=== PATIENT | female | born 1960 | race Caucasian/White ===

== ENCOUNTER 2022-09-11 14:01 | Emergency (ER) | payer MEDICARE, OTHER, SELFPAY ==
[2022-09-11] VITALS (8 sets, daily range): BP systolic 109–141; BP diastolic 53–68; PULSE 70–94; RESP 12–18; TEMP 36.9; O2SAT 93–98
--- NOTE | 2022-09-11 14:13 | DI.RAD.S_ITS ---
PROCEDURE: XR CHEST 1V INDICATIONS: Shortness of breath TECHNIQUE: One view of the chest was acquired. COMPARISON: None. FINDINGS: Surgical changes and devices: Cervical spinal fusion hardware is partially imaged. Sternotomy wires are noted. Lungs and pleura: Lungs are clear. No pleural effusions or pneumothorax. Mediastinum: Mediastinal contours appear normal. Heart size is normal. Bones and chest wall: No suspicious bony lesions. Overlying soft tissues appear unremarkable. IMPRESSION: No acute cardiopulmonary abnormality. Approved by: Eliel Infante M.D. on 09/11/2022 at 15:05
[2022-09-11 14:47] LABS: Add Manual Diff / Slide Review NO; Basophils Absolute Auto 100 /uL (0-100); Basophils Percent Auto 0.8 % (0-2); Eosinophils Absolute Auto 200 /uL (0-450); Eosinophils Percent Auto 1.9 % (2-4); Hematocrit 31.9 % (36-46); Hemoglobin 10.7 g/dL (12.0-16.0); Lymphocytes Absolute Auto 2100 /uL (1100-4500); Lymphocytes Percent Auto 23.8 % (25-40); Mean Corpuscular HGB Conc 33.4 % (30-36); Mean Corpuscular Hemoglobin 28.9 PG (26-34); Mean Corpuscular Volume 86.4 fL (80-100); Monocytes Absolute Auto 800 /uL (0-900); Monocytes Percent Auto 8.6 % (3-14); Neutrophils Absolute Auto 5700 /uL (1500-7000); Neutrophils Percent Auto 64.9 % (50-75); Platelet Count 291 X10^3/uL (150-400); Red Cell Distribution Width 14.5 % (11.6-14.8); White Blood Cell Count 8.8 X10^3/uL (4.5-11.0)
[2022-09-11 14:54] LABS: INR 1.2 (0.9-1.3); Prothrombin Time 13.2 SECONDS (10.1-12.7)
[2022-09-11 14:59] LABS: Alanine Aminotransferase 14 IU/L (<35); Albumin 3.5 g/dL (3.5-5.0); Albumin Globulin Ratio 0.8 (1.0-2.8); Alkaline Phosphatase 70 U/L (38-126); Aspartate Aminotransferase 19 IU/L (14-36); BUN Creatinine Ratio 16.3 (6-22); Bilirubin Total 0.4 mg/dL (0.2-1.3); Blood Urea Nitrogen 17 mg/dL (7-17); Calcium 8.5 mg/dL (8.4-10.2); Carbon Dioxide 26 mmol/L (22-32); Chloride 108 mmol/L (98-107); Estimated Glomerular Filt Rate > 60 mL/min (>60); Globulin 4.3 g/dL (1.7-4.1); Glucose 93 mg/dL (80-110); HEMOLYSIS < 15 (0-50); Sodium 138 mmol/L (137-145); Total Protein 7.8 g/dL (6.3-8.2)
[2022-09-11] MEDS: ALBUTEROL/IPRATROPIUM 3 ML AMPUL INH (14:59)
[2022-09-11 15:00] LABS: Lactate (Lactic Acid) 0.6 mmol/L (0.7-2.1)
--- NOTE | 2022-09-11 15:05 | ED_ITS ---
HPI - SOB/Dyspnea General Chief Complaint: Shortness of Breath/Dyspnea Stated Complaint: upper resp symptoms, SOB Time Seen by Provider: 09/11/22 14:20 Mode of arrival: Family Vehicle History of Present Illness HPI Narrative: Patient is a 61-year-old female history of tobacco abuse presenting today with ongoing cough and body aches for about the last 3 weeks. She feels like it is just not getting any better she is having some phlegm. She also complains of or thopnea at night but denies any peripheral edema. She denies any chest pain. She is low-grade fever she obviously has some nasal congestion as well. Her was recently the hospital with pneumonia. She denies any nausea or vomiting she is having some decrease in appetite. Related Data Previous Rx's Medication Instructions Recorded albuterol sulfate 90 mcg/actuation 2 puff inhalation Q4-6H PRN 09/11/22 aerosol inhaler shortness of breath or wheezing #8.5 grams prednisone 20 mg tablet 40 mg PO DAILY #10 tabs 09/11/22 Allergies Allergy/AdvReac Type Severity Reaction Status Date / Time Penicillins Allergy Rash Verified 09/11/22 14:16 Review of Systems Review of Systems ROS Unobtainable: All systems reviewed & are unremarkable except as noted in HPI and below Patient History Social History Smoking Status: Current every day smoker Smoking Status: Current every day smoker Substance Use Type: does not use Exam Initial Vital Signs Initial Vital Signs: Vital Signs Temperature 98.4 F 09/11/22 14:14 Pulse Rate 94 H 09/11/22 14:14 Respiratory Rate 18 09/11/22 14:14 Blood Pressure 141/68 H 09/11/22 14:14 Pulse Oximetry 96 09/11/22 14:14 Oxygen Delivery Method Room Air 09/11/22 14:14 GENERAL: Alert 61-year-old female appears to not feel well and in no acute distress. HEENT: Head atraumatic,EOMI, pupils reactive, face symmetric, moist mucous membranes CARDIOVASCULAR: Regular rate and rhythm without murmurs, rubs or gallops. RESPIRATORY: Breath sounds equal bilaterally, no wheezes rales or rhonchi. No respiratory distress speaks in full sentences ABDOMEN: Soft, nontender. Normoactive bowel sounds all 4 quadrants. No guarding or rebound. EXTREMITIES: Normal range of motion, no clubbing or edema. Neurovascularly intact NEUROLOGICAL: Alert and oriented x4.Normal gait and speech. SKIN: Warm, dry, no laceration, no petechiae, no rashes or lesions. Course Orders Ordered: Discontinued Medications Albuterol/Ipratropium (Albuterol/Ipratropium 3 Ml Ampul) 3 ml INH NOW ONE Stop: 09/11/22 14:58 Last Admin: 09/11/22 14:59 Dose: 3 ml Documented By: DARCIE Methylprednisolone (Methylprednisolone 125 Mg/2 Ml Vial) 125 mg IV NOW ONE Stop: 09/11/22 15:18 Last Admin: 09/11/22 15:35 Dose: 125 mg Documented By: AT Vital Signs Vital signs: Vital Signs - 8 hr 09/11/22 14:14 09/11/22 14:59 09/11/22 14:20 Temperature 98.4 F Pulse Rate 94 H 71 76 Respiratory Rate 18 18 14 Blood Pressure 141/68 H Pulse Oximetry 96 98 97 Oxygen Delivery Method Room Air Room Air 09/11/22 14:22 09/11/22 14:22 09/11/22 14:30 Temperature Pulse Rate 70 Respiratory Rate 13 Blood Pressure 131/63 117/58 L Pulse Oximetry 95 Oxygen Delivery Method 09/11/22 14:30 09/11/22 15:00 09/11/22 15:00 Temperature Pulse Rate 74 72 Respiratory Rate 13 15 Blood Pressure 111/53 L Pulse Oximetry 97 97 Oxygen Delivery Method Room Air 09/11/22 15:30 09/11/22 15:30 09/11/22 16:00 Temperature Pulse Rate 86 Respiratory Rate 12 Blood Pressure 109/53 L 110/53 L Pulse Oximetry 94 Oxygen Delivery Method 09/11/22 16:00 Temperature Pulse Rate 84 Respiratory Rate 13 Blood Pressure Pulse Oximetry 93 Oxygen Delivery Method MDM - SOB/Dyspnea Lab Data 09/11/22 14:30 09/11/22 14:30 Labs: Lab Results 09/11/22 09/11/22 09/11/22 Range/Units 14:30 14:30 14:30 WBC 8.8 (4.5-11.0) X10^3/uL RBC 3.70 L (4.0-5.2) X10^6/uL Hgb 10.7 L (12.0-16.0) g/dL Hct 31.9 L (36-46) % MCV 86.4 (80-100) fL MCH 28.9 (26-34) PG MCHC 33.4 (30-36) % RDW 14.5 (11.6-14.8) % Plt Count 291 (150-400) X10^3/uL Neut % (Auto) 64.9 (50-75) % Lymph % (Auto) 23.8 L (25-40) % [place] % (Auto) 8.6 (3-14) % Eos % (Auto) 1.9 L (2-4) % Baso % (Auto) 0.8 (0-2) % Neut # (Auto) 5700 (8300-3585) /uL Lymph # (Auto) 2100 (7565-7345) /uL [place] # (Auto) 800 (0-900) /uL Eos # (Auto) 200 (0-450) /uL Baso # (Auto) 100 (0-100) /uL PT 13.2 H (10.1-12.7) SECONDS INR 1.2 (0.9-1.3) Sodium 138 (137-145) mmol/L Potassium 4.0 (3.4-5.1) mmol/L Chloride 108 H (98-107) mmol/L Carbon Dioxide 26 (22-32) mmol/L BUN 17 (7-17) mg/dL Creatinine 1.04 (0.52-1.04) mg/dL Estimated GFR > 60 (>60) mL/min BUN/Creatinine Ratio 16.3 (6-22) Glucose 93 (80-110) mg/dL Lactate (0.7-2.1) mmol/L Calcium 8.5 (8.4-10.2) mg/dL Total Bilirubin 0.4 (0.2-1.3) mg/dL AST 19 (14-36) IU/L ALT 14 (<35) IU/L Alkaline Phosphatase 70 (38-126) U/L Troponin I < 0.012 (0.01-0.034) ng/mL NT-Pro-B Natriuret Pep 210 H (<125) pg/mL Total Protein 7.8 (6.3-8.2) g/dL Albumin 3.5 (3.5-5.0) g/dL Globulin 4.3 H (1.7-4.1) g/dL Albumin/Globulin Ratio 0.8 L (1.0-2.8) Procalcitonin (<0.5) ng/mL Chlamy pneumoniae PCR (Not Detect) Adenovirus (PCR) (Not Detect) B. pertussis DNA (PCR) (Not Detecte) B.parapertussis DNA PCR (Not Detecte) Coronavirus OC43 (PCR) (Not Detect) Coronavirus HKU1 (PCR) (Not Detect) Coronavirus 229E (PCR) (Not Detect) SARS-CoV-2 (PCR) (Not Detecte) Coronavirus NL63 (PCR) (Not Detect) Human Metapneumovir PCR (Not Detect) Influenza Type A (PCR) (Not Detect) Influenza Type B (PCR) (Not Detect) M. pneumoniae (PCR) (Not Detect) Parainfluenza 1 (PCR) (Not Detect) Parainfluenza 2 (PCR) (Not Detect) Parainfluenza 3 (PCR) (Not Detect) Parainfluenza 4 (PCR) (Not Detect) RSV (PCR) (Not Detect) Entero/Rhino (PCR) (Not Detect) 09/11/22 09/11/22 09/11/22 Range/Units 14:30 14:30 14:37 WBC (4.5-11.0) X10^3/uL RBC (4.0-5.2) X10^6/uL Hgb (12.0-16.0) g/dL Hct (36-46) % MCV (80-100) fL MCH (26-34) PG MCHC (30-36) % RDW (11.6-14.8) % Plt Count (150-400) X10^3/uL Neut % (Auto) (50-75) % Lymph % (Auto) (25-40) % [place] % (Auto) (3-14) % Eos % (Auto) (2-4) % Baso % (Auto) (0-2) % Neut # (Auto) (3076-0140) /uL Lymph # (Auto) (7171-2774) /uL [place] # (Auto) (0-900) /uL Eos # (Auto) (0-450) /uL Baso # (Auto) (0-100) /uL PT (10.1-12.7) SECONDS INR (0.9-1.3) Sodium (137-145) mmol/L Potassium (3.4-5.1) mmol/L Chloride (98-107) mmol/L Carbon Dioxide (22-32) mmol/L BUN (7-17) mg/dL Creatinine (0.52-1.04) mg/dL Estimated GFR (>60) mL/min BUN/Creatinine Ratio (6-22) Glucose (80-110) mg/dL Lactate 0.6 L (0.7-2.1) mmol/L Calcium (8.4-10.2) mg/dL Total Bilirubin (0.2-1.3) mg/dL AST (14-36) IU/L ALT (<35) IU/L Alkaline Phosphatase (38-126) U/L Troponin I (0.01-0.034) ng/mL NT-Pro-B Natriuret Pep (<125) pg/mL Total Protein (6.3-8.2) g/dL Albumin (3.5-5.0) g/dL Globulin (1.7-4.1) g/dL Albumin/Globulin Ratio (1.0-2.8) Procalcitonin 0.04 (<0.5) ng/mL Chlamy pneumoniae PCR Not detected (Not Detect) Adenovirus (PCR) Not detected (Not Detect) B. pertussis DNA (PCR) Not detected (Not Detecte) B.parapertussis DNA PCR Not detected (Not Detecte) Coronavirus OC43 (PCR) Not detected (Not Detect) Coronavirus HKU1 (PCR) Not detected (Not Detect) Coronavirus 229E (PCR) Not detected (Not Detect) SARS-CoV-2 (PCR) Not detected (Not Detecte) Coronavirus NL63 (PCR) Detected H (Not Detect) Human Metapneumovir PCR Not detected (Not Detect) Influenza Type A (PCR) Not detected (Not Detect) Influenza Type B (PCR) Not detected (Not Detect) M. pneumoniae (PCR) Not detected (Not Detect) Parainfluenza 1 (PCR) Not detected (Not Detect) Parainfluenza 2 (PCR) Not detected (Not Detect) Parainfluenza 3 (PCR) Not detected (Not Detect) Parainfluenza 4 (PCR) Not detected (Not Detect) RSV (PCR) Not detected (Not Detect) Entero/Rhino (PCR) Detected H (Not Detect) Imaging Data Chest x-ray: Radiologist's Impression: PROCEDURE:? XR CHEST 1V ? INDICATIONS:? Shortness of breath ? TECHNIQUE:? One view of the chest was acquired.? ? COMPARISON:? None. ? FINDINGS:? ? Surgical changes and devices:? Cervical spinal fusion hardware is partially imaged.? Sternotomy wires are noted. ? Lungs and pleura:? Lungs are clear.? No pleural effusions or pneumothorax.? ? Mediastinum:? Mediastinal contours appear normal.? Heart size is normal.? ? Bones and chest wall:? No suspicious bony lesions.? Overlying soft tissues appear unremarkable.? ? IMPRESSION:? No acute cardiopulmonary abnormality. ? ? ? Approved by: Eliel Infante M.D. on 09/11/2022 at 15:05? ECG Data Interpretation: Normal sinus rhythm rate 71 NJ interval 152 QRS [address] changes no T- wave inversions, no priors MDM Narrative Medical decision making narrative: Patient 61-year-old female history of tobacco abuse presenting today with ongoing cough body aches upper respiratory like symptoms for the last 3 weeks without any improvement. Does not show any pneumonia. She is no mild anemia with 10.8 hematocrit 31.9, she has no left shift, electrolytes show any abnorm ality lactate is 0.6, procalcitonin is 0.04 BNP is 210 and troponin negative. Respiratory panel is positive for coronavirus, entero/rhinovirus. At this time patient's symptoms are likely secondary to multiple viruses. She is not hypoxic hypotensive or tachycardic she does not meet any admission criteria there is no evidence of severe sepsis. She needs no antibiotics. She was given DuoNeb nebu lizer here in the emergency department is seems to have helped. She was also given Solu-Medrol. Type will fit her with a prednisone taper No evidence of congestive heart failure this is unlikely pulmonary embolism due to infectious like symptoms, no pneumothorax or pneumonia not identified on x-ra y Discharge Plan Departure Patient Disposition: Home Clinical Impression: Upper respiratory infection Instructions: DI for Viral Upper Respiratory Infection -- Adult Activity Restrictions/Additional Instructions: *You have been diagnosed with upper respiratory infection, positive for non- COVID coronavirus, entero/rhinovirus *What to do: At this time no antibiotics are needed. Continue to rest and stay hydrated you will get better but are currently battling 3 different viruses *Continue to take medications as directed Prednisone 40 mg once a day for 5 days-> [facility] Albuterol inhaler 1-2 puffs every 6 hours if needed for coughing or shortness of breath *Follow up with your primary care provider in 2-3 days or call [phone] *Return to ER if you should have increasing shortness of breath persistent cough dizziness lightheadedness not tolerating fluids or any new, worsening or concerning symptoms Prescriptions: New prednisone 20 mg tablet 40 mg PO DAILY Qty: 10 0RF albuterol sulfate 90 mcg/actuation HFA aerosol inhaler 2 puff INHALATION Q4-6H PRN (Reason: shortness of breath or wheezing) Qty: 8.5 0RF Stand Alone Forms: Patient Portal/API
[2022-09-11 15:12] LABS: NT-proBNP (BNP-Adult 18+) 210 pg/mL (<125); Troponin I < 0.012 ng/mL (0.01-0.034)
[2022-09-11 15:15] LABS: Adenovirus Not Detected (Not Detect); Coronavirus 229E Not Detected (Not Detect); Coronavirus HKU1 Not Detected (Not Detect); Coronavirus NL 63 Detected (Not Detect); SARS- CoV-2 Not Detected (Not Detecte)
[2022-09-11 15:16] LABS: B. parapertussis Not Detected (Not Detecte); Bordetella pertussis Not Detected (Not Detecte); Chlamydophila pneumoniae Not Detected (Not Detect); Coronavirus OC43 Not Detected (Not Detect); Human Metapneumovirus Not Detected (Not Detect); Human Rhinovirus/Enterovirus Detected (Not Detect); Influenza A Not Detected (Not Detect); Influenza B Not Detected (Not Detect); Mycoplasma pneumoniae Not Detected (Not Detect); Parainfluenza Virus 1 Not Detected (Not Detect); Parainfluenza Virus 2 Not Detected (Not Detect); Parainfluenza Virus 3 Not Detected (Not Detect); Parainfluenza Virus 4 Not Detected (Not Detect); Respiratory Syncytial Virus Not Detected (Not Detect)
[2022-09-11 15:17] LABS: Procalcitonin 0.04 ng/mL (<0.5)
[2022-09-11] MEDS: methylPREDNISolone 125 MG/2 ML VIAL IV (15:35)
--- NOTE | 2022-09-11 16:41 | PC.NURSE ---
RT at bedside providing spacer training.
== END 2022-09-11 16:58 | disposition home or self-care (01) ==
PROVIDERS: Emergency Provider Emergency Medicine
DX: J06.9 Acute upper respiratory infection, unspecified (principal); R06.02 Shortness of breath; B34.2 Coronavirus infection, unspecified; B34.8 Other viral infections of unspecified site; Z20.822 Contact with and (suspected) exposure to COVID-19
CPT/HCPCS: 36415; 71045; 80053; 83605; 83880; 84145; 84484; 85025; 85610; 87633; 93005; 93010; 94640; 96374; 99284; J2930

== ENCOUNTER 2023-02-14 11:46 | Emergency (ER) | payer MEDICARE, OTHER, SELFPAY ==
[2023-02-14] VITALS (11 sets, daily range): BP systolic 149–163; BP diastolic 66–120; PULSE 53–88; RESP 14–18; TEMP 37; O2SAT 96–100; BMI 33.0
[2023-02-14] MEDS: ONDANSETRON 4 MG/2 ML INJ IV (12:09)
[2023-02-14] MEDS: SODIUM CHLORIDE 0.9% 1,000 ML 1000 ML IV ×2 (12:10→14:12)
--- NOTE | 2023-02-14 12:20 | ED.NAVMDI ---
HPI - Nausea/Vomiting/Diarrhea General Chief complaint: Nausea/Vomiting/Diarrhea Stated complaint: dry heaves/dehydrated Time Seen by Provider: 02/14/23 11:50 Source: patient Mode of arrival: Ambulatory History of Present Illness HPI Narrative: Patient is a 62-year-old female who is here for evaluation of approximately 3 days of vomiting. No diarrhea. Other members of the family had fevers but no GI symptoms. Patient has had subjective fevers at home. No recent travel. She did complete a course of Macrobid for urinary tract infection approximately 1 week ago. Has not tried anything for her symptoms prior to arrival. Related Data Previous Rx's Medication Instructions Recorded albuterol sulfate 90 mcg/actuation 2 puff inhalation Q4-6H PRN 09/11/22 aerosol inhaler shortness of breath or wheezing #8.5 grams prednisone 20 mg tablet 40 mg PO DAILY #10 tabs 09/11/22 ondansetron 4 mg disintegrating 4 mg PO Q6H PRN nausea and 02/14/23 tablet vomiting #10 tabs Allergies Allergy/AdvReac Type Severity Reaction Status Date / Time Penicillins Allergy Rash Verified 09/11/22 14:16 Review of Systems Constitutional Constitutional: Reports system reviewed and no additional complaints, except as documented Cardiovascular Cardiovascular: Reports system reviewed and no additional complaints, except as documented Respiratory Respiratory: Reports system reviewed and no additional complaints, except as documented Gastrointestinal Gastrointestinal: Reports system reviewed and no additional complaints, except as documented Genitourinary Genitourinary: Reports system reviewed and no additional complaints, except as documented Hematologic/Lymphatic On Anticoagulants: No Patient History Social History Smoking Status: Current every day smoker Smoking Status: Current every day smoker alcohol intake frequency: holidays/special occasions only Substance Use Type: does not use Exam Initial Vital Signs Initial Vital Signs: Vital Signs Temperature 98.6 F 02/14/23 12:00 Pulse Rate 71 02/14/23 12:00 Respiratory Rate 18 02/14/23 12:00 Blood Pressure 163/83 H 02/14/23 12:00 Pulse Oximetry 97 02/14/23 12:00 Oxygen Delivery Method Room Air 02/14/23 12:00 Const General: cooperative and comfortable HENMT Head: normal to inspection and normocephalic Resp Effort & Inspection: normal respiratory effort Cardio Rate: regular rate GI Inspection: non-distended Skin General: no rashes or lesions noted Neuro General: patient alert, patient awake and moves all extremities Extrem General: normal to inspection and capillary refill normal Course Orders Ordered: ED Orders 02/14/23 11:55 COVID19 -Nasal RAPID Stat Discontinued Medications Sodium Chloride (Normal Saline 0.9%) 1,000 mls @ 1,000 mls/hr IV BOLUS ONE Stop: 02/14/23 12:50 Last Infusion: 02/14/23 13:10 Dose: 0 mls/hr Documented By: Admin: 02/14/23 12:10 Dose: 1,000 mls/hr Documented By: LEN Sodium Chloride (Normal Saline 0.9%) 1,000 mls @ 1,000 mls/hr IV BOLUS ONE Stop: 02/14/23 14:48 Last Infusion: 02/14/23 15:17 Dose: 0 mls/hr Documented By: Admin: 02/14/23 14:12 Dose: 1,000 mls/hr Documented By: LEN Ondansetron HCl (Ondansetron 4 Mg/2 Ml Inj) 4 mg IV NOW ONE Stop: 02/14/23 11:52 Last Admin: 02/14/23 12:09 Dose: 4 mg Documented By: LEN Vital Signs Vital signs: Vital Signs - 8 hr 02/14/23 12:00 02/14/23 14:36 02/14/23 13:35 Temperature 98.6 F Pulse Rate 71 53 L 54 L Respiratory Rate 18 18 Blood Pressure 163/83 H 159/70 H Pulse Oximetry 97 100 98 Oxygen Delivery Method Room Air Room Air 02/14/23 14:00 02/14/23 14:01 02/14/23 14:01 Temperature Pulse Rate 55 L 56 L Respiratory Rate Blood Pressure 157/70 H Pulse Oximetry 96 97 Oxygen Delivery Method 02/14/23 14:30 02/14/23 14:31 02/14/23 14:31 Temperature Pulse Rate 54 L 54 L Respiratory Rate Blood Pressure 159/70 H Pulse Oximetry 99 100 Oxygen Delivery Method MDM - Nausea/Vomiting/Diarrhea Lab Data Labs: Lab Results 02/14/23 Range/Units 11:55 SARS-CoV-2 (PCR) Positive H (Negative) MDM Narrative Medical decision making narrative: Patient is well-appearing. Does have dry mucous membranes but did receive 2 L of normal saline by IV. During her time here she did develop upper respiratory symptoms. Her COVID test was positive. She was informed of this. She has been able to tolerate small amounts of fluid. I do feel that we can hold on any labs or any radiologic studies. Will discharge patient home with nausea medication. Discharge Plan Departure Patient Disposition: Home Clinical Impression: Nausea and vomiting, COVID-19 Instructions: Nausea and Vomiting-Adult, COVID-19 Activity Restrictions/Additional Instructions: Your COVID positive CD need to follow all of the current CDC guidelines with regard to quarantine. I do recommend that you increase your fluid intake by drinking small amounts more frequently. Use the nausea medication as needed. Contact your primary doctor for follow-up. Prescriptions: New ondansetron 4 mg tablet,disintegrating 4 mg PO Q6H PRN (Reason: nausea and vomiting) Qty: 10 0RF No Action prednisone 20 mg tablet 40 mg PO DAILY Qty: 10 0RF albuterol sulfate 90 mcg/actuation HFA aerosol inhaler 2 puff INHALATION Q4-6H PRN (Reason: shortness of breath or wheezing) Qty: 8.5 0RF Referrals: Stanton Mas MD [Primary Care Provider] - Stand Alone Forms: Patient Portal/API
[2023-02-14 13:33] LABS: COVID19 -Nasal RAPID POSITIVE (Negative)
== END 2023-02-14 15:58 | disposition home or self-care (01) ==
PROVIDERS: Emergency Provider Emergency Medicine; PCP Internal Medicine
DX: U07.1 COVID-19 (principal); R11.2 Nausea with vomiting, unspecified
CPT/HCPCS: 36415; 87635; 96361; 96374; 99284; C9803; J2405

== ENCOUNTER 2023-07-25 09:40 | Emergency (ER) | payer MEDICARE, OTHER, SELFPAY ==
[2023-07-25 09:46] VITALS: BP 148/68; PULSE 81; RESP 14; TEMP 36.6; O2SAT 99; BMI 32.8
[2023-07-25 10:21] LABS: Appearance Urine UA SL CLOUDY; Bilirubin Urine UA NEGATIVE (NEGATIVE); Color Urine UA BROWN; Glucose Urine UA NEGATIVE (Negative); Ketones Urine UA NEGATIVE (NEGATIVE); Leukocyte Esterase Urine UA 1+ (NEGATIVE); Nitrite Urine UA NEGATIVE (Negative); Occult Blood Urine UA 3+ (Negative); Protein Urine UA 2+ (Negative); Specific Gravity Urine UA 1.015 (1.000-1.035); Urobilinogen Urine UA 0.2 E.U./dL (0.2); pH Urine UA 6.5 (4.5-8.0)
[2023-07-25 10:22] LABS: Urine Volume 10mL (spun)
[2023-07-25 10:26] LABS: Bacteria Urine None Seen; Culture Indicated Urine Specimen Cultured; RBC Urine 30-100/HPF (0-5/HPF); Squamous Epithelial Cell Urine 0-1 /HPF (0-5/HPF); WBC Urine 5-10/HPF (0-5/HPF)
--- NOTE | 2023-07-25 11:28 | ED_ITS ---
HPI - Female Genitourinary <Clyde Metzger PA-C - Last Filed: 07/25/23 16:27> General Chief complaint: Urogenital-Female Stated complaint: passing blood when urinating Time Seen by Provider: 07/25/23 11:16 Source: patient Mode of arrival: Ambulatory History of Present Illness HPI Narrative: 82-year-old female with past medical history hyperlipidemia, chronic pain, frequent UTIs presents to the ED with 2 months of urinary hesitancy. Patient states that this morning she soft roxie blood in her urine which brought her to the ED. patient denies fever, chills, nausea, vomiting, chest pain, shortness of breath, dysuria, lightheadedness, dizziness, syncope. Patient denies urinary frequency, urinary urgency. Patient does endorse frequent UTIs, last UTI was 3 months ago. However, patient states that her customary urinary tract infection symptoms such as dysuria and frequency are absent this time around. Patient was seen by her PCP, an ultrasound was performed last week. Patient also endorses a history of kidney stones. Patient is a current smoker, has smoked for 40 years. Patient is not on blood thinners, takes 81 mg aspirin daily. Related Data Previous Rx's Medication Instructions Recorded cefpodoxime 200 mg tablet 200 mg PO BID 10 days #20 tabs 07/25/23 ciprofloxacin HCl 500 mg tablet 500 mg PO Q12H 7 days #14 tabs 07/25/23 tamsulosin 0.4 mg capsule 0.4 mg PO BEDTIME #30 caps 07/25/23 Allergies Allergy/AdvReac Type Severity Reaction Status Date / Time Penicillins Allergy Rash Verified 07/25/23 09:49 Review of Systems <Clyde Metzger PA-C - Last Filed: 07/25/23 16:27> Constitutional Constitutional: Denies chills, Denies fatigue, Denies fever(s), Denies frequent falls, Denies lethargy and Denies weakness Eyes Eyes: Denies change in vision, Denies eye discharge, Denies irritation and Denies loss of vision ENT Ears, Nose, Mouth, and Throat: Denies change in voice, Denies dizziness, Denies neck pain, Denies sore throat and Denies throat swelling Cardiovascular Cardiovascular: Denies chest pain, Denies irregular heart rhythm, Denies lightheadedness, Denies palpitations, Denies dyspnea, Denies dyspnea on exertion and Denies orthopnea Respiratory Respiratory: Denies cough, Denies dyspnea, Denies dyspnea on exertion and Denies wheezing Gastrointestinal Gastrointestinal: Denies abdominal pain, Denies change in bowel habits, Denies diarrhea, Denies nausea and Denies vomiting Musculoskeletal Musculoskeletal: Denies neck pain and Denies numbness Integumentary/Breasts Skin/Breast: Denies pruritus, Denies erythema, Denies rash and Denies wounds Neurologic Neurologic: Denies behavioral changes, Denies confusion, Denies dizziness, Denies frequent falls, Denies loss of vision, Denies numbness and Denies weakness Psychiatric Psychiatric: Denies anxiety, Denies behavioral changes, Denies confusion, Denies depression, Denies homicidal ideation and Denies suicidal ideation Endocrine Endocrine: Denies fatigue, Denies flushing and Denies palpitations Hematologic/Lymphatic Hematologic/Lymphatic: Denies easy bruising Allergic/Immunologic Allergic/Immunologic: Denies urticaria, Denies throat swelling and Denies wheezing Patient History <Clyde Metzger PA-C - Last Filed: 07/25/23 16:27> alcohol intake frequency: holidays/special occasions only Substance Use Type: does not use Exam <TETE Lara Last Filed: 07/25/23 16:27> Narrative Exam Narrative: Const General:?cooperative, healthy appearing and comfortable [facility] Head:?normal to inspection Ears:?hearing grossly normal bilaterally Nose:?external nose normal Face and sinus:?normal facial exam and sinuses nontender Mouth:?oral mucosae normal Throat:?posterior oropharynx normal Eyes General:?appearance normal, both eyes and all related structures Neck Neck:?normal visual inspection and no lymphadenopathy noted Resp Effort & Inspection:?normal respiratory effort Auscultation:?clear to auscultation bilaterally Cardio Rate:?regular rate Rhythm:?regular rhythm GI Abdomen is soft, nondistended, nontender to palpation. There is no CVA tenderness. Neuro General:?patient alert, patient awake and patient oriented x3 Initial Vital Signs Initial Vital Signs: Vital Signs Temperature 98 F 07/25/23 09:46 Pulse Rate 81 07/25/23 09:46 Respiratory Rate 14 07/25/23 09:46 Blood Pressure 148/68 H 07/25/23 09:46 Pulse Oximetry 99 07/25/23 09:46 Oxygen Delivery Method Room Air 07/25/23 09:46 <Madeline Sharp DO - Last Filed: 07/25/23 19:53> Initial Vital Signs Initial Vital Signs: Vital Signs Temperature 98 F 07/25/23 09:46 Pulse Rate 81 07/25/23 09:46 Respiratory Rate 14 07/25/23 09:46 Blood Pressure 148/68 H 07/25/23 09:46 Pulse Oximetry 99 07/25/23 09:46 Oxygen Delivery Method Room Air 07/25/23 09:46 Course <Clyde Metzger PA-C - Last Filed: 07/25/23 16:27> Orders Ordered: ED Orders 07/25/23 11:29 CT abdomen pelvis w con Stat 07/25/23 12:10 CBC Auto Diff [Complete Blood Count AUTO DIFF] Stat CMP [Comprehensive Metabolic Panel] Stat Lactate (Lactic Acid) Stat Lipase Stat 07/25/23 14:17 XR KUB Stat Discontinued Medications Diphenhydramine HCl (Diphenhydramine 50 Mg/Ml Vial) 25 mg IV NOW ONE Stop: 07/25/23 15:00 Last Admin: 07/25/23 15:00 Dose: 25 mg Documented By: YARY Ciprofloxacin (Cipro) 400 mg in 200 mls @ 200 mls/hr IV NOW ONE Stop: 07/25/23 15:09 Last Infusion: 07/25/23 14:55 Dose: 0 mls/hr Documented By: Admin: 07/25/23 14:42 Dose: 200 mls/hr Documented By: YARY Ceftriaxone Sodium 1,000 mg/ (Sodium Chloride) 100 mls @ 200 mls/hr IV NOW ONE Stop: 07/25/23 15:30 Last Infusion: 07/25/23 16:12 Dose: Infused Documented By: Admin: 07/25/23 15:38 Dose: 200 mls/hr Documented By: YARY Vital Signs Vital signs: Vital Signs - 8 hr 07/25/23 12:11 07/25/23 14:08 07/25/23 15:54 Pulse Rate 65 65 67 Respiratory Rate 16 18 18 Blood Pressure 123/53 L 144/67 H 142/65 H Pulse Oximetry 98 99 98 Oxygen Delivery Method Room Air Room Air Room Air <DO Dionisio Wynn Last Filed: 07/25/23 19:53> Orders Ordered: ED Orders 07/25/23 11:29 CT abdomen pelvis w con Stat 07/25/23 12:10 CBC Auto Diff [Complete Blood Count AUTO DIFF] Stat CMP [Comprehensive Metabolic Panel] Stat Lactate (Lactic Acid) Stat Lipase Stat 07/25/23 14:17 XR KUB Stat Discontinued Medications Diphenhydramine HCl (Diphenhydramine 50 Mg/Ml Vial) 25 mg IV NOW ONE Stop: 07/25/23 15:00 Last Admin: 07/25/23 15:00 Dose: 25 mg Documented By: YARY Ciprofloxacin (Cipro) 400 mg in 200 mls @ 200 mls/hr IV NOW ONE Stop: 07/25/23 15:09 Last Infusion: 07/25/23 14:55 Dose: 0 mls/hr Documented By: Admin: 07/25/23 14:42 Dose: 200 mls/hr Documented By: YARY Ceftriaxone Sodium 1,000 mg/ (Sodium Chloride) 100 mls @ 200 mls/hr IV NOW ONE Stop: 07/25/23 15:30 Last Infusion: 07/25/23 16:12 Dose: Infused Documented By: Admin: 07/25/23 15:38 Dose: 200 mls/hr Documented By: YARY Vital Signs Vital signs: Vital Signs - 8 hr 07/25/23 12:11 07/25/23 14:08 07/25/23 15:54 Pulse Rate 65 65 67 Respiratory Rate 16 18 18 Blood Pressure 123/53 L 144/67 H 142/65 H Pulse Oximetry 98 99 98 Oxygen Delivery Method Room Air Room Air Room Air MDM - Female Genitourinary <Clyde Metzger PA-C - Last Filed: 07/25/23 16:27> Lab Data 07/25/23 12:10 07/25/23 12:10 Labs: Lab Results 07/25/23 07/25/23 Range/Units 10:13 12:10 WBC 7.8 (4.5-11.0) X10^3/uL RBC 4.32 (4.0-5.2) X10^6/uL Hgb 13.1 (12.0-16.0) g/dL Hct 38.9 (36-46) % MCV 90.0 (80-100) fL MCH 30.2 (26-34) PG MCHC 33.6 (30-36) % RDW 13.6 (11.6-14.8) % Plt Count 177 (150-400) X10^3/uL Neut % (Auto) 58.7 (50-75) % Lymph % (Auto) 30.2 (25-40) % [place] % (Auto) 9.0 (3-14) % Eos % (Auto) 1.6 L (2-4) % Baso % (Auto) 0.5 (0-2) % Neut # (Auto) 4600 (0863-0083) /uL Lymph # (Auto) 2400 (6513-7785) /uL [place] # (Auto) 700 (0-900) /uL Eos # (Auto) 100 (0-450) /uL Baso # (Auto) 0 (0-100) /uL Sodium 140 (137-145) mmol/L Potassium 4.0 (3.4-5.1) mmol/L Chloride 108 H (98-107) mmol/L Carbon Dioxide 28 (22-32) mmol/L BUN 19 H (7-17) mg/dL Creatinine 0.99 (0.52-1.04) mg/dL Estimated GFR > 60 (>60) mL/min BUN/Creatinine Ratio 19.2 (6-22) Glucose 86 (80-110) mg/dL Lactate 0.9 (0.7-2.1) mmol/L Calcium 9.3 (8.4-10.2) mg/dL Total Bilirubin 0.5 (0.2-1.3) mg/dL AST 24 (14-36) IU/L ALT 16 (<35) IU/L Alkaline Phosphatase 59 (38-126) U/L Total Protein 7.6 (6.3-8.2) g/dL Albumin 4.1 (3.5-5.0) g/dL Globulin 3.5 (1.7-4.1) g/dL Albumin/Globulin Ratio 1.2 (1.0-2.8) Lipase 47 (23-300) U/L Urine Color Brown Urine Appearance Sl cloudy Urine pH 6.5 (4.5-8.0) Ur Specific [place] 1.015 (1.000-1.035) Urine Protein 2+ H (Negative) Urine Glucose (UA) Negative (Negative) g/dL Urine Ketones Negative (NEGATIVE) Urine Occult Blood 3+ H (Negative) Urine Nitrate Negative (Negative) Urine Bilirubin Negative (NEGATIVE) Urine Urobilinogen 0.2 (0.2) E.U./dL Ur Leukocyte Esterase 1+ H (NEGATIVE) Urine RBC 30-100/hpf H (0-5/HPF) Urine WBC 5-10/hpf H (0-5/HPF) Ur Squamous Epith Cells 0-1 /hpf (0-5/HPF) Urine Bacteria None seen (None) Ur Culture Indicated? Specimen cultured Vol Urine Centrifuged 10ml (spun) MDM Narrative Medical decision making narrative: 82-year-old female with past medical history hyperlipidemia, chronic pain, frequent UTIs presents to the ED with 2 months of urinary hesitancy. Concern for UTI versus pyelonephritis versus nephrolithiasis versus malignancy versus other intra-abdominal pathology versus other. Will obtain labs, lactate, lipase, UA, CT abdomen pelvis. Will reassess. UA positive for UTI. Urine shows 3+ occult blood, 1+ leukocyte esterase, 30-100 urine RBC, 5-10 urine WBC. Labs within normal limits. CT abdomen pelvis shows a 5-6 mm stone in the proximal right ureter, resulting in moderate hydronephrosis and mild kidney edema. There is a small burden of left-sided nonobstructing nephrolithiasis, largest measuring 8 mm. Discussed findings with urologist Dr. Leger. He recommends doing a dose of IV antibiotics in the ED, followed with a antibiotic p.o. prescription and a prescription for tamsulosin. He will see the patient in clinic tomorrow for further evaluation and treatment. Also obtained a x-ray KUB. Patient states allergy to penicillin with the adverse reaction being rash. Patient states that she has tolerated ciprofloxacin well in the past. Patient was started on an IV dose of ciprofloxacin 400 mg, following which she developed an allergic reaction with erythema, hives and itching around the site of the IV. No lip swelling, tongue swelling or trouble breathing or wheezing. The IV antibiotic was stopped and patient was given 25 mg of Benadryl IV, following which patient's erythema and itching resolved. Patient was given 1 g of ceftriaxone via a different IV, patient tolerated well without any adverse effects. Called [facility]'s pharmacy in [place] to cancel the prescription for ciprofloxacin and sent in a new prescription for cefpodoxime. Counseled patient on signs of allergic reactions and anaphylaxis. She agrees to stop taking the medication and call 911 if she has any allergic reactions. Discussed findings of UTI and obstructing kidney stone with patient. She agrees to follow-up with Dr. Leger tomorrow. ED return precautions were discussed with patient. She verbalized understanding. Medical records reviewed: Yes <Madeline Sharp, DO - Last Filed: 07/25/23 19:53> Lab Data Labs: Lab Results 07/25/23 07/25/23 Range/Units 10:13 12:10 WBC 7.8 (4.5-11.0) X10^3/uL RBC 4.32 (4.0-5.2) X10^6/uL Hgb 13.1 (12.0-16.0) g/dL Hct 38.9 (36-46) % MCV 90.0 (80-100) fL MCH 30.2 (26-34) PG MCHC 33.6 (30-36) % RDW 13.6 (11.6-14.8) % Plt Count 177 (150-400) X10^3/uL Neut % (Auto) 58.7 (50-75) % Lymph % (Auto) 30.2 (25-40) % [place] % (Auto) 9.0 (3-14) % Eos % (Auto) 1.6 L (2-4) % Baso % (Auto) 0.5 (0-2) % Neut # (Auto) 4600 (7544-1923) /uL Lymph # (Auto) 2400 (9853-4414) /uL [place] # (Auto) 700 (0-900) /uL Eos # (Auto) 100 (0-450) /uL Baso # (Auto) 0 (0-100) /uL Sodium 140 (137-145) mmol/L Potassium 4.0 (3.4-5.1) mmol/L Chloride 108 H (98-107) mmol/L Carbon Dioxide 28 (22-32) mmol/L BUN 19 H (7-17) mg/dL Creatinine 0.99 (0.52-1.04) mg/dL Estimated GFR > 60 (>60) mL/min BUN/Creatinine Ratio 19.2 (6-22) Glucose 86 (80-110) mg/dL Lactate 0.9 (0.7-2.1) mmol/L Calcium 9.3 (8.4-10.2) mg/dL Total Bilirubin 0.5 (0.2-1.3) mg/dL AST 24 (14-36) IU/L ALT 16 (<35) IU/L Alkaline Phosphatase 59 (38-126) U/L Total Protein 7.6 (6.3-8.2) g/dL Albumin 4.1 (3.5-5.0) g/dL Globulin 3.5 (1.7-4.1) g/dL Albumin/Globulin Ratio 1.2 (1.0-2.8) Lipase 47 (23-300) U/L Urine Color Brown Urine Appearance Sl cloudy Urine pH 6.5 (4.5-8.0) Ur Specific [place] 1.015 (1.000-1.035) Urine Protein 2+ H (Negative) Urine Glucose (UA) Negative (Negative) g/dL Urine Ketones Negative (NEGATIVE) Urine Occult Blood 3+ H (Negative) Urine Nitrate Negative (Negative) Urine Bilirubin Negative (NEGATIVE) Urine Urobilinogen 0.2 (0.2) E.U./dL Ur Leukocyte Esterase 1+ H (NEGATIVE) Urine RBC 30-100/hpf H (0-5/HPF) Urine WBC 5-10/hpf H (0-5/HPF) Ur Squamous Epith Cells 0-1 /hpf (0-5/HPF) Urine Bacteria None seen (None) Ur Culture Indicated? Specimen cultured Vol Urine Centrifuged 10ml (spun) Discharge Plan Departure Patient Disposition: Home Clinical Impression: Kidney stone Instructions: DI for Kidney Infection, DI for Kidney Stones Activity Restrictions/Additional Instructions: You were evaluated in the ED today for blood in the urine. Your urine is positive for a urinary tract infection. Labs are normal. CT scan shows a 5-6 mm stone in the proximal right ureter, causing some swelling of the kidney. Urologist Dr. Leger was consulted and he will see you in the office tomorrow for further evaluation and treatment. You may call [facility] at [phone] to make an appointment. You have been given a dose of IV antibiotics in the ED today. You were also being prescribed oral antibiotics to continue at home. You were also being prescribed tamsulosin to take nightly to ease passage of the stone. Please take the medications as prescribed. Please maintain good hydration. Return to the ED if you have worsening symptoms, persistent vomiting, fever, chills. Prescriptions: New ciprofloxacin HCl 500 mg tablet 500 mg PO Q12H 7 Days Qty: 14 0RF tamsulosin 0.4 mg capsule 0.4 mg PO BEDTIME Qty: 30 0RF cefpodoxime 200 mg tablet 200 mg PO BID 10 Days Qty: 20 0RF Rx Instructions: must administer with a meal/food Referrals: Stanton Mas MD [Primary Care Provider] - Stand Alone Forms: Patient Portal/API ED Sign-out <Madeline Sharp DO - Last Filed: 07/25/23 19:53> Cosign ED Attending Coskarinaature Attestation: I was immediately available in the department for consultation.
--- NOTE | 2023-07-25 11:29 | DI.CT.S_ITS ---
PROCEDURE: CT ABDOMEN PELVIS W CON INDICATIONS: ?nephrolithiasis TECHNIQUE: After the administration of intravenous contrast, axial sections acquired from the lung bases to the pubic symphysis. Coronal and sagittal reformats were performed. For radiation dose reduction, the following was used: automated exposure control, adjustment of mA and/or kV according to patient size. COMPARISON: None. FINDINGS: Image quality: Diagnostic. Lower Chest: No significant findings. ABDOMEN: Liver: No solid mass. Gallbladder: Absent. Biliary ducts: No biliary dilation. Pancreas: No ductal dilation. Spleen: Size is within normal limits. Adrenal Glands: No adrenal nodules. Kidneys and Ureters: Obstructing 5-6 mm stone (396 Hounsfield unit) in the proximal right ureter, resulting in moderate hydronephrosis and mild kidney edema. Small burden of left-sided nonobstructing nephrolithiasis, largest measuring 8 mm. Stomach and Bowel: Normal colonic caliber, without significant wall thickening. Peritoneum: No abnormal intraperitoneal fluid. No free air. Ventral Wall: No significant ventral hernia. Abdominal Nodes: No retroperitoneal or mesenteric adenopathy by size criteria. Vessels: Aorta and inferior vena cava are normal in size. PELVIS: Pelvic Organs: Unremarkable. Bladder: No bladder wall thickening, accounting for underdistention. Pelvic Nodes: No enlarged lymph nodes. Miscellaneous: No inguinal hernias are seen. Bones: No aggressive osseous abnormality. IMPRESSION: Obstructing 5-6 mm stone in the proximal right ureter, resulting in moderate hydronephrosis. Dictated by: Adriano Nicholas M.D. on 07/25/2023 at 13:47 Approved by: Adriano Nicholas M.D. on 07/25/2023 at 13:49
[2023-07-25 12:11] VITALS: BP 123/53; PULSE 65; RESP 16; O2SAT 98
[2023-07-25 12:25] LABS: Add Manual Diff / Slide Review NO; Basophils Absolute Auto 0 /uL (0-100); Basophils Percent Auto 0.5 % (0-2); Eosinophils Absolute Auto 100 /uL (0-450); Eosinophils Percent Auto 1.6 % (2-4); Hematocrit 38.9 % (36-46); Hemoglobin 13.1 g/dL (12.0-16.0); Lymphocytes Absolute Auto 2400 /uL (1100-4500); Lymphocytes Percent Auto 30.2 % (25-40); Mean Corpuscular HGB Conc 33.6 % (30-36); Mean Corpuscular Hemoglobin 30.2 PG (26-34); Monocytes Absolute Auto 700 /uL (0-900); Neutrophils Absolute Auto 4600 /uL (1500-7000); Neutrophils Percent Auto 58.7 % (50-75); Platelet Count 177 X10^3/uL (150-400); Red Blood Cell Count 4.32 X10^6/uL (4.0-5.2); Red Cell Distribution Width 13.6 % (11.6-14.8); White Blood Cell Count 7.8 X10^3/uL (4.5-11.0)
[2023-07-25 12:34] LABS: Alanine Aminotransferase 16 IU/L (<35); Albumin 4.1 g/dL (3.5-5.0); Albumin Globulin Ratio 1.2 (1.0-2.8); Alkaline Phosphatase 59 U/L (38-126); Aspartate Aminotransferase 24 IU/L (14-36); BUN Creatinine Ratio 19.2 (6-22); Bilirubin Total 0.5 mg/dL (0.2-1.3); Blood Urea Nitrogen 19 mg/dL (7-17); Calcium 9.3 mg/dL (8.4-10.2); Carbon Dioxide 28 mmol/L (22-32); Chloride 108 mmol/L (98-107); Estimated Glomerular Filt Rate > 60 mL/min (>60); Globulin 3.5 g/dL (1.7-4.1); Glucose 86 mg/dL (80-110); HEMOLYSIS < 15 (0-50); Lactate (Lactic Acid) 0.9 mmol/L (0.7-2.1); Lipase 47 U/L (23-300); Sodium 140 mmol/L (137-145); Total Protein 7.6 g/dL (6.3-8.2)
[2023-07-25 14:08] VITALS: BP 144/67; PULSE 65; RESP 18; O2SAT 99
--- NOTE | 2023-07-25 14:17 | DI.RAD.S_ITS ---
PROCEDURE: XR KUB INDICATIONS: kidney stone TECHNIQUE: One view of the abdomen acquired. COMPARISON: [facility], CT, CT ABDOMEN PELVIS W CON, 07/25/2023, 12:55. FINDINGS: Surgical changes and devices: None. Bowel: Bowel gas pattern is normal. Soft tissues: No suspicious abdominal calcifications. Visualized solid organ contours appear normal in size. Moderate right hydronephrosis and right ureteral dilatation. High-grade narrowing of the distal right ureter secondary to a [address] seen [address] CT[address] No significant left hydronephrosis. Contrast within the collecting systems is present, obscuring intrarenal calculi. Bones: No suspicious bony lesions. IMPRESSION: 1. High-grade narrowing of distal right ureter secondary to distal right ureteral calculus, associated with moderate right hydronephrosis. Dictated by: Wilton Barnes M.D. on 07/25/2023 at 14:56 Approved by: Wilton Barnes M.D. on 07/25/2023 at 14:59
[2023-07-25] MEDS: CIPROFLOXACIN 400 MG/200 ML PIGGYBACK 200 MG IV (14:42)
[2023-07-25] MEDS: diphenhydrAMINE 50 MG/ML VIAL 25 MG IV (15:00)
--- NOTE | 2023-07-25 15:09 | PC.NURSE ---
Shortly after starting IV Cipro pt developed itching and redness around IV site. Cipro paused, NATALIYA Tang made aware, IV Benadryl ordered and administered.
[2023-07-25] MEDS: cefTRIAXone 1,000 MG in SODIUM CHLORIDE 0.9% 100 ML 200 MG IV (15:38)
[2023-07-25 15:54] VITALS: BP 142/65; PULSE 67; RESP 18; O2SAT 98
== END 2023-07-25 16:24 | disposition home or self-care (01) ==
PROVIDERS: Emergency Medicine; Emergency Provider Student in an Organized Health Care Education/Training Program; PCP Internal Medicine
DX: N20.0 Calculus of kidney (principal); N39.0 Urinary tract infection, site not specified
CPT/HCPCS: 36415; 74018; 74177; 80053; 81001; 83605; 83690; 85025; 87086; 96365; 96375; 99284; J0696; J0744; J1200; Q9967

== ENCOUNTER → 2023-07-28 08:18 | Outpatient (CLI) | payer MEDICARE, OTHER, SELFPAY ==
--- NOTE | 2023-07-28 08:22 | DI.RAD.S_ITS ---
PROCEDURE: XR KUB INDICATIONS: Kidney Stone TECHNIQUE: One view of the abdomen acquired. COMPARISON: [facility], CT, CT ABDOMEN PELVIS W CON, 07/25/2023, 12:55. [facility], CR, XR KUB, 07/25/2023, 14:38. FINDINGS: Surgical changes and devices: None. Bowel: Bowel gas pattern is normal. Soft tissues: 2 calcifications are present overlying the left it is noted a 3rd calcification was present on CT exam partially overlapping which may not be visible on current single AP view. renal shadow Visualized solid organ contours appear normal in size. Bones: No suspicious bony lesions. IMPRESSION: Calcifications overlying the left renal shadow as above. Dictated by: Leticia Mann M.D. on 07/28/2023 at 11:35 Approved by: Leticia Mann M.D. on 07/28/2023 at 11:38
== END ==
LOC: RAD 08:21
PROVIDERS: PCP Internal Medicine; Referring Provider Specialist; Visit Provider Specialist
DX: N20.0 Calculus of kidney (principal)
CPT/HCPCS: 74018

== ENCOUNTER → 2023-07-28 09:48 | Outpatient (CLI) | payer MEDICARE, OTHER, SELFPAY | PROVIDERS: PCP Internal Medicine; Visit Provider Specialist | DX: N20.0 Calculus of kidney (principal) | CPT/HCPCS: 87086 ==

== ENCOUNTER → 2023-07-28 14:53 | Outpatient (CLI) | payer MEDICARE, OTHER, SELFPAY ==
--- NOTE | 2023-07-28 | DI.CT.S_ITS ---
PROCEDURE: CT PEL WO CON INDICATIONS: Calculus of ureter TECHNIQUE: After the administration of oral contrast, 5 mm thick sections acquired from the iliac crests to the symphysis. 5 mm coronal and sagittal reformats were then performed. For radiation dose reduction, the following was used: automated exposure control, adjustment of mA and/or kV according to patient size. COMPARISON: 4 millimeter [facility], CT, CT ABDOMEN PELVIS W CON., 07/25/2023, 12:55 FINDINGS: Image quality: Diagnostic. PELVIS: Ureters: Persistent 3-4 millimeter stone within the proximal right ureter (series 2, image 2). Peritoneum and Bowel: Bowel loops demonstrate normal wall thickness and caliber. No free fluid or air. Pelvic Organs: No pelvic mass. Bladder: Normal wall thickness, accounting for underdistension. No perivesicular fat stranding. Pelvic Nodes: No enlarged lymph nodes. Miscellaneous: No inguinal hernias are seen. Partially visualized left-sided renal stones. Bones: Bilateral sacroiliitis. IMPRESSION: Persistent proximal right ureter stone measuring 4 millimeter. Bilateral sacroiliitis, which can be seen in the setting of other medical conditions, such as inflammatory bowel disease. Dictated by: Adriano Nicholas M.D. on 07/28/2023 at 16:38 Approved by: Adriano Nicholas M.D. on 07/28/2023 at 16:40
== END ==
PROVIDERS: PCP Internal Medicine; Referring Provider Specialist; Visit Provider Specialist
DX: N20.2 Calculus of kidney with calculus of ureter (principal); N23 Unspecified renal colic; M46.1 Sacroiliitis, not elsewhere classified
CPT/HCPCS: 72192; 74018; 81002; 87086; 99214

== ENCOUNTER 2023-08-01 09:03 | Day surgery (SDC) | payer MEDICARE, OTHER, SELFPAY ==
[2023-08-01] VITALS (8 sets, daily range): BP systolic 119–152; BP diastolic 60–81; PULSE 75–98; RESP 13–20; TEMP 36.8–36.9; O2SAT 92–97; BMI 32.8
--- NOTE | 2023-08-01 | DI.RAD.S_ITS ---
PROCEDURE: XR ABDOMEN 1V INDICATIONS: RT CYSTO TECHNIQUE: 1 intra-operative image acquired by the Urology service. COMPARISON: [facility], CR, XR KUB, 08/01/2023, 9:14. FINDINGS: Single spot fluoroscopic image is seen of the right abdomen. IMPRESSION: Fluoroscopy was utilized for intra procedural guidance. Approved by: Eliel Infante M.D. on 08/01/2023 at 16:07
--- NOTE | 2023-08-01 09:00 | DI.RAD.S_ITS ---
PROCEDURE: XR KUB INDICATIONS: Right ureteral calculus TECHNIQUE: One view of the abdomen acquired. COMPARISON: [facility], CT, CT PEL WO CON, 07/28/2023, 15:01. [facility], CR, XR KUB, 07/28/2023, 8:31. FINDINGS: Surgical changes and devices: Cholecystectomy clips. Bowel: Bowel gas pattern is normal. Soft tissues: No change in calcifications projecting over the left kidney. The patient's right ureteral calculus is not seen. Visualized solid organ contours appear normal in size. Bones: No suspicious bony lesions. IMPRESSION: Left renal calculi. Dictated by: Wilton Barnes M.D. on 08/01/2023 at 9:31 Approved by: Wilton Barnes M.D. on 08/01/2023 at 9:32
--- NOTE | 2023-08-01 09:44 | PM.PREOP ---
Pre-operative Note Interval Note History & Physical reviewed/Exam performed by Physician: Yes Changes to H&P: No
[2023-08-01] MEDS: LACTATED RINGERS 1,000 ML 21 ML IV (09:56)
[2023-08-01] MEDS: ACETAMINOPHEN IV 1,000 MG/100 ML VIAL 400 MG IV (09:59)
[2023-08-01] MEDS: CIPROFLOXACIN 400 MG/200 ML PIGGYBACK 200 MG IV (10:43)
--- NOTE | 2023-08-01 10:44 | SUR.OPER ---
Lithotomy on padded OR bed, head on pillow, arms secured on padded arm boards at <90 degrees abduction. Legs secured in padded yellow fins stirrups.
[2023-08-01] MEDS: iopamidoL 30 ML VIAL INTRAURETH (10:54)
--- NOTE | 2023-08-01 11:35 | PM.OP.1 ---
Operative Date/Time/Diagnoses Date of procedure: 08/01/23 Time of procedure: 11:25 Pre-op diagnosis: 1. Obstructing 5 x 6 mm right mid ureteral calculus. 2. History of right renal colic. 3. Left nephrolithiasis. Post-op diagnosis: same Procedure & Clinicians Procedure: 1. Cystoscopy right/retrograde pyelogram. 2. Cystoscopy/right ureteroscopic intrarenal laser lithotripsy. Same procedure as scheduled: Yes Indications: 1. 5 x 6 mm obstructing right mid ureteral calculus. 2. History of right renal colic. Surgeon: Joann Leger Click Yes if Unassisted: Yes Anesthesia Type: General Operative Notes Findings: 1. 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 2. Urethra-normal caliber and position. No mass, lesion, or discharge. 3. Bladder-normal ureteral orifices bilaterally. No stone, tumor, or diverticulum. 4. Right ureter-index calculus was visualized adjacent to the right transverse process of L3 upon retrograde pyelogram. And conducting the pyelogram the stone was mobilized proximally into the right renal collecting system. Closure Type: not applicable Specimen(s): none sent Estimated Blood Loss (mL): 0 Blood products transfused: none Procedure in detail: The patient was positioned supine and was administered general anesthesia. She was then repositioned in semi lithotomy in the lower abdomen, genitalia, groin and vaginal vault were prepped and draped in sterile fashion. The 22 [place] panendoscope was then passed the lower urinary tract with the findings as described above. An 8 [place] cone-tip catheter was then utilized to conduct a retrograde pyelogram with the findings and events as described above under findings. Next a 0.35 hybrid guidewire was advanced through the working channel of the scope and advanced in the right collecting system under direct and fluoroscopic guidance. A 12 [place] ureteral access sheath was then advanced over the hybrid guidewire under fluoroscopic guidance to the level of the proximal ureter. The internal obturator was then removed. The wire was left within the lumen of the sheath. The flexible ureteral scope was then prepared and advanced through the ureteral access sheath under direct and fluoroscopic guidance proximally. Careful inspection of the renal collecting system was undertaken. The index calculus was seen lying dependently in inferior and posterior calyx. A 150 micron laser fiber was requested. All operating room personnel and patient were fitted with laser safety eyewear. Laser lithotripsy was then conduct a with excellent subsequent stone comminution. The tiny fragments and particles were freely mobile and irrigate pressure was maintain 2 library circulation assistant hydrostatic clearance and migration of the tiny fragments and particles into the ureter. Next the ureteral access sheath and flexible ureteral scope were then removed. The panendoscope was read introduced into the bladder to drain the bladder contents before removing. The patient was then repositioned in supine, was awakened, transferred to [facility], and then transported to PACU in stable condition. Complications: none Post-operative Condition: stable Disposition: PACU Plan for aftercare: 1. Discharge home.
[2023-08-01] MEDS: OXYCODONE IR 5 MG TABLET PO (11:44)
[2023-08-01] MEDS: FUROSEMIDE 40 MG/4 ML VIAL 20 MG IV (11:46)
== END 2023-08-01 12:42 | disposition home or self-care (01) ==
PROVIDERS: PCP Internal Medicine; Referring Provider Specialist; Visit Provider Specialist
PROC: (CPT 52353; principal; 2023-08-01 10:45)
DX: N20.1 Calculus of ureter (principal)
CPT/HCPCS: 52353; 74018; 76000; C1771; J0136; J0330; J0744; J1100; J1940; J2405; J2704; J3010; Q9967

== ENCOUNTER → 2023-08-25 13:03 | Outpatient (CLI) | payer MEDICARE, OTHER, SELFPAY ==
[2023-08-25 16:43] LABS: Appearance Urine UA CLEAR; Bilirubin Urine UA NEGATIVE (NEGATIVE); Color Urine UA YELLOW; Glucose Urine UA NEGATIVE (Negative); Ketones Urine UA TRACE (NEGATIVE); Leukocyte Esterase Urine UA TRACE (NEGATIVE); Nitrite Urine UA NEGATIVE (Negative); Occult Blood Urine UA TRACE-INTACT (Negative); Protein Urine UA NEGATIVE (Negative); Specific Gravity Urine UA 1.015 (1.000-1.035); Urobilinogen Urine UA 0.2 E.U./dL (0.2)
[2023-08-25 17:17] LABS: RBC Urine 1-5/HPF (0-5/HPF); Urine Volume 10mL (spun); pH Urine UA 6.5 (4.5-8.0)
[2023-08-25 17:18] LABS: Bacteria Urine Moderate (10-30); Culture Indicated Urine Specimen Cultured; Hyaline Casts Urine 0-1/LPF; Squamous Epithelial Cell Urine 5-10 /HPF (0-5/HPF); WBC Urine 5-10/HPF (0-5/HPF)
== END ==
PROVIDERS: PCP Internal Medicine; Referring Provider Specialist; Visit Provider Specialist
DX: R31.9 Hematuria, unspecified (principal)
CPT/HCPCS: 81001; 87077; 87086

== ENCOUNTER → 2023-09-07 11:46 | Outpatient (CLI) | payer MEDICARE, OTHER, SELFPAY ==
--- NOTE | 2023-09-07 11:48 | DI.RAD.S_ITS ---
PROCEDURE: XR KUB INDICATIONS: Right ESWL TECHNIQUE: One view of the abdomen acquired. COMPARISON: [facility], CR, XR ABDOMEN 1V, 08/01/2023, 10:53. [facility], CT, CT ABDOMEN PELVIS W CON, 07/25/2023, 12:55. [facility], CR, XR KUB, 08/01/2023, 9:14. [facility], CR, XR KUB, 07/28/2023, 8:31. FINDINGS: Surgical changes and devices: None. Bowel: Bowel gas pattern is normal. Soft tissues: Several calcifications projecting over the left flank again noted. One of the stones measuring approximately 1-2 cm has moved medially since prior x-ray abdomen dated 08/01/2023. Visualized solid organ contours appear normal in size. Bones: No suspicious bony lesions. IMPRESSION: One of the 1-2 cm left renal stones has moved more medially since 08/01/2023; this could mean it is in or close to the collecting system or ureter Dictated by: Bradley Abdi M.D. on 09/07/2023 at 13:04 Approved by: Bradley Abdi M.D. on 09/07/2023 at 13:41
== END ==
PROVIDERS: PCP Internal Medicine; Referring Provider Specialist; Visit Provider Specialist
DX: N20.0 Calculus of kidney (principal)
CPT/HCPCS: 74018

== ENCOUNTER → 2023-09-08 09:28 | Outpatient (CLI) | payer MEDICARE, OTHER, SELFPAY | PROVIDERS: PCP Internal Medicine; Visit Provider Specialist | DX: N20.0 Calculus of kidney (principal); R39.9 Unspecified symptoms and signs involving the genitourinary system; Z87.442 Personal history of urinary calculi | CPT/HCPCS: 81002; 87086; 99215 ==

== ENCOUNTER 2023-09-09 07:55 | Day surgery (SDC) | payer MEDICARE, OTHER, SELFPAY ==
[2023-09-09] VITALS (7 sets, daily range): BP systolic 121–146; BP diastolic 56–74; PULSE 60–76; RESP 12–97; TEMP 36.3–36.7; O2SAT 9–100; BMI 32.8
--- NOTE | 2023-09-09 08:24 | PM.PREOP ---
Pre-operative Note Interval Note History & Physical reviewed/Exam performed by Physician: Yes Changes to H&P: No
[2023-09-09] MEDS: LACTATED RINGERS 1,000 ML 21 ML IV (08:30)
--- NOTE | 2023-09-09 09:11 | SUR.OPER ---
Supine on ESWL bed, head on pillow, arms padded and tucked at sides, legs uncrossed, pad under legs.
--- NOTE | 2023-09-09 09:50 | PM.OP.1 ---
Operative Date/Time/Diagnoses Date of procedure: 09/09/23 Time of procedure: 09:50 Pre-op diagnosis: 1. Left UPJ calculus and left renal calculi. 2. Hematuria Post-op diagnosis: same Procedure & Clinicians Procedure: 1. Left extracorporeal shockwave lithotripsy (maximal power level 7.5 x 2500 shocks). Same procedure as scheduled: Yes Indications: 1. Left UPJ calculus and left renal calculi. 2. Hematuria Surgeon: Joann Leger Click Yes if Unassisted: Yes Anesthesia Type: General Operative Notes Findings: Index calculi unchanged in position verses most recent preoperative plain film imaging. There is a dominant calculus unchanged in position in the approximate location of the left ureteropelvic junction. A 2nd calculus, a bit smaller, seen near the upper pole collecting system. Unchanged in position on recent imaging is a left lower pole calculus. This calculus was not treat today. Closure Type: not applicable Specimen(s): none sent Estimated Blood Loss (mL): 0 Blood products transfused: none Procedure in detail: Patient was positioned supine and administered general anesthesia. The above-described left UPJ calculus was then localized in the X, Y, and Z plane. Lithotripsy was then commenced at minimal power level for total of 200 shocks, at which point a 2 minute pause was conducted. Lithotripsy was then resumed and the power level gradually increased to 7.5. A total of 2000 shocks were delivered to this stone. There was radiographic evidence of treatment effect but no dispersion or linear change in the shadow. Attention was then directed towards the left upper pole index calculus. It was localized in the X, Y, and Z plane. Total 500 shocks were delivered to this calculus with excellent radiographic evidence of stone comminution. The treatment was halted at 2500 shocks. The patient was then awakened, transferred to [facility], then transported recovery awake and in stable condition. Complications: none Post-operative Condition: stable Disposition: PACU Plan for aftercare: Discharge home.
[2023-09-09] MEDS: ACETAMINOPHEN 325 MG TABLET 650 MG PO (10:24)
== END 2023-09-09 10:59 | disposition home or self-care (01) ==
PROVIDERS: PCP Internal Medicine; Referring Provider Specialist; Visit Provider Specialist
PROC: (CPT 50590; principal; 2023-09-09 09:15)
DX: N20.2 Calculus of kidney with calculus of ureter (principal)
CPT/HCPCS: 50590; J2250; J2704

== ENCOUNTER → 2023-10-03 11:28 | Outpatient (CLI) | payer MEDICARE, OTHER, SELFPAY ==
--- NOTE | 2023-10-03 11:31 | DI.RAD.S_ITS ---
PROCEDURE: XR KUB INDICATIONS: Kidney stones TECHNIQUE: One view of the abdomen acquired. COMPARISON: [facility], CR, XR KUB, 09/07/2023, 11:50. FINDINGS: Surgical changes and devices: Surgical clips are noted in gallbladder fossa. Bowel: Bowel gas pattern is nonobstructive. No gross free air. Soft tissues: Multiple left-sided abdominal calcifications are seen measures 7 mm, 7 mm, and 3 mm in size. No gross right-sided abdominal calcifications are noted. Small phleboliths are seen in lower pelvis. Visualized solid organ contours appear normal in size. Bones: No suspicious bony lesions. IMPRESSION: Suggestion of left-sided sub cm renal calculi. No gross right-sided renal calculi are seen. No gross free air. Dictated by: Arnulfo Gomez M.D. on 10/03/2023 at 13:03 Approved by: Arnulfo Gomez M.D. on 10/03/2023 at 13:04
== END ==
PROVIDERS: PCP Internal Medicine; Referring Provider Specialist; Visit Provider Specialist
DX: N20.0 Calculus of kidney (principal); N23 Unspecified renal colic; N20.1 Calculus of ureter
CPT/HCPCS: 74018

== ENCOUNTER → 2023-10-04 10:13 | Outpatient (CLI) | payer MEDICARE, OTHER, SELFPAY ==
[2023-10-10 18:08] LABS: Ca oxalate dihydrate 40 % (.); Ca oxalate monohydr 55 % (.); Hydroxyapatite 5 % (.); Size 2x1 mm (.)
== END ==
PROVIDERS: PCP Internal Medicine; Visit Provider Specialist
DX: N20.0 Calculus of kidney (principal); Z87.442 Personal history of urinary calculi
CPT/HCPCS: 81002; 82365; 87086; 99215

== ENCOUNTER 2023-10-14 06:31 | Day surgery (SDC) | payer MEDICARE, OTHER, SELFPAY ==
[2023-10-06 09:06] VITALS: BMI 32.8
[2023-10-14] VITALS (8 sets, daily range): BP systolic 108–130; BP diastolic 43–74; PULSE 69–82; RESP 10–21; TEMP 36.6–36.9; O2SAT 95–100; BMI 32.8
--- NOTE | 2023-10-14 06:00 | DI.RAD.S_ITS ---
PROCEDURE: XR KUB INDICATIONS: Left nephrolithiasis TECHNIQUE: One view of the abdomen acquired. COMPARISON: [facility], CR, XR KUB, 10/03/2023, 10:54. FINDINGS: Surgical changes and devices: Surgical clips are noted in gallbladder fossa. Bowel: Bowel gas pattern is nonobstructive. Moderate fecal stasis throughout the colon is seen. Soft tissues: 2 calcifications are seen projecting in left renal fossa each measures 7 mm in size. This is not significantly changed from prior study. Likely phleboliths are noted in bilateral lower pelvis. This is also unchanged from previous study. Visualized solid organ contours appear normal in size. Bones: No suspicious bony lesions. IMPRESSION: Stable appearance of left-sided renal calculi and likely phleboliths in bilateral lower pelvis. Dictated by: Arnulfo Gomez M.D. on 10/14/2023 at 8:01 Approved by: Arnulfo Gomez M.D. on 10/14/2023 at 8:02
[2023-10-14] MEDS: LACTATED RINGERS 1,000 ML 21 ML IV (06:42)
--- NOTE | 2023-10-14 07:56 | SUR.OPER ---
Supine on padded OR bed, arms to the side on ESWL bed.
--- NOTE | 2023-10-14 08:49 | PM.PREOP ---
Pre-operative Note Interval Note History & Physical reviewed/Exam performed by Physician: Yes Changes to H&P: No
--- NOTE | 2023-10-14 08:49 | PM.OP.1 ---
Operative Date/Time/Diagnoses Date of procedure: 10/14/23 Time of procedure: 08:35 Pre-op diagnosis: Left nephrolithiasis Post-op diagnosis: same Procedure & Clinicians Procedure: 1. Second-stage left extracorporeal shockwave lithotripsy (maximal power level 7.0 x 2500 shocks). Same procedure as scheduled: Yes Indications: 1. Left nephrolithiasis Surgeon: Joann Leger Click Yes if Unassisted: Yes Anesthesia Type: General Operative Notes Findings: 1. Index calculi essentially unchanged in position compared to preoperative imaging. Closure Type: not applicable Specimen(s): none sent Estimated Blood Loss (mL): 0 Blood products transfused: none Procedure in detail: The patient was positioned supine in the above described renal calculi (x2) were localized in the X, Y, and Z plane. Initially the more superior positioned stone was localized. Lithotripsy was then commenced at minimal power level for 200 shocks. A 2 minute pause was then conducted. Lithotripsy was then resumed and the power level gradually increased to a maximum of 7.0. The individual stones and the fragments were relocalized as indicated throughout the case fluoroscopically and appropriate adjustments made to optimize treatment success and radiographic evidence stone comminution. Treatment was halted. The patient was then awakened, transferred to [facility], then transferred to recovery awake and in stable condition. Complications: none Post-operative Condition: stable Disposition: PACU Plan for aftercare: Discharge home.
[2023-10-14] MEDS: FUROSEMIDE 40 MG/4 ML VIAL 20 MG IV (08:58)
[2023-10-14] MEDS: ACETAMINOPHEN 325 MG TABLET 975 MG PO (09:05)
--- NOTE | 2023-10-14 09:22 | SUR.PHASEII ---
urine strained - dark burgandy without sediment
== END 2023-10-14 09:21 | disposition home or self-care (01) ==
PROVIDERS: PCP Internal Medicine; Referring Provider Specialist; Visit Provider Specialist
PROC: (CPT 50590; principal; 2023-10-14 07:45)
DX: N20.0 Calculus of kidney (principal)
CPT/HCPCS: 50590; 74018; J1100; J1940; J2704; J3010

== ENCOUNTER → 2023-10-18 11:49 | Outpatient (CLI) | payer MEDICARE, OTHER, SELFPAY | PROVIDERS: PCP Internal Medicine; Visit Provider Specialist | DX: Z87.442 Personal history of urinary calculi (principal) | CPT/HCPCS: 87086 ==

== ENCOUNTER → 2023-10-18 12:05 | Outpatient (CLI) | payer MEDICARE, OTHER, SELFPAY ==
--- NOTE | 2023-10-18 12:07 | DI.RAD.S_ITS ---
PROCEDURE: XR KUB INDICATIONS: Kidney stones TECHNIQUE: One view of the abdomen acquired. COMPARISON: [facility], CT, CT PEL WO CON, 07/28/2023, 15:01. [facility], CR, XR KUB, 10/14/2023, 6:38. [facility], CR, XR KUB, 10/03/2023, 10:54. FINDINGS: Surgical changes and devices: Cholecystectomy clips. Bowel: Bowel gas pattern is normal. Soft tissues: Small nonobstructing left kidney stones x2 are unchanged. No suspicious abdominal calcifications. Visualized solid organ contours appear normal in size. Bones: No suspicious bony lesions. IMPRESSION: Small nonobstructing left kidney stones x2 are unchanged. If clinically indicated consider CT KUB. Dictated by: Adolfo Anderson M.D. on 10/18/2023 at 17:43 Approved by: Adolfo Anderson M.D. on 10/18/2023 at 17:54
== END ==
PROVIDERS: PCP Internal Medicine; Referring Provider Specialist; Visit Provider Specialist
DX: N20.0 Calculus of kidney (principal); Z87.442 Personal history of urinary calculi
CPT/HCPCS: 74018; 87086

== ENCOUNTER → 2023-12-06 11:32 | Outpatient (CLI) | payer MEDICARE, OTHER, SELFPAY ==
--- NOTE | 2023-12-06 11:34 | DI.RAD.S_ITS ---
PROCEDURE: XR KUB INDICATIONS: left kidney stone TECHNIQUE: One view of the abdomen acquired. COMPARISON: [facility], CR, XR KUB, 10/18/2023, 12:25. [facility], CR, XR KUB, 10/14/2023, 6:38. FINDINGS: Surgical changes and devices: None. Bowel: Moderate to large fecal loading. Soft tissues: Possible left lower pole small renal calculus is less well seen on today's study. There may be of right 6 millimeter renal calculus, versus overlapping stool. Cholecystectomy clips. Pelvic calcifications are probably phleboliths, indeterminate. Bones: Degenerative changes. IMPRESSION: Possible left lower pole small renal stone is less conspicuous compared to September 2023. A possible right renal stone is seen, versus overlapping stool. Consider CT KUB for more definitive evaluation. Dictated by: Jovon Hanley M.D. on 12/06/2023 at 14:20 Approved by: Jovon Hanley M.D. on 12/06/2023 at 14:22
== END ==
PROVIDERS: PCP Internal Medicine; Referring Provider Specialist; Visit Provider Specialist
DX: N20.0 Calculus of kidney (principal)
CPT/HCPCS: 74018

== ENCOUNTER → 2023-12-07 10:20 | Outpatient (CLI) | payer MEDICARE, OTHER, SELFPAY | PROVIDERS: PCP Internal Medicine; Visit Provider Specialist | DX: N20.0 Calculus of kidney (principal); Z87.442 Personal history of urinary calculi | CPT/HCPCS: 81002; 87086; 99215 ==

== ENCOUNTER → 2024-03-02 13:28 | Outpatient (CLI) | payer MEDICARE, OTHER, SELFPAY | PROVIDERS: PCP Internal Medicine; Visit Provider Urology | DX: R39.9 Unspecified symptoms and signs involving the genitourinary system (principal) | CPT/HCPCS: 87086 ==

== ENCOUNTER 2024-03-25 11:36 | Emergency (ER) | payer MEDICARE, OTHER, SELFPAY ==
[2024-03-25 11:41] VITALS: BP 150/68; PULSE 67; RESP 18; TEMP 36.1; O2SAT 98; BMI 32.1
[2024-03-25 12:10] LABS: Appearance Urine UA CLOUDY; Bilirubin Urine UA NEGATIVE (NEGATIVE); Color Urine UA YELLOW; Glucose Urine UA NEGATIVE (Negative); Ketones Urine UA NEGATIVE (NEGATIVE); Leukocyte Esterase Urine UA TRACE (NEGATIVE); Nitrite Urine UA NEGATIVE (Negative); Occult Blood Urine UA 3+ (Negative); Protein Urine UA TRACE (Negative); Specific Gravity Urine UA 1.025 (1.000-1.035); Urobilinogen Urine UA 0.2 E.U./dL (0.2)
[2024-03-25 12:11] LABS: pH Urine UA 5.5 (4.5-8.0)
[2024-03-25 12:16] LABS: Bacteria Urine Few (2-10); RBC Urine 30-100/HPF (0-5/HPF); Urine Volume 10mL (spun); WBC Urine 1-5/HPF (0-5/HPF)
[2024-03-25 12:17] LABS: Amorphous Sediment Urine 2+
[2024-03-25 12:18] LABS: Culture Indicated Urine Specimen Cultured; Mucus Urine 1+ (Negative); Squamous Epithelial Cell Urine 0-1 /HPF (0-5/HPF)
--- NOTE | 2024-03-25 12:38 | DI.CT.S_ITS ---
PROCEDURE: CT ABDOMEN PELVIS WO CON INDICATIONS: Flank pain, hematuria, history of STONES TECHNIQUE: Axial sections were acquired from the lung bases to the pubic symphysis. Coronal and sagittal reformats were performed. For radiation dose reduction, the following was used: automated exposure control, adjustment of mA and/or kV according to patient size. COMPARISON: None. FINDINGS: Lower thorax: The lung bases are clear. Heart size normal. No hiatal hernia. Liver: Normal in size and attenuation. No contour deformity present. Biliary system: Cholecystectomy. No intra or extrahepatic bile duct dilation. Pancreas: Unremarkable without mass or inflammation evident. Spleen: The spleen is enlarged at 13.1 cm. No intrinsic mass lesion. Adrenals: Normal morphology and density. Reproductive system: Unremarkable as visualized. Urinary system: 4 mm calculus at the right ureteropelvic junction results in mild right hydronephrosis. Additional smaller nonobstructive calculi present. No calculi on the left. Gastrointestinal system: The bowel is unremarkable without evidence of bowel obstruction or inflammation. The stomach appears unremarkable. Appendix: No findings to suggest acute appendicitis. Peritoneal spaces: No mesenteric or retroperitoneal adenopathy. No free air. No free fluid. Vasculature: The IVC, aorta and iliac vasculature are unremarkable. Abdominal wall: Abdominal wall intact without evidence of ventral or inguinal hernias. Musculoskeletal: Normal bone mineralization. No acute fractures. IMPRESSION: Mild right hydronephrosis associated with 4 mm calculus at the right ureteropelvic junction. Additional right nonobstructing calculi Approved by: Baldo Xie M.D. on 03/25/2024 at 13:58
[2024-03-25 13:35] LABS: Add Manual Diff / Slide Review NO; Basophils Absolute Auto 100 /uL (0-100); Basophils Percent Auto 0.7 % (0-2); Eosinophils Absolute Auto 300 /uL (0-450); Eosinophils Percent Auto 2.6 % (2-4); Hemoglobin 12.8 g/dL (12.0-16.0); Lymphocytes Absolute Auto 3800 /uL (1100-4500); Mean Corpuscular HGB Conc 33.6 % (30-36); Mean Corpuscular Hemoglobin 30.3 PG (26-34); Monocytes Absolute Auto 1200 /uL (0-900); Monocytes Percent Auto 10.1 % (3-14); Neutrophils Absolute Auto 6100 /uL (1500-7000); Neutrophils Percent Auto 53.6 % (50-75); Platelet Count 256 X10^3/uL (150-400); Red Blood Cell Count 4.22 X10^6/uL (4.0-5.2); Red Cell Distribution Width 13.4 % (11.6-14.8); White Blood Cell Count 11.4 X10^3/uL (4.5-11.0)
[2024-03-25 13:46] LABS: Alanine Aminotransferase 17 IU/L (<35); Albumin Globulin Ratio 1.2 (1.0-2.8); Alkaline Phosphatase 67 U/L (38-126); Aspartate Aminotransferase 24 IU/L (14-36); BUN Creatinine Ratio 22.2 (6-22); Bilirubin Total 0.4 mg/dL (0.2-1.3); Blood Urea Nitrogen 22 mg/dL (7-17); Calcium 9.3 mg/dL (8.4-10.2); Carbon Dioxide 26 mmol/L (22-32); Chloride 104 mmol/L (98-107); Estimated Glomerular Filt Rate > 60 mL/min (>60); Globulin 3.3 g/dL (1.7-4.1); Glucose 87 mg/dL (80-110); HEMOLYSIS < 15 (0-50); Potassium 4.1 mmol/L (3.4-5.1); Sodium 136 mmol/L (137-145); Total Protein 7.3 g/dL (6.3-8.2)
--- NOTE | 2024-03-25 14:46 | PC.NURSE ---
Pt frustrated that CT scan is not read yet. Pt asking if MD can read scan; pt educated that radiologist are trained in reading radiology reports. RN called CT to verify image was in que and they stated it was. Pt notified of this and the process of CT scans being read.
[2024-03-25 15:13] VITALS: BP 143/68; PULSE 63; RESP 16; TEMP 36.7; O2SAT 97
--- NOTE | 2024-03-25 15:16 | ED_ITS ---
HPI - Female Genitourinary <Jamil Leon PA-C - Last Filed: 03/25/24 15:30> General Chief complaint: Urogenital-Female Stated complaint: blood in urine, hx of kidney stones Time Seen by Provider: 03/25/24 12:38 Source: patient Mode of arrival: Family Vehicle History of Present Illness HPI Narrative: This patient is a 63-year-old female that presents today for hematuria that started approximately 2 days ago. She has a previous history of nephrolithiasis x3 which has required lithotripsy on at least 2 previous occasions. The patient is not sure why she continues to forearm kidney stones. The patient has a urologist already established. She denies night sweats, fever, chills, vomiting, diarrhea, abdominal pain, chest pain or shortness of breath. No treatments have been tried for this. The patient denies increased urinary frequency or dysuria. Related Data Home Medications Medication Instructions Recorded Confirmed aspirin 81 mg tablet,delayed 81 mg PO DAILY 07/28/23 03/02/24 release celecoxib 200 mg capsule 200 mg PO BID 07/28/23 03/02/24 gabapentin 600 mg tablet 600 mg PO DAILY 07/28/23 03/02/24 baclofen 10 mg tablet 10 mg PO BID 08/01/23 03/02/24 sertraline 100 mg tablet 100 mg PO DAILY 08/01/23 03/02/24 albuterol sulfate 90 mcg/actuation 1 inh inhalation Q4-6H PRN 09/08/23 03/02/24 breath activated powder inhaler Shortness Of Breath Or Wheezing atorvastatin 10 mg tablet 40 mg PO DAILY 09/08/23 03/02/24 topiramate 25 mg tablet (Topamax) 25 mg PO DAILY 09/08/23 03/02/24 cholecalciferol (vitamin D3) 10 10 mcg PO DAILY 10/04/23 03/02/24 mcg (400 unit) capsule morphine 100 mg capsule,extended 100 mg PO DAILY 10/04/23 03/02/24 release pellets multivitamin (Daily Multi-Vitamin 1 tab PO DAILY 10/04/23 03/02/24 tablet) primidone 50 mg tablet 50 mg PO BEDTIME 03/02/24 03/02/24 Previous Rx's Medication Instructions Recorded oxycodone 5 mg tablet 5 mg PO Q4H PRN pain #10 tabs 08/01/23 tamsulosin 0.4 mg capsule 0.4 mg PO QPM #90 caps 11/18/23 cefdinir 300 mg capsule 300 mg PO BID #14 caps 03/25/24 ketorolac 10 mg tablet 10 mg PO Q6H PRN pain #20 tabs 03/25/24 tamsulosin 0.4 mg capsule 0.8 mg (2 x 0.4 mg) PO DAILY #14 03/25/24 caps Allergies Allergy/AdvReac Type Severity Reaction Status Date / Time Penicillins Allergy Rash Verified 03/25/24 11:47 Review of Systems <Jamil Leon PA-C - Last Filed: 03/25/24 15:30> Review of Systems Narrative: General: See HPI : See HPI All other review of systems have been reviewed and are ultimately negative unless otherwise stated in the HPI. 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 Renal colic on right side Nephrolithiasis Right ureteral calculus delivery delivered Neurological disease High blood pressure Depression Arthritis Surgical History Hx of thymectomy (1974) History of bladder suspension procedure (1997) History of knee replacement History of cholecystectomy Family History Mother Blood disease Hearing impairment Hyperlipidemia Hypertension Migraine Son Cancer Father Coronary artery disease Hearing impairment Hypertension tobacco type: cigarettes alcohol intake frequency: holidays/special occasions only Substance Use Type: does not use Exam <TETE [place] Last Filed: 03/25/24 15:30> Initial Vital Signs Initial Vital Signs: Vital Signs Temperature 97.0 F L 03/25/24 11:41 Pulse Rate 67 03/25/24 11:41 Respiratory Rate 18 03/25/24 11:41 Blood Pressure 150/68 H 03/25/24 11:41 Pulse Oximetry 98 03/25/24 11:41 Oxygen Delivery Method Room Air 03/25/24 11:41 Const General: cooperative, healthy appearing, comfortable, well developed and well groomed [facility] Head: normal to inspection, normocephalic and atraumatic Ears: hearing grossly normal bilaterally and external ears normal Nose: external nose normal and nares normal Face and sinus: normal facial exam Mouth: oral mucosae normal, lip normal and tongue normal Throat: posterior oropharynx normal and tonsils normal Eyes General: Yes appearance normal, both eyes and all related structures Neck Neck: normal visual inspection, full ROM and no meningeal signs Resp Effort & Inspection: normal respiratory effort and able to speak in complete sentences Cardio Rate: regular rate Rhythm: regular rhythm Heart Sounds: S1 normal and S2 normal GI Inspection: normal to inspection Palpation: soft and no hepatosplenomegaly Auscultation: normal bowel sounds Back/Spine/Pelvis Back: normal to inspection Other: No CVA tenderness bilaterally Skin General: no rashes or lesions noted, elasticity normal and turgor normal Neuro General: patient alert, patient awake and patient oriented x3 Extrem General: normal to inspection and full ROM Psych Appearance: grossly normal and well kempt <Mary Linares DO - Last Filed: 03/26/24 07:38> Initial Vital Signs Initial Vital Signs: Vital Signs Temperature 97.0 F L 03/25/24 11:41 Pulse Rate 67 03/25/24 11:41 Respiratory Rate 18 03/25/24 11:41 Blood Pressure 150/68 H 03/25/24 11:41 Pulse Oximetry 98 03/25/24 11:41 Oxygen Delivery Method Room Air 03/25/24 11:41 Course <Jamil Leon PA-C - Last Filed: 03/25/24 15:30> Course Course Narrative: Patient was seen and examined. A urinalysis and labs as well as a CT scan of the abdomen and pelvis without contrast was ordered. Patient was notified of the positive findings and then prepped for discharge home. Orders Ordered: ED Orders 03/25/24 11:50 Urinalysis and Microscopic Stat Urine Culture Stat 03/25/24 12:38 CT abdomen pelvis wo con Stat 03/25/24 13:20 CBC Auto Diff [Complete Blood Count AUTO DIFF] Stat CMP [Comprehensive Metabolic Panel] Stat Lactate (Lactic Acid) Stat Vital Signs Vital signs: Vital Signs - 8 hr 03/25/24 11:41 10/06/24 15:13 Temperature 97.0 F L 98.1 F Pulse Rate 67 63 Respiratory Rate 18 16 Blood Pressure 150/68 H 143/68 H Pulse Oximetry 98 97 Oxygen Delivery Method Room Air Room Air <Mary Linares DO - Last Filed: 03/26/24 07:38> Orders Ordered: ED Orders 03/25/24 11:50 Urinalysis and Microscopic Stat Urine Culture Stat 03/25/24 12:38 CT abdomen pelvis wo con Stat 03/25/24 13:20 CBC Auto Diff [Complete Blood Count AUTO DIFF] Stat CMP [Comprehensive Metabolic Panel] Stat Lactate (Lactic Acid) Stat Vital Signs Vital signs: Vital Signs - 8 hr 03/25/24 11:41 03/25/24 15:13 Temperature 97.0 F L 98.1 F Pulse Rate 67 63 Respiratory Rate 18 16 Blood Pressure 150/68 H 143/68 H Pulse Oximetry 98 97 Oxygen Delivery Method Room Air Room Air MDM - Female Genitourinary <Jamil Leon PA-C - Last Filed: 03/25/24 15:30> Differential Diagnosis Differential diagnosis: Likely urinary tract infection, cystitis and other (Nephrolithiasis, obstructive uropathy, acute kidney injury, urinary tract infection, pyelonephritis, septic stone as well as others) Medical Records Attestation: I reviewed the patient's medical records. Lab Data Attestation: I reviewed the patient's lab results. 03/25/24 13:20 03/25/24 13:20 Labs: Lab Results 03/25/24 03/25/24 Range/Units 11:50 13:20 WBC 11.4 H (4.5-11.0) X10^3/uL RBC 4.22 (4.0-5.2) X10^6/uL Hgb 12.8 (12.0-16.0) g/dL Hct 38.0 (36-46) % MCV 90.0 (80-100) fL MCH 30.3 (26-34) PG MCHC 33.6 (30-36) % RDW 13.4 (11.6-14.8) % Plt Count 256 (150-400) X10^3/uL Neut % (Auto) 53.6 (50-75) % Lymph % (Auto) 33.0 (25-40) % King[place]isher % (Auto) 10.1 (3-14) % Eos % (Auto) 2.6 (2-4) % Baso % (Auto) 0.7 (0-2) % Neut # (Auto) 6100 (6449-4924) /uL Lymph # (Auto) 3800 (4677-4626) /uL [place] # (Auto) 1200 H (0-900) /uL Eos # (Auto) 300 (0-450) /uL Baso # (Auto) 100 (0-100) /uL Sodium 136 L (137-145) mmol/L Potassium 4.1 (3.4-5.1) mmol/L Chloride 104 (98-107) mmol/L Carbon Dioxide 26 (22-32) mmol/L BUN 22 H (7-17) mg/dL Creatinine 0.99 (0.52-1.04) mg/dL Estimated GFR > 60 (>60) mL/min BUN/Creatinine Ratio 22.2 H (6-22) Glucose 87 (80-110) mg/dL Lactate 1.0 (0.7-2.1) mmol/L Calcium 9.3 (8.4-10.2) mg/dL Total Bilirubin 0.4 (0.2-1.3) mg/dL AST 24 (14-36) IU/L ALT 17 (<35) IU/L Alkaline Phosphatase 67 (38-126) U/L Total Protein 7.3 (6.3-8.2) g/dL Albumin 4.0 (3.5-5.0) g/dL Globulin 3.3 (1.7-4.1) g/dL Albumin/Globulin Ratio 1.2 (1.0-2.8) Urine Color Yellow Urine Appearance Cloudy Urine pH 5.5 (4.5-8.0) Ur Specific Fletcher 1.025 (1.000-1.035) Urine Protein Trace H (Negative) Urine Glucose (UA) Negative (Negative) g/dL Urine Ketones Negative (NEGATIVE) Urine Occult Blood 3+ H (Negative) Urine Nitrate Negative (Negative) Urine Bilirubin Negative (NEGATIVE) Urine Urobilinogen 0.2 (0.2) E.U./dL Ur Leukocyte Esterase Trace H (NEGATIVE) Urine RBC 30-100/hpf H (0-5/HPF) Urine WBC 1-5/hpf (0-5/HPF) Ur Squamous Epith Cells 0-1 /hpf (0-5/HPF) Amorphous Sediment 2+ Urine Bacteria Few (2-10) H (None) Urine Mucus 1+ H (Negative) Ur Culture Indicated? Specimen cultured Vol Urine Centrifuged 10ml (spun) Imaging Data CT scan - abdomen/pelvis: Radiologist's Impression: According to the radiologist, there was a 4 mm stone at the UVJ and a smaller stone behind this. There is mild hydronephrosis noted, according to the radiologist. MDM Narrative Medical decision making narrative: At this time, the patient has mild obstructive hydronephrosis secondary to a 4 mm stone on the right at the UVJ. The patient has normal kidney function at this time. There is what appears to be, a small UTI noted as well. I will start her on cefdinir to cover her until the culture returns. I do not believe this is a septic stone. I also do not believe this is an acute kidney injury. The 4 mm stone should pass therefore, the patient will be increased from tamsulosin 0.4 mg to 0.8 mg daily for the next 7 days and prescribed a short course of ketorolac as well. The patient is tolerating clear fluids and is not nauseated at this time. She understands the treatment plan. There are no additional questions at the time of discharge and she will follow up as requested. <Mary Linares, - Last Filed: 03/26/24 07:38> Lab Data Labs: Lab Results 03/25/24 03/25/24 Range/Units 11:50 13:20 WBC 11.4 H (4.5-11.0) X10^3/uL RBC 4.22 (4.0-5.2) X10^6/uL Hgb 12.8 (12.0-16.0) g/dL Hct 38.0 (36-46) % MCV 90.0 (80-100) fL MCH 30.3 (26-34) PG MCHC 33.6 (30-36) % RDW 13.4 (11.6-14.8) % Plt Count 256 (150-400) X10^3/uL Neut % (Auto) 53.6 (50-75) % Lymph % (Auto) 33.0 (25-40) % Kingfisher % (Auto) 10.1 (3-14) % Eos % (Auto) 2.6 (2-4) % Baso % (Auto) 0.7 (0-2) % Neut # (Auto) 6100 (8187-1184) /uL Lymph # (Auto) 3800 (8037-4766) /uL [place] # (Auto) 1200 H (0-900) /uL Eos # (Auto) 300 (0-450) /uL Baso # (Auto) 100 (0-100) /uL Sodium 136 L (137-145) mmol/L Potassium 4.1 (3.4-5.1) mmol/L Chloride 104 (98-107) mmol/L Carbon Dioxide 26 (22-32) mmol/L BUN 22 H (7-17) mg/dL Creatinine 0.99 (0.52-1.04) mg/dL Estimated GFR > 60 (>60) mL/min BUN/Creatinine Ratio 22.2 H (6-22) Glucose 87 (80-110) mg/dL Lactate 1.0 (0.7-2.1) mmol/L Calcium 9.3 (8.4-10.2) mg/dL Total Bilirubin 0.4 (0.2-1.3) mg/dL AST 24 (14-36) IU/L ALT 17 (<35) IU/L Alkaline Phosphatase 67 (38-126) U/L Total Protein 7.3 (6.3-8.2) g/dL Albumin 4.0 (3.5-5.0) g/dL Globulin 3.3 (1.7-4.1) g/dL Albumin/Globulin Ratio 1.2 (1.0-2.8) Urine Color Yellow Urine Appearance Cloudy Urine pH 5.5 (4.5-8.0) Ur Specific Fletcher 1.025 (1.000-1.035) Urine Protein Trace H (Negative) Urine Glucose (UA) Negative (Negative) g/dL Urine Ketones Negative (NEGATIVE) Urine Occult Blood 3+ H (Negative) Urine Nitrate Negative (Negative) Urine Bilirubin Negative (NEGATIVE) Urine Urobilinogen 0.2 (0.2) E.U./dL Ur Leukocyte Esterase Trace H (NEGATIVE) Urine RBC 30-100/hpf H (0-5/HPF) Urine WBC 1-5/hpf (0-5/HPF) Ur Squamous Epith Cells 0-1 /hpf (0-5/HPF) Amorphous Sediment 2+ Urine Bacteria Few (2-10) H (None) Urine Mucus 1+ H (Negative) Ur Culture Indicated? Specimen cultured Vol Urine Centrifuged 10ml (spun) Discharge Plan Departure Patient Disposition: Home Clinical Impression: Right ureteral calculus Hematuria Qualifiers: Hematuria type: benign essential microscopic Qualified Code(s): R31.1 - Benign essential microscopic hematuria Instructions: DI for Kidney Stones Activity Restrictions/Additional Instructions: Increase clear fluid intake Start the new dose of Flomax today Contact your urologist tomorrow in regards to today's ER visit You have 1 kidney stone that he is noted to be 4 mm in size on the right and a smaller one behind it Return here for any new, emergent concerns or if you worsen Prescriptions: New tamsulosin 0.4 mg capsule 0.8 mg PO DAILY Qty: 14 0RF ketorolac 10 mg tablet 10 mg PO Q6H PRN (Reason: pain) Qty: 20 0RF Rx Instructions: maximum total duration of 5 days from all oral, intranasal, or parenteral formulations cefdinir 300 mg capsule 300 mg PO BID Qty: 14 0RF No Action tamsulosin 0.4 mg capsule 0.4 mg PO QPM Qty: 90 0RF sertraline 100 mg Tablet 100 mg PO DAILY baclofen 10 mg tablet 10 mg PO BID oxycodone 5 mg tablet 5 mg PO Q4H PRN (Reason: pain) Qty: 10 0RF morphine 100 mg capsule,extend.release pellets 100 mg PO DAILY cholecalciferol (vitamin D3) 10 mcg (400 unit) capsule 10 mcg PO DAILY multivitamin [Daily Multi-Vitamin] Tablet 1 tab PO DAILY celecoxib 200 mg capsule 200 mg PO BID gabapentin 600 mg tablet 600 mg PO DAILY aspirin 81 mg tablet,delayed release (DR/EC) 81 mg PO DAILY atorvastatin 10 mg tablet 40 mg PO DAILY topiramate [Topamax] 25 mg tablet 25 mg PO DAILY albuterol sulfate 90 mcg/actuation aerosol powdr breath activated 1 inh inhalation Q4-6H PRN (Reason: Shortness Of Breath Or Wheezing) primidone 50 mg tablet 50 mg PO BEDTIME Referrals: Stanton Mas MD [Primary Care Provider] - Stand Alone Forms: Patient Portal/API ED Sign-out <Mary Linares DO - Last Filed: 03/26/24 07:38> Cosign ED Attending Cosignature Attestation: I was available for consultation.
== END 2024-03-25 15:13 | disposition home or self-care (01) ==
PROVIDERS: Emergency Provider Physician Assistant; PCP Internal Medicine
DX: N20.1 Calculus of ureter (principal); R31.1 Benign essential microscopic hematuria; Z87.442 Personal history of urinary calculi
CPT/HCPCS: 74176; 80053; 81001; 83605; 85025; 87086; 99283; 99284

== ENCOUNTER → 2024-04-03 10:06 | Outpatient (CLI) | payer MEDICARE, OTHER, SELFPAY | PROVIDERS: PCP Internal Medicine; Visit Provider Urology | DX: R39.9 Unspecified symptoms and signs involving the genitourinary system (principal) | CPT/HCPCS: 87086 ==

== ENCOUNTER → 2024-08-01 11:24 | Outpatient (CLI) | payer MEDICARE, OTHER, SELFPAY | PROVIDERS: PCP Internal Medicine; Visit Provider Urology | DX: N20.1 Calculus of ureter (principal); K59.00 Constipation, unspecified; R39.9 Unspecified symptoms and signs involving the genitourinary system; Z87.442 Personal history of urinary calculi | CPT/HCPCS: 51798; 81002; 87086; 99214 ==

== ENCOUNTER 2024-08-18 10:51 | Emergency (ER) | payer MEDICARE, OTHER, SELFPAY ==
[2024-08-18] VITALS (8 sets, daily range): BP systolic 118–172; BP diastolic 60–85; PULSE 57–78; RESP 14; TEMP 36.6; O2SAT 93–100; BMI 33.9
--- NOTE | 2024-08-18 10:58 | PC.NURSE ---
Pt went to her car
[2024-08-18 11:44] LABS: RBC Urine 10-30/HPF (0-5/HPF); Urine Volume 10mL (spun); WBC Urine 5-10/HPF (0-5/HPF)
[2024-08-18 11:45] LABS: Bacteria Urine Moderate (10-30); Calcium Oxalate Crystals Urine Occasional; Culture Indicated Urine Specimen Cultured; Squamous Epithelial Cell Urine 1-5 /HPF (0-5/HPF)
--- NOTE | 2024-08-18 12:42 | ED_ITS ---
HPI - General Adult General Chief complaint: Urogenital-Female Stated complaint: Poss Kidney stone/passing blood Time Seen by Provider: 08/18/24 12:41 Mode of arrival: Ambulatory History of Present Illness HPI narrative: 63-year-old female with history of previous kidney stones and lithotripsy, last lithotripsy intervention about 6 months ago, having intermittent right flank pain, solid local urologist Dr. Cleary few days ago, was planned to have CT scan to evaluate right-sided kidney stones in follow up, now complains of right-sided back pain increased, with some urinary frequency, concerned about infection. No fevers or chills. No nausea or vomiting. History of penicillin allergy, has taken oral ciprofloxacin antibiotic before without problems. Related Data Home Medications Medication Instructions Recorded Confirmed aspirin 81 mg tablet,delayed 81 mg PO DAILY 07/28/23 08/01/24 release celecoxib 200 mg capsule 200 mg PO BID 07/28/23 08/01/24 gabapentin 600 mg tablet 600 mg PO DAILY 07/28/23 08/01/24 baclofen 10 mg tablet 10 mg PO BID 08/01/23 08/01/24 sertraline 100 mg tablet 100 mg PO DAILY 08/01/23 08/01/24 albuterol sulfate 90 mcg/actuation 1 inh inhalation Q4-6H PRN 09/08/23 08/01/24 breath activated powder inhaler Shortness Of Breath Or Wheezing atorvastatin 10 mg tablet 40 mg PO DAILY 09/08/23 08/01/24 topiramate 25 mg tablet (Topamax) 25 mg PO DAILY 09/08/23 08/01/24 cholecalciferol (vitamin D3) 10 10 mcg PO DAILY 10/04/23 08/01/24 mcg (400 unit) capsule morphine 100 mg capsule,extended 100 mg PO DAILY 10/04/23 08/01/24 release pellets multivitamin (Daily Multi-Vitamin 1 tab PO DAILY 10/04/23 08/01/24 tablet) primidone 50 mg tablet 50 mg PO BEDTIME 03/02/24 08/01/24 Previous Rx's Medication Instructions Recorded oxycodone 5 mg tablet 5 mg PO Q4H PRN pain #10 tabs 08/01/23 ketorolac 10 mg tablet 10 mg PO Q6H PRN pain #20 tabs 03/25/24 tamsulosin 0.4 mg capsule 0.8 mg (2 x 0.4 mg) PO QPM #180 07/31/24 caps ciprofloxacin HCl 500 mg tablet 500 mg PO BID 10 days #20 tabs 08/18/24 hydrocodone 5 mg-acetaminophen 325 1 tab PO Q6H PRN pain #14 tabs 08/18/24 mg tablet ondansetron 4 mg disintegrating 4 mg PO Q6H PRN nausea and 08/18/24 tablet vomiting #7 tabs Allergies Allergy/AdvReac Type Severity Reaction Status Date / Time Penicillins Allergy Rash Verified 08/18/24 10:59 Patient History Medical History S/P extracorporeal shock wave therapy (09/09/23) History of nephrolithiasis Left nephrolithiasis Myasthenia gravis 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 Renal colic on right side Nephrolithiasis Right ureteral calculus delivery delivered Neurological disease High blood pressure Depression Arthritis Surgical History Hx of thymectomy (1974) History of bladder suspension procedure (1997) History of knee replacement History of cholecystectomy Family History Mother Blood disease Hearing impairment Hyperlipidemia Hypertension Migraine Son Cancer Father Coronary artery disease Hearing impairment Hypertension Social History marital status: number of children: 3 household members: spouse Smoking Status: Current every day smoker Tobacco: How many years used: 40 alcohol intake: never caffeine: Yes Type(s) of exercise: none Smoking Status: Current every day smoker tobacco type: cigarettes alcohol intake frequency: holidays/special occasions only Exam Narrative Exam Narrative: GENERAL: Well-developed patient, in mild distress. HEAD: Atraumatic. Normocephalic. EYES: Pupils equal round and reactive. Extraocular motions intact. No scleral icterus. No injection or drainage. ENT: Nose without bleeding, purulent drainage. Throat without erythema, tonsillar hypertrophy or exudate. Airway patent. NECK: Trachea midline. Non tender CARDIOVASCULAR: Regular rate and rhythm without murmurs, gallops, or rubs. RESPIRATORY: Clear to auscultation. Breath sounds equal bilaterally. No wheezes, rales, or rhonchi. GASTROINTESTINAL: Abdomen soft, non-tender, nondistended. EXTREMITIES: No edema or joint tenderness. BACK: Nontender without deformity or crepitance. No flank tenderness. NEURO: AOx3. Motor functions grossly nonfocal SKIN: No rash or erythema of visible areas Initial Vital Signs Initial Vital Signs: Vital Signs Temperature 97.8 F 08/18/24 10:59 Pulse Rate 78 08/18/24 10:59 Respiratory Rate 14 08/18/24 10:59 Blood Pressure 172/77 H 08/18/24 10:59 Pulse Oximetry 100 08/18/24 10:59 Oxygen Delivery Method Room Air 08/18/24 10:59 Course Orders Ordered: ED Orders 08/18/24 11:02 Urine Culture Stat Urine Microscopic Stat 08/18/24 12:52 CT abdomen pelvis wo con Stat 08/18/24 13:20 CBC Auto Diff [Complete Blood Count AUTO DIFF] Stat CMP [Comprehensive Metabolic Panel] Stat Discontinued Medications Ciprofloxacin (Ciprofloxacin 250 Mg Tablet) 500 mg PO NOW ONE Stop: 08/18/24 12:53 Last Admin: 08/18/24 13:12 Dose: 500 mg Documented By: VONNIE Vital Signs Vital signs: Vital Signs - 8 hr 08/18/24 11:52 08/18/24 11:52 08/18/24 12:00 Pulse Rate 67 68 Blood Pressure 151/63 H Pulse Oximetry 95 94 08/18/24 12:01 08/18/24 12:01 08/18/24 13:42 Pulse Rate 64 64 Blood Pressure 127/60 Pulse Oximetry 93 100 08/18/24 13:43 08/18/24 13:43 08/18/24 14:00 Pulse Rate 63 Blood Pressure 132/61 118/85 Pulse Oximetry 100 08/18/24 14:00 08/18/24 14:30 08/18/24 14:30 Pulse Rate 57 L 59 L Blood Pressure 136/63 Pulse Oximetry 95 95 Medical Decision Making Lab Data Lab results reviewed: Yes I reviewed the patient's lab results. Lab results narrative: White blood cell count 8000, hemoglobin 13.2, platelets adequate. BUN 14 with creatinine 1.1, glucose 91. Electrolytes unremarkable, serum CO2 28 normal. Liver functions lipase normal. Urine shows moderate bacteria with positive leukocyte esterase and negative nitrite, urine culture requested per protocol. 08/18/24 13:20 08/18/24 13:20 Labs: Lab Results 08/18/24 08/18/24 Range/Units 11:02 13:20 WBC 8.0 (4.5-11.0) X10^3/uL RBC 4.28 (4.0-5.2) X10^6/uL Hgb 13.2 (12.0-16.0) g/dL Hct 38.8 (36-46) % MCV 90.7 (80-100) fL MCH 30.9 (26-34) PG MCHC 34.0 (30-36) % RDW 13.6 (11.6-14.8) % Plt Count 208 (150-400) X10^3/uL Neut % (Auto) 57.7 (50-75) % Lymph % (Auto) 31.1 (25-40) % [place]rack[place] % (Auto) 8.9 (3-14) % Eos % (Auto) 1.7 L (2-4) % Baso % (Auto) 0.6 (0-2) % Neut # (Auto) 4600 (7094-7101) /uL Lymph # (Auto) 2500 (1045-0866) /uL [place] # (Auto) 700 (0-900) /uL Eos # (Auto) 100 (0-450) /uL Baso # (Auto) 0 (0-100) /uL Sodium 138 (137-145) mmol/L Potassium 4.7 (3.4-5.1) mmol/L Chloride 105 (98-107) mmol/L Carbon Dioxide 28 (22-32) mmol/L BUN 14 (7-17) mg/dL Creatinine 1.11 H (0.52-1.04) mg/dL Estimated GFR 55 L (>60) mL/min BUN/Creatinine Ratio 12.6 (6-22) Glucose 91 (80-110) mg/dL Calcium 8.8 (8.4-10.2) mg/dL Total Bilirubin 0.4 (0.2-1.3) mg/dL AST 29 (14-36) IU/L ALT 21 (<35) IU/L Alkaline Phosphatase 63 (38-126) U/L Total Protein 7.2 (6.3-8.2) g/dL Albumin 4.1 (3.5-5.0) g/dL Globulin 3.1 (1.7-4.1) g/dL Albumin/Globulin Ratio 1.3 (1.0-2.8) Urine RBC 10-30/hpf H (0-5/HPF) Urine WBC 5-10/hpf H (0-5/HPF) Ur Squamous Epith Cells 1-5 /hpf (0-5/HPF) Calcium Oxalate Crystal Occasional H Urine Bacteria Moderate (10-30) H (None) Ur Culture Indicated? Specimen cultured Vol Urine Centrifuged 10ml (spun) Urine Dip Bedside Urine Glucose Negative Bedside Urine Bilirubin - Negative Bedside Urine Ketone - Negative Urine Specific [place] 1.010 Bedside Urine Occult Blood +++ Bedside Urine pH 7.0 Bedside Urine Protein + 30 Bedside Urine Urobilinogen - Negative Bedside Urine Nitrite - Negative Bedside Urine Leukocytes ++ 125 Esterase Point of care testing: Urine Dip Bedside Urine Glucose Negative Bedside Urine Bilirubin - Negative Bedside Urine Ketone - Negative Urine Specific [place] 1.010 Bedside Urine Occult Blood +++ Bedside Urine pH 7.0 Bedside Urine Protein + 30 Bedside Urine Urobilinogen - Negative Bedside Urine Nitrite - Negative Bedside Urine Leukocytes ++ [address] scan - abdomen/pelvis: Radiologist's Impression: Close Abdomen/Pelvis CT (Signed) Baldo Xie - 08/18/24 Launch?[place] [address] CT Scan Report Signed Patient: Terri Rowley MR#: [id number] : 1960 Acct:[id number] Age/Sex: 63 / F Date of Service: 08/18/24 Loc: ED Accession Number: [id number] Procedure: CT abdomen pelvis wo con Ordering Provider: Cheo Costa MD PROCEDURE: CT ABDOMEN PELVIS WO CON INDICATIONS: R flank pain, hx stones TECHNIQUE: Axial sections were acquired from the lung bases to the pubic symphysis. Coronal and sagittal reformats were performed. For radiation dose reduction, the following was used: automated exposure control, adjustment of mA and/or kV according to patient size. COMPARISON: [facility], CT, CT ABDOMEN PELVIS WO CON, 03/25/2024, 13:04. FINDINGS: Image quality: Cholecystectomy. No intra or extrahepatic bile duct dilation. Lower Chest: No significant findings. URINARY: Right Kidney: 4 mm calculus in the proximal right ureter results in moderate right hydronephrosis. Additional nonobstructing right renal calculi. No nonobstructing calculi on the left. Right Ureter: No hydroureter. Left Kidney: No stones or hydronephrosis. Left Ureter: No hydroureter. Bladder: Normal wall thickness. No stones. ABDOMEN: Liver: No contour-deforming solid mass. Gallbladder: Cholecystectomy. No intra or extrahepatic bile duct dilation. Biliary ducts: No biliary dilation. Pancreas: No ductal dilation. Spleen: Size is within normal limits. Adrenal Glands: No adrenal nodules. Stomach and Bowel: Normal colonic caliber, without significant wall thickening. Peritoneum: No abnormal intraperitoneal fluid. No free air. Ventral Wall: No hernia. Abdominal Nodes: No enlarged retroperitoneal or mesenteric lymph nodes. Vessels: Aorta and inferior vena cava are normal in size. PELVIS: Pelvic Organs: Unremarkable. Pelvic Nodes: Unremarkable. Miscellaneous: No inguinal hernias are seen. Bones: Unremarkable. IMPRESSION: Proximal 4 mm right ureteral calculus results in moderate right hydronephrosis. Approved by: Baldo Xie M.D. on 08/18/2024 at 12:46 MDM Narrative Medical decision making narrative: 63-year-old female with history of kidney stones and ongoing right-sided flank pain, awaiting outpatient CT, prior lithotripsy as recent as 6 months ago, recent clinic evaluation urology office last week, not taking any oral antibiotics subsequent to that visit, now having increased right-sided flank pain and some dysuria and frequency of urination. Afebrile, sirs screen negative. No CVA tenderness right or left. Anterior abdominal exam benign. Urinalysis suspicious for infection, oral ciprofloxacin. History of stones noted, patient prefers further workup, labs sent. CT abdomen and pelvis noncontrast study ordered. CT abdomen and pelvis noncontrast. Impressions: ?Proximal 4 mm right ureteral calculus results in moderate right hydronephrosis.? See radiology report. 1500, case discussed with [facility] on-call Dr. Delatorre, who feels patient can be treated with a trial of outpatient antibiotics at this point, with close follow up with your PCP on Tuesday and/or urologist on Tuesday. Return precautions. Patient comfortable with this plan. Return precautions discussed. Prescriptions for further antibiotics ciprofloxacin, ODT ondansetron for control of nausea, and hydrocodone/APAP for pain control sent to her pharmacy. Discharged home. Return precautions discussed. Discharge Plan Departure Patient Disposition: Home Clinical Impression: Left ureteral calculus, Urinary tract infection Instructions: DI for Kidney Stones, DI for Urinary Tract Infection (UTI) Activity Restrictions/Additional Instructions: History of previous kidney stones, left-sided flank discomfort, no fever on triage, no tenderness to palpation on the left flank area or anterior front abdomen region. Urine showed some inflammatory cells and red cells, with presence of moderate bacteria, urine culture was done by protocol, history of penicillin antibiotic allergies noted, oral ciprofloxacin antibiotic given. CT abdomen and pelvis showed presence of a 4 mm stone in the left proximal upper ureter. Vital signs stable. No fever here. Case was discussed with Urology at [facility] who was on-call Dr. Delatorre, who felt you could have a trial of outpatient treatment for now. But return if you have fevers or chills or weakness or nausea or vomiting or any other concerns, as you might require emergent ureteral stenting and/or stone removal procedure. For now try using the your antibiotic, drinking plenty of fluids, recheck on Tuesday in 2 days with your regular provider. Contact your urologist on Tuesday if possible as well. Return earlier to this/nearest emergency department for any change worsening symptoms or any concerns prior. Prescriptions: New ciprofloxacin HCl 500 mg tablet 500 mg PO BID 10 Days Qty: 20 0RF ondansetron 4 mg tablet,disintegrating 4 mg PO Q6H PRN (Reason: nausea and vomiting) Qty: 7 0RF hydrocodone-acetaminophen 5-325 mg tablet 1 tab PO Q6H PRN (Reason: pain) Qty: 14 0RF No Action tamsulosin 0.4 mg capsule 0.8 mg PO QPM Qty: 180 3RF sertraline 100 mg Tablet 100 mg PO DAILY baclofen 10 mg tablet 10 mg PO BID oxycodone 5 mg tablet 5 mg PO Q4H PRN (Reason: pain) Qty: 10 0RF ketorolac 10 mg tablet 10 mg PO Q6H PRN (Reason: pain) Qty: 20 0RF Rx Instructions: maximum total duration of 5 days from all oral, intranasal, or parenteral formulations morphine 100 mg capsule,extend.release pellets 100 mg PO DAILY cholecalciferol (vitamin D3) 10 mcg (400 unit) capsule 10 mcg PO DAILY multivitamin [Daily Multi-Vitamin] Tablet 1 tab PO DAILY celecoxib 200 mg capsule 200 mg PO BID gabapentin 600 mg tablet 600 mg PO DAILY aspirin 81 mg tablet,delayed release (DR/EC) 81 mg PO DAILY atorvastatin 10 mg tablet 40 mg PO DAILY topiramate [Topamax] 25 mg tablet 25 mg PO DAILY albuterol sulfate 90 mcg/actuation aerosol powdr breath activated 1 inh inhalation Q4-6H PRN (Reason: Shortness Of Breath Or Wheezing) primidone 50 mg tablet 50 mg PO BEDTIME Referrals: Stanton Mas MD [Primary Care Provider] - Stand Alone Forms: Patient Portal/API/Survey
--- NOTE | 2024-08-18 12:52 | DI.CT.S_ITS ---
PROCEDURE: CT ABDOMEN PELVIS WO CON INDICATIONS: R flank pain, hx stones TECHNIQUE: Axial sections were acquired from the lung bases to the pubic symphysis. Coronal and sagittal reformats were performed. For radiation dose reduction, the following was used: automated exposure control, adjustment of mA and/or kV according to patient size. COMPARISON: [facility], CT, CT ABDOMEN PELVIS WO CON, 03/25/2024, 13:04. FINDINGS: Image quality: Cholecystectomy. No intra or extrahepatic bile duct dilation. Lower Chest: No significant findings. URINARY: Right Kidney: 4 mm calculus in the proximal right ureter results in moderate right hydronephrosis. Additional nonobstructing right renal calculi. No nonobstructing calculi on the left. Right Ureter: No hydroureter. Left Kidney: No stones or hydronephrosis. Left Ureter: No hydroureter. Bladder: Normal wall thickness. No stones. ABDOMEN: Liver: No contour-deforming solid mass. Gallbladder: Cholecystectomy. No intra or extrahepatic bile duct dilation. Biliary ducts: No biliary dilation. Pancreas: No ductal dilation. Spleen: Size is within normal limits. Adrenal Glands: No adrenal nodules. Stomach and Bowel: Normal colonic caliber, without significant wall thickening. Peritoneum: No abnormal intraperitoneal fluid. No free air. Ventral Wall: No hernia. Abdominal Nodes: No enlarged retroperitoneal or mesenteric lymph nodes. Vessels: Aorta and inferior vena cava are normal in size. PELVIS: Pelvic Organs: Unremarkable. Pelvic Nodes: Unremarkable. Miscellaneous: No inguinal hernias are seen. Bones: Unremarkable. IMPRESSION: Proximal 4 mm right ureteral calculus results in moderate right hydronephrosis. Approved by: Baldo Xie M.D. on 08/18/2024 at 12:46
[2024-08-18] MEDS: CIPROFLOXACIN 250 MG TABLET 500 MG PO (13:12)
[2024-08-18 13:54] LABS: Alanine Aminotransferase 21 IU/L (<35); Albumin 4.1 g/dL (3.5-5.0); Albumin Globulin Ratio 1.3 (1.0-2.8); Alkaline Phosphatase 63 U/L (38-126); Aspartate Aminotransferase 29 IU/L (14-36); BUN Creatinine Ratio 12.6 (6-22); Bilirubin Total 0.4 mg/dL (0.2-1.3); Blood Urea Nitrogen 14 mg/dL (7-17); Calcium 8.8 mg/dL (8.4-10.2); Carbon Dioxide 28 mmol/L (22-32); Chloride 105 mmol/L (98-107); Estimated Glomerular Filt Rate 55 mL/min (>60); Globulin 3.1 g/dL (1.7-4.1); Glucose 91 mg/dL (80-110); HEMOLYSIS < 15 (0-50); Potassium 4.7 mmol/L (3.4-5.1); Sodium 138 mmol/L (137-145); Total Protein 7.2 g/dL (6.3-8.2)
[2024-08-18 14:05] LABS: Add Manual Diff / Slide Review NO; Basophils Absolute Auto 0 /uL (0-100); Basophils Percent Auto 0.6 % (0-2); Eosinophils Absolute Auto 100 /uL (0-450); Eosinophils Percent Auto 1.7 % (2-4); Hematocrit 38.8 % (36-46); Hemoglobin 13.2 g/dL (12.0-16.0); Lymphocytes Absolute Auto 2500 /uL (1100-4500); Lymphocytes Percent Auto 31.1 % (25-40); Mean Corpuscular Hemoglobin 30.9 PG (26-34); Mean Corpuscular Volume 90.7 fL (80-100); Monocytes Absolute Auto 700 /uL (0-900); Monocytes Percent Auto 8.9 % (3-14); Neutrophils Absolute Auto 4600 /uL (1500-7000); Neutrophils Percent Auto 57.7 % (50-75); Platelet Count 208 X10^3/uL (150-400); Red Blood Cell Count 4.28 X10^6/uL (4.0-5.2); Red Cell Distribution Width 13.6 % (11.6-14.8)
== END 2024-08-18 15:20 | disposition home or self-care (01) ==
PROVIDERS: Emergency Provider Emergency Medicine; PCP Internal Medicine
DX: N39.0 Urinary tract infection, site not specified (principal); N20.1 Calculus of ureter; Z87.442 Personal history of urinary calculi
CPT/HCPCS: 74176; 80053; 81003; 81015; 85025; 87086; 99283; 99284

== ENCOUNTER 2024-08-23 12:32 | Inpatient (IN) | payer MEDICARE, OTHER, SELFPAY ==
[2024-08-23] VITALS (15 sets, daily range): BP systolic 112–154; BP diastolic 54–68; PULSE 57–85; RESP 12–25; TEMP 36.8–36.9; O2SAT 95–99; BMI 33.9
--- NOTE | 2024-08-23 13:01 | EKG_ITS ---
[address] [address] Test Date: 2024-08-23 Pat Name: Terri Rowley Department: Room: Gender: Female Social Media Specialist: JOHNIE : 1960 Requested By: Order Number: [id number] Reading MD: Madan Argueta Measurements Intervals [place] Rate: 70 P: 66 DE: 162 QRS: 42 QRSD: 72 T: 19 QT: 402 QTc: 434 Interpretive Statements Normal sinus rhythm Low voltage QRS Electronically Signed On 08-23-2024 14:48:09 PST by Madan Argueta
--- NOTE | 2024-08-23 13:01 | DI.RAD.S_ITS ---
PROCEDURE: XR CHEST 1V INDICATIONS: Possible stroke TECHNIQUE: One view of the chest was acquired. COMPARISON: [facility], , XR CHEST 1V, 09/11/2022, 14:22. FINDINGS: Surgical changes and devices: Median sternotomy wires. Partially visualized ACDF hardware. Lungs and pleura: Lungs are clear. Elevation of the right hemidiaphragm. No pleural effusions or pneumothorax. Mediastinum: Mediastinal contours appear normal. Heart size is normal. Bones and chest wall: No suspicious bony lesions. Overlying soft tissues appear unremarkable. IMPRESSION: No acute cardiopulmonary abnormality is seen. Dictated by: Clint Bolaños M.D. on 08/23/2024 at 13:37 Approved by: Clint Bolaños M.D. on 08/23/2024 at 13:38
--- NOTE | 2024-08-23 13:07 | PC.NURSE ---
Verbal orders from Dr. Jasso at this time for lab work and EKG. No CT scan of head at this time.
[2024-08-23 13:09] LABS: Add Manual Diff / Slide Review NO; Basophils Absolute Auto 0 /uL (0-100); Basophils Percent Auto 0.3 % (0-2); Eosinophils Absolute Auto 100 /uL (0-450); Eosinophils Percent Auto 1.3 % (2-4); Hematocrit 34.6 % (36-46); Hemoglobin 11.8 g/dL (12.0-16.0); Lymphocytes Absolute Auto 2000 /uL (1100-4500); Lymphocytes Percent Auto 23.2 % (25-40); Mean Corpuscular Hemoglobin 30.8 PG (26-34); Mean Corpuscular Volume 90.6 fL (80-100); Monocytes Absolute Auto 800 /uL (0-900); Monocytes Percent Auto 9.3 % (3-14); Neutrophils Absolute Auto 5700 /uL (1500-7000); Neutrophils Percent Auto 65.9 % (50-75); Platelet Count 172 X10^3/uL (150-400); Red Blood Cell Count 3.82 X10^6/uL (4.0-5.2); Red Cell Distribution Width 13.6 % (11.6-14.8); White Blood Cell Count 8.7 X10^3/uL (4.5-11.0)
[2024-08-23 13:10] LABS: Prothrombin Time 11.4 SECONDS (9.4-12.5)
[2024-08-23 13:12] LABS: PTT Partial Thromboplastin Tim 31 SECONDS (25.1-36.5)
[2024-08-23 13:14] LABS: Alanine Aminotransferase 18 IU/L (<35); Albumin Globulin Ratio 1.3 (1.0-2.8); Alkaline Phosphatase 55 U/L (38-126); Aspartate Aminotransferase 27 IU/L (14-36); BUN Creatinine Ratio 11.2 (6-22); Bilirubin Total 0.4 mg/dL (0.2-1.3); Blood Urea Nitrogen 29 mg/dL (7-17); Calcium 8.4 mg/dL (8.4-10.2); Carbon Dioxide 25 mmol/L (22-32); Chloride 106 mmol/L (98-107); Creatine Kinase 104 U/L (30-135); Estimated Glomerular Filt Rate 20 mL/min (>60); Globulin 3.2 g/dL (1.7-4.1); Glucose 114 mg/dL (80-110); HEMOLYSIS < 15 (0-50); Potassium 4.5 mmol/L (3.4-5.1); Sodium 137 mmol/L (137-145); Total Protein 7.2 g/dL (6.3-8.2)
[2024-08-23 13:25] LABS: Troponin I < 0.012 ng/mL (0.01-0.034)
--- NOTE | 2024-08-23 15:11 | ED_ITS ---
HPI - General Adult General Chief complaint: Dizziness Stated complaint: rtrn pt, back px Time Seen by Provider: 08/23/24 13:14 Source: patient Mode of arrival: Ambulatory History of Present Illness HPI narrative: 63-year-old woman with a history of asthma, osteoarthritis, chronic pain, depression, diagnosed with a kidney stone on August 18 with infection started on Cipro with referral to Urology, patient has not been able to get hold of Urology to set up an appointment yet. She presents today with significant complaints of increasing dizziness, bilateral weakness, for wobbly? visual field, increased fatigue all she wants to do a sleep difficulty keeping her eyes open, unsteady gait notice today very dry mouth. She notes that she had severe pain on August 19 and that she presumed was her kidney stone moving, she then had single episode of hematuria and since then has been having difficulty fully emptying her bladder. Changing position does not seem to help completely. She has not describing fevers, chills or other viral symptoms. She states she has not changed any of her medications Related Data Home Medications Medication Instructions Recorded Confirmed aspirin 81 mg tablet,delayed 81 mg PO DAILY 07/28/23 08/01/24 release celecoxib 200 mg capsule 200 mg PO BID 07/28/23 08/01/24 gabapentin 600 mg tablet 600 mg PO DAILY 07/28/23 08/01/24 baclofen 10 mg tablet 10 mg PO BID 08/01/23 08/01/24 sertraline 100 mg tablet 100 mg PO DAILY 08/01/23 08/01/24 albuterol sulfate 90 mcg/actuation 1 inh inhalation Q4-6H PRN 09/08/23 08/01/24 breath activated powder inhaler Shortness Of Breath Or Wheezing atorvastatin 10 mg tablet 40 mg PO DAILY 09/08/23 08/01/24 topiramate 25 mg tablet (Topamax) 25 mg PO DAILY 09/08/23 08/01/24 cholecalciferol (vitamin D3) 10 10 mcg PO DAILY 10/04/23 08/01/24 mcg (400 unit) capsule morphine 100 mg capsule,extended 100 mg PO DAILY 10/04/23 08/01/24 release pellets multivitamin (Daily Multi-Vitamin 1 tab PO DAILY 10/04/23 08/01/24 tablet) primidone 50 mg tablet 50 mg PO BEDTIME 03/02/24 08/01/24 Previous Rx's Medication Instructions Recorded oxycodone 5 mg tablet 5 mg PO Q4H PRN pain #10 tabs 08/01/23 ketorolac 10 mg tablet 10 mg PO Q6H PRN pain #20 tabs 03/25/24 tamsulosin 0.4 mg capsule 0.8 mg (2 x 0.4 mg) PO QPM #180 07/31/24 caps ciprofloxacin HCl 500 mg tablet 500 mg PO BID 10 days #20 tabs 08/18/24 hydrocodone 5 mg-acetaminophen 325 1 tab PO Q6H PRN pain #14 tabs 08/18/24 mg tablet ondansetron 4 mg disintegrating 4 mg PO Q6H PRN nausea and 08/18/24 tablet vomiting #7 tabs Allergies Allergy/AdvReac Type Severity Reaction Status Date / Time Penicillins Allergy Rash Verified 08/18/24 10:59 Review of Systems Review of Systems Narrative: Pertinent positive and negative findings as per HPI Patient History Medical History S/P extracorporeal shock wave therapy (09/09/23) History of nephrolithiasis Left nephrolithiasis Myasthenia gravis 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 Renal colic on right side Nephrolithiasis Right ureteral calculus delivery delivered Neurological disease High blood pressure Depression Arthritis Surgical History Hx of thymectomy (1974) History of bladder suspension procedure (1997) History of knee replacement History of cholecystectomy Family History Mother Blood disease Hearing impairment Hyperlipidemia Hypertension Migraine Son Cancer Father Coronary artery disease Hearing impairment Hypertension Social History marital status: number of children: 3 household members: spouse Smoking Status: Current every day smoker Tobacco: How many years used: 40 alcohol intake: never caffeine: Yes Type(s) of exercise: none Smoking Status: Current every day smoker tobacco type: cigarettes alcohol intake frequency: holidays/special occasions only Exam Initial Vital Signs Initial Vital Signs: Vital Signs Temperature 98.5 F 08/23/24 12:53 Pulse Rate 75 08/23/24 12:53 Respiratory Rate 17 08/23/24 12:53 Blood Pressure 152/68 H 08/23/24 12:53 Pulse Oximetry 97 08/23/24 12:53 Oxygen Delivery Method Room Air 08/23/24 12:53 General: Fatigued, in no acute distress able to speak in complete sentences and cooperate fully with exam HEENT: Dry mucous membranes, bilaterally injected sclera, pupils and extra I am fluent symmetrical bilaterally Respiratory: Lungs are clear to auscultation, no wheezing no rales no rhonchi. Full and symmetrical air movement Cardiac: Regular rate and rhythm no murmurs no bruits Abdomen: Soft, nontender, good bowel tones, no flank pain Skin: Warm and dry, no rashes Neurologic: She seems globally slow, globally weak, no obvious localizing symptoms, diminished reflexes upper and lower extremities, no paresthesias, no facial droop, no visual field changes Extremities: No trauma, well perfused Psych: Cooperative, fatigued NIH=0 Course Orders Ordered: ED Orders 08/23/24 12:49 Complete Blood Count AUTO DIFF Stat Comprehensive Metabolic Panel Stat Magnesium Stat PTT Partial Thromboplastin Yrn Stat Prothrombin Time INR Stat Troponin & CK Cardiac Panel Stat 08/23/24 13:01 XR chest 1V Stat EKG-12 Lead Stat 08/23/24 14:58 Consult to Speech Therapy Evaluate & Treat 08/23/24 15:36 CT head/brain wo con Stat 08/23/24 16:10 Covid-19 + FLU A/B + RSV - PCR Stat 08/23/24 16:11 Urine Culture Stat Urine Drug Screen, Rapid Stat Urine Microscopic Stat Ondansetron HCl (Ondansetron 4 Mg/2 Ml Inj) 4 mg IV NOW PRN PRN Reason: Nausea And Vomiting Ondansetron HCl (Ondansetron 4 Mg Odt) 4 mg SL NOW PRN PRN Reason: Nausea And Vomiting Discontinued Medications Sodium Chloride (Normal Saline 0.9%) 1,000 mls @ 1,000 mls/hr IV BOLUS ONE Stop: 08/23/24 16:33 Last Admin: 08/23/24 16:09 Dose: 1,000 mls/hr Documented By: FADY Vital Signs Vital signs: Vital Signs - 8 hr 08/23/24 12:53 08/23/24 14:16 08/23/24 14:17 Temperature 98.5 F Pulse Rate 75 85 69 Respiratory Rate 17 Blood Pressure 152/68 H Pulse Oximetry 97 96 96 Oxygen Delivery Method Room Air 08/23/24 14:17 08/23/24 14:30 08/23/24 14:30 Temperature Pulse Rate 65 Respiratory Rate Blood Pressure 112/54 L 113/58 L Pulse Oximetry 98 Oxygen Delivery Method 08/23/24 15:00 08/23/24 15:00 08/23/24 15:45 Temperature Pulse Rate 58 L 74 Respiratory Rate 17 22 Blood Pressure 118/58 L Pulse Oximetry 96 96 Oxygen Delivery Method 08/23/24 15:46 08/23/24 15:46 08/23/24 16:00 Temperature Pulse Rate 69 61 Respiratory Rate 12 20 Blood Pressure 137/62 Pulse Oximetry 95 95 Oxygen Delivery Method 08/23/24 16:00 Temperature Pulse Rate Respiratory Rate Blood Pressure 139/63 Pulse Oximetry Oxygen Delivery Method Medical Decision Making Lab Data 08/23/24 12:49 08/23/24 12:49 Labs: Lab Results 08/23/24 08/23/24 08/23/24 Range/Units 12:49 16:10 16:11 WBC 8.7 (4.5-11.0) X10^3/uL RBC 3.82 L (4.0-5.2) X10^6/uL Hgb 11.8 L (12.0-16.0) g/dL Hct 34.6 L (36-46) % MCV 90.6 (80-100) fL MCH 30.8 (26-34) PG MCHC 34.0 (30-36) % RDW 13.6 (11.6-14.8) % Plt Count 172 (150-400) X10^3/uL Neut % (Auto) 65.9 (50-75) % Lymph % (Auto) 23.2 L (25-40) % [place] % (Auto) 9.3 (3-14) % Eos % (Auto) 1.3 L (2-4) % Baso % (Auto) 0.3 (0-2) % Neut # (Auto) 5700 (4792-9701) /uL Lymph # (Auto) 2000 (3913-3359) /uL [place] # (Auto) 800 (0-900) /uL Eos # (Auto) 100 (0-450) /uL Baso # (Auto) 0 (0-100) /uL PT 11.4 (9.4-12.5) SECONDS INR 1.0 (0.9-1.3) APTT 31 (25.1-36.5) SECONDS Sodium 137 (137-145) mmol/L Potassium 4.5 (3.4-5.1) mmol/L Chloride 106 (98-107) mmol/L Carbon Dioxide 25 (22-32) mmol/L BUN 29 H (7-17) mg/dL Creatinine 2.60 H (0.52-1.04) mg/dL Estimated GFR 20 L (>60) mL/min BUN/Creatinine Ratio 11.2 (6-22) Glucose 114 H (80-110) mg/dL Calcium 8.4 (8.4-10.2) mg/dL Magnesium 2.0 (1.6-2.3) mg/dL Total Bilirubin 0.4 (0.2-1.3) mg/dL AST 27 (14-36) IU/L ALT 18 (<35) IU/L Alkaline Phosphatase 55 (38-126) U/L Total Creatine Kinase 104 (30-135) U/L Troponin I < 0.012 (0.01-0.034) ng/mL Total Protein 7.2 (6.3-8.2) g/dL Albumin 4.0 (3.5-5.0) g/dL Globulin 3.2 (1.7-4.1) g/dL Albumin/Globulin Ratio 1.3 (1.0-2.8) Urine RBC 5-10/hpf H (0-5/HPF) Urine WBC 10-30/hpf H (0-5/HPF) Ur Squamous Epith Cells 1-5 /hpf (0-5/HPF) Calcium Oxalate Crystal Occasional H Urine Bacteria Many (>30) H (None) Urine Yeast 0-1/hpf (None) Ur Culture Indicated? Specimen cultured Vol Urine Centrifuged 10ml (spun) U Opiates 300ng/mL cut Positive H (Negative) Ur Oxycodone Screen Positive H (Negative) Urine Methadone Screen Negative (Negative) Ur Barbiturates Screen Negative (Negative) U Tricyclic Antidepress Negative (Negative) Ur Phencyclidine Scrn Negative (Negative) Ur Amphetamines Screen Negative (Negative) U Methamphetamines Scrn Negative (Negative) Ur MDMA Scrn (Ecstasy) Negative (Negative) U Benzodiazepines Scrn Negative (Negative) Urine Cocaine Screen Negative (Negative) U Marijuana (THC) Screen Negative (Negative) Urine pH Normal (Normal) Urine Specific [place] Normal (Normal) Ur Creatinine Normal (Normal) SARS-CoV-2 (PCR) Negative (Negative) Influenza A (RT-PCR) Flu a negative (NEGATIVE) Influenza B (RT-PCR) Flu b negative (NEGATIVE) RSV (PCR) Negative (Negative) Urine Dip Bedside Urine Glucose Negative Bedside Urine Bilirubin - Negative Bedside Urine Ketone - Negative Urine Specific [place] 1.020 Bedside Urine Occult Blood ++ Bedside Urine pH 6.0 Bedside Urine Protein - Negative Bedside Urine Urobilinogen - Negative Bedside Urine Nitrite - Negative Bedside Urine Leukocytes + 70 Esterase Point of care testing: Urine Dip Bedside Urine Glucose Negative Bedside Urine Bilirubin - Negative Bedside Urine Ketone - Negative Urine Specific [place] 1.020 Bedside Urine Occult Blood ++ Bedside Urine pH 6.0 Bedside Urine Protein - Negative Bedside Urine Urobilinogen - Negative Bedside Urine Nitrite - Negative Bedside Urine Leukocytes + [address] scan - abdomen/pelvis: Radiologist's Impression: PROCEDURE: CT ABDOMEN PELVIS WO CON INDICATIONS: R flank pain, hx stones TECHNIQUE: Axial sections were acquired from the lung bases to the pubic symphysis. Coronal and sagittal reformats were performed. For radiation dose reduction, the following was used: automated exposure control, adjustment of mA and/or kV according to patient size. COMPARISON: [facility], CT, CT ABDOMEN PELVIS WO CON, 03/25/2024, 13:04. FINDINGS: Image quality: Cholecystectomy. No intra or extrahepatic bile duct dilation. Lower Chest: No significant findings. URINARY: Right Kidney: 4 mm calculus in the proximal right ureter results in moderate right hydronephrosis. Additional nonobstructing right renal calculi. No nonobstructing calculi on the left. Right Ureter: No hydroureter. Left Kidney: No stones or hydronephrosis. Left Ureter: No hydroureter. Bladder: Normal wall thickness. No stones. ABDOMEN: Liver: No contour-deforming solid mass. Gallbladder: Cholecystectomy. No intra or extrahepatic bile duct dilation. Biliary ducts: No biliary dilation. Pancreas: No ductal dilation. Spleen: Size is within normal limits. Adrenal Glands: No adrenal nodules. Stomach and Bowel: Normal colonic caliber, without significant wall thickening. Peritoneum: No abnormal intraperitoneal fluid. No free air. Ventral Wall: No hernia. Abdominal Nodes: No enlarged retroperitoneal or mesenteric lymph nodes. Vessels: Aorta and inferior vena cava are normal in size. PELVIS: Pelvic Organs: Unremarkable. Pelvic Nodes: Unremarkable. Miscellaneous: No inguinal hernias are seen. Bones: Unremarkable. IMPRESSION: Proximal 4 mm right ureteral calculus results in moderate right hydronephrosis. Approved by: Baldo Xie M.D. on 08/18/2024 at 12:46 CT scan - head: Radiologist's Impression: PROCEDURE: CT HEAD/BRAIN WO CON INDICATIONS: altered mental status TECHNIQUE: Noncontrast 4.5 mm thick angled axial sections acquired from the foramen magnum to the vertex, with coronal and sagittal reformats. For radiation dose reduction, the following was used: automated exposure control, adjustment of mA and/or kV according to patient size. COMPARISON: None. FINDINGS: Image quality: Diagnostic. CSF spaces: Basal cisterns are patent. No extra-axial fluid collections. The ventricles are symmetric in size and shape. Brain: Empty sella is noted. No intracranial bleeds or masses. There is cerebral volume loss for age, with resultant ventricular and sulcal prominence. There are periventricular and deep white matter chronic small vessel ischemic changes. There is intracranial internal carotid artery atherosclerosis. Skull and face: Calvarium and visualized facial bones appear intact, without suspicious lesions. Sinuses: Visualized sinuses and mastoids are clear. IMPRESSION: No acute intracranial pathology. Dictated by: Clint Bolaños M.D. on 08/23/2024 at 16:02 MDM Narrative Medical decision making narrative: CC: Progressive global weakness, overall slowing and fatigue Complicating co-morbidities: Known right kidney stone, currently on Cipro (recent addition to other medications), chronic pain, polypharmacy Data collected from: patient, Medical records reviewed: ER note from August 18 with a ureteral calculus, infection and antibiotic prescription is reviewed Differential considered: Metabolic encephalopathy, adverse medication interactions, sepsis, significant electrolyte abnormalities or renal failure, bladder stone causing urinary obstruction, viral symptoms, not particularly concerned with stroke or sepsis currently Exam documented above, pertinent findings include: Patient appears globally weak and fatigued without obvious localizing symptoms Bladder scan shows 100 cc only Lab Test results independently reviewed as above. Pertinent findings: CBC shows slight anemia with H and H changing from August 18 to March 6th from 13.2-11.8 and 13. and 34.6 Chemistries show acute kidney injury with creatinine jumping from 1.1-2.6. Remainder of electrolytes are unremarkable Troponin is unremarkable Urine today is entirely unchanged if not even more bacteria compared to August 18 Urine culture from August 18 does not show an acute UTI, mixed Gram-positive donny only Independently reviewed EKG: EKG shows sinus rhythm at a rate of 70 we will ischemic changes, no widened QRS or peaked T-waves Imaging studies independently reviewed: Chest x-ray is unremarkable Renal ultrasound is pending at time of admission Consultations: Discussion with Dr. Argueta hospitalist service Treatments: IV fluid, Zofran Discussion: 63-year-old woman with acutely altered mental status and acute renal failure. Diagnosed with a kidney stone on August 18 concern for urinary tract infection however urine did not grow out an infection at that time. She was started on Cipro and symptoms have progressively worsened while she continues on Cipro. There was no sign of stroke, sepsis, potassium, sodium, calcium abnormalities. Patient feels that she passed the kidney stone that she had on the right side on either Tuesday or Tuesday and clinically she does not have continued flank pain. At this time I do not have a complete explanation for her acute neurologic change but it is concerning for an adverse reaction to Cipro. Patient will be admitted with a tentative diagnosis of UTI, acute kidney failure and acutely altered mental status. Discharge Plan Departure Patient Disposition: Admitted as Observation Clinical Impression: Acute kidney injury Urinary tract infection Qualifiers: Urinary tract infection type: site unspecified Hematuria presence: with hematuria Qualified Code(s): N39.0 - Urinary tract infection, site not specified ; R31.9 - Hematuria, unspecified Adverse reaction to drug Qualifiers: Encounter type: initial encounter Qualified Code(s): T50.905A - Adverse effect of unspecified drugs, medicaments and biological substances, initial encounter Altered mental status Qualifiers: Altered mental status type: unspecified Qualified Code(s): R41.82 - Altered mental status, unspecified Prescriptions: No Action tamsulosin 0.4 mg capsule 0.8 mg PO QPM Qty: 180 3RF sertraline 100 mg Tablet 100 mg PO DAILY baclofen 10 mg tablet 10 mg PO BID oxycodone 5 mg tablet 5 mg PO Q4H PRN (Reason: pain) Qty: 10 0RF ketorolac 10 mg tablet 10 mg PO Q6H PRN (Reason: pain) Qty: 20 0RF Rx Instructions: maximum total duration of 5 days from all oral, intranasal, or parenteral formulations ciprofloxacin HCl 500 mg tablet 500 mg PO BID 10 Days Qty: 20 0RF ondansetron 4 mg tablet,disintegrating 4 mg PO Q6H PRN (Reason: nausea and vomiting) Qty: 7 0RF hydrocodone-acetaminophen 5-325 mg tablet 1 tab PO Q6H PRN (Reason: pain) Qty: 14 0RF morphine 100 mg capsule,extend.release pellets 100 mg PO DAILY cholecalciferol (vitamin D3) 10 mcg (400 unit) capsule 10 mcg PO DAILY multivitamin [Daily Multi-Vitamin] Tablet 1 tab PO DAILY celecoxib 200 mg capsule 200 mg PO BID gabapentin 600 mg tablet 600 mg PO DAILY aspirin 81 mg tablet,delayed release (DR/EC) 81 mg PO DAILY atorvastatin 10 mg tablet 40 mg PO DAILY topiramate [Topamax] 25 mg tablet 25 mg PO DAILY albuterol sulfate 90 mcg/actuation aerosol powdr breath activated 1 inh inhalation Q4-6H PRN (Reason: Shortness Of Breath Or Wheezing) primidone 50 mg tablet 50 mg PO BEDTIME Referrals: Stanton Mas MD [Primary Care Provider] -
--- NOTE | 2024-08-23 15:36 | DI.CT.S_ITS ---
PROCEDURE: CT HEAD/BRAIN WO CON INDICATIONS: altered mental status TECHNIQUE: Noncontrast 4.5 mm thick angled axial sections acquired from the foramen magnum to the vertex, with coronal and sagittal reformats. For radiation dose reduction, the following was used: automated exposure control, adjustment of mA and/or kV according to patient size. COMPARISON: None. FINDINGS: Image quality: Diagnostic. CSF spaces: Basal cisterns are patent. No extra-axial fluid collections. The ventricles are symmetric in size and shape. Brain: Empty sella is noted. No intracranial bleeds or masses. There is cerebral volume loss for age, with resultant ventricular and sulcal prominence. There are periventricular and deep white matter chronic small vessel ischemic changes. There is intracranial internal carotid artery atherosclerosis. Skull and face: Calvarium and visualized facial bones appear intact, without suspicious lesions. Sinuses: Visualized sinuses and mastoids are clear. IMPRESSION: No acute intracranial pathology. Dictated by: Clint Bolaños M.D. on 08/23/2024 at 16:02 Approved by: Clint Bolaños M.D. on 08/23/2024 at 16:03
[2024-08-23] MEDS: SODIUM CHLORIDE 0.9% 1,000 ML 1000 ML IV (16:09)
[2024-08-23 16:28] LABS: UR Morphine/Opiate cutoff 300 Positive (Negative); Ur Creatinine Normal (Normal); Ur Specific Gravity Normal (Normal); Urine Amphetamines Negative (Negative); Urine Barbiturates Negative (Negative); Urine Benzodiazepines Negative (Negative); Urine Cocaine Negative (Negative); Urine MDMA Negative (Negative); Urine Methadone Negative (Negative); Urine Methamphetamines Negative (Negative); Urine Oxycodone Positive (Negative); Urine Phencyclidine Negative (Negative); Urine Tetrahydrocannabinol Negative (Negative); Urine Tricyclic Antidepressant Negative (Negative); Urine pH Normal (Normal)
[2024-08-23 16:29] LABS: Urine Volume 10mL (spun)
[2024-08-23 16:33] LABS: Bacteria Urine Many (>30); Calcium Oxalate Crystals Urine Occasional; Culture Indicated Urine Specimen Cultured; RBC Urine 5-10/HPF (0-5/HPF); Squamous Epithelial Cell Urine 1-5 /HPF (0-5/HPF); WBC Urine 10-30/HPF (0-5/HPF)
[2024-08-23 16:57] LABS: Influenza A - CEPHEID Flu A NEGATIVE (NEGATIVE); Influenza B - CEPHEID Flu B NEGATIVE (NEGATIVE); Respiratory Syncytial Virus Negative (Negative)
[2024-08-23 17:12] LABS: COVID-19 CEPHEID 4-PLEX PCR Negative (Negative)
--- NOTE | 2024-08-23 17:32 | DI.US.S_ITS ---
PROCEDURE: US RENAL COMPLETE INDICATIONS: HYDRONEPHROSIS TECHNIQUE: Real-time scanning was performed of the kidneys and bladder, with image documentation. COMPARISON: [facility], CT, CT ABDOMEN PELVIS WO CON, 08/18/2024, 12:59. FINDINGS: Kidneys: Kidneys are normal in size. Right kidney measures 12.4 cm long; left kidney measures 10.8 cm long. Right renal cortical thickness is 1.6 cm; left renal cortical thickness is 1.6 cm. Moderate to severe right-sided hydronephrosis is seen. There is also right proximal hydroureter measures up to 8.9 mm in diameter. No left-sided hydronephrosis. No suspicious solid mass lesions. Bladder: Pre-void bladder volume is 330 mL. Post-void residual is 0 mL. Pre-void images demonstrate no intraluminal masses or stones. On pre-void images, left ureteral jets are noted with color Doppler interrogation. (Of note, ureteral jets may not be detectable in up to 25% of cases due to insufficient differences in specific gravity between ureteral and bladder urine). Miscellaneous: No free pelvic fluid. Severe hepatic steatosis is seen. Mildly enlarged liver measures 17.5 cm in length. IMPRESSION: 1. Moderate to severe right-sided hydronephrosis and proximal hydroureter. No left-sided hydronephrosis. No solid appearing renal lesion. 2. Normal appearing urinary bladder. 3. Hepatomegaly and severe hepatic steatosis. Dictated by: Arnulfo Gomez M.D. on 08/23/2024 at 21:15 Approved by: Arnulfo Gomez M.D. on 08/23/2024 at 21:18
[2024-08-23] MEDS: cefTRIAXone 2,000 MG in SODIUM CHLORIDE 0.9% 100 ML 200 MG IV (17:55)
--- NOTE | 2024-08-23 18:02 | P.HP_ITS ---
History of Present Illness History of Present Illness Date Patient Seen: 08/23/24 Time Patient Seen: 18:02 Chief complaint: rtrn pt, back px Narrative: Patient was a 63-year-old female with a history of asthma, chronic pain, depression, and a recent diagnosis of a kidney stone on August 18. The stone was nonobstructing, she believes she may have passed a last Tuesday with increased pain which then improved and hematuria. She was started on Cipro and had a referral to Urology. The patient now presents with dizziness, global weakness, and fatigue. The patient was found to have evidence of NABEEL with a creatinine of 2.6 in the ED, a normal head CT, and urine tract infection by urine dip. She was started on IV fluids and ceftriaxone in the emergency department. She has been on Cipro for the last several days. She was a distant history of myasthenia gravis and a thymectomy at age 13. She would 2 relapses which primarily expressed as facial weakness. She does have a chronic and subacute droopy left eye which her notes has been ongoing for years. She was had intervention for kidney stones in the past twice. These were calcium oxalate. Her notes that she does not drink enough water. Her symptoms did improve Tuesday and she thought she passed the stone, however after IV fluids in the ER today she was increased right-sided flank pain. A urine culture from August 18 was negative. Urine dip today is positive implying the possibility of a new infection. CT of the abdomen on August 18 indicated a 4 mm right ureter calculus with moderate right hydronephrosis. A renal ultrasound was ordered to rule out obstruction of ureter in the emergency department. This is pending. NIH is 0, and she was afebrile with stable vital signs and a normal lactic acid. 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 Renal colic on right side Nephrolithiasis Right ureteral calculus delivery delivered Neurological disease High blood pressure Depression Arthritis Surgical History Hx of thymectomy (1974) History of bladder suspension procedure (1997) History of knee replacement History of cholecystectomy Family History Mother Blood disease Hearing impairment Hyperlipidemia Hypertension Migraine Son Cancer Father Coronary artery disease Hearing impairment Hypertension Social History marital status: number of children: 3 household members: spouse Smoking Status: Current every day smoker Tobacco: How many years used: 40 alcohol intake: never caffeine: Yes Type(s) of exercise: none Meds Home Medications and Allergies Home Medications Medication Instructions Recorded Confirmed Type aspirin 81 mg tablet,delayed 81 mg PO DAILY 07/28/23 08/01/24 History release celecoxib 200 mg capsule 200 mg PO BID 07/28/23 08/01/24 History gabapentin 600 mg tablet 600 mg PO DAILY 07/28/23 08/01/24 History baclofen 10 mg tablet 10 mg PO BID 08/01/23 08/01/24 History oxycodone 5 mg tablet 5 mg PO Q4H PRN pain #10 tabs 08/01/23 08/01/24 Rx sertraline 100 mg tablet 100 mg PO DAILY 08/01/23 08/01/24 History albuterol sulfate 90 mcg/actuation 1 inh inhalation Q4-6H PRN 09/08/23 08/01/24 History breath activated powder inhaler Shortness Of Breath Or Wheezing atorvastatin 10 mg tablet 40 mg PO DAILY 09/08/23 08/01/24 History topiramate 25 mg tablet (Topamax) 25 mg PO DAILY 09/08/23 08/01/24 History cholecalciferol (vitamin D3) 10 10 mcg PO DAILY 10/04/23 08/01/24 History mcg (400 unit) capsule morphine 100 mg capsule,extended 100 mg PO DAILY 10/04/23 08/01/24 History release pellets multivitamin (Daily Multi-Vitamin 1 tab PO DAILY 10/04/23 08/01/24 History tablet) primidone 50 mg tablet 50 mg PO BEDTIME 03/02/24 08/01/24 History ketorolac 10 mg tablet 10 mg PO Q6H PRN pain #20 tabs 03/25/24 08/01/24 Rx tamsulosin 0.4 mg capsule 0.8 mg (2 x 0.4 mg) PO QPM #180 07/31/24 08/01/24 Rx caps ciprofloxacin HCl 500 mg tablet 500 mg PO BID 10 days #20 tabs 08/18/24 Rx hydrocodone 5 mg-acetaminophen 325 1 tab PO Q6H PRN pain #14 tabs 08/18/24 Rx mg tablet ondansetron 4 mg disintegrating 4 mg PO Q6H PRN nausea and 08/18/24 Rx tablet vomiting #7 tabs Allergies Allergy/AdvReac Type Severity Reaction Status Date / Time Penicillins Allergy Rash Verified 08/18/24 10:59 Review of Systems Review of Systems Narrative: All else reviewed and otherwise unremarkable except as noted in the history and physical. Exam Vital Signs (past 8 hours): - 08/23/24 12:53 08/23/24 14:16 08/23/24 14:17 Temperature 98.5 F Pulse Rate 75 85 69 Respiratory Rate 17 Blood Pressure 152/68 H Pulse Oximetry 97 96 96 Oxygen Delivery Method Room Air 08/23/24 14:17 08/23/24 14:30 08/23/24 14:30 Temperature Pulse Rate 65 Respiratory Rate Blood Pressure 112/54 L 113/58 L Pulse Oximetry 98 Oxygen Delivery Method 08/23/24 15:00 08/23/24 15:00 08/23/24 15:45 Temperature Pulse Rate 58 L 74 Respiratory Rate 17 22 Blood Pressure 118/58 L Pulse Oximetry 96 96 Oxygen Delivery Method 08/23/24 15:46 08/23/24 15:46 08/23/24 16:00 Temperature Pulse Rate 69 61 Respiratory Rate 12 20 Blood Pressure 137/62 Pulse Oximetry 95 95 Oxygen Delivery Method 08/23/24 16:00 08/23/24 16:30 08/23/24 16:30 Temperature Pulse Rate 59 L Respiratory Rate 25 H Blood Pressure 139/63 129/63 Pulse Oximetry 96 Oxygen Delivery Method 08/23/24 17:00 08/23/24 17:00 08/23/24 17:30 Temperature Pulse Rate 60 57 L Respiratory Rate Blood Pressure 117/56 L Pulse Oximetry 95 96 Oxygen Delivery Method 08/23/24 17:31 08/23/24 17:31 Temperature Pulse Rate 63 Respiratory Rate 20 Blood Pressure 134/62 Pulse Oximetry 96 Oxygen Delivery Method Oxygen Delivery Method Room Air Narrative Exam Narrative: NAD, alert and oriented, fluent speech, calm. Normocephalic skull, EOMI, anicteric sclera, symmetric pupils. Oropharynx unremarkable, no droop. Neck supple, midline trachea, no adenopathy. Lungs clear, normal rate and effort. Heart regular, no murmur gallop or rub. Abdomen is soft, non distended and non tender. Extremities are free of edema. Skin is free of rash or lesions. Joints are not swollen or deformed. Judgment appears to be normal. Objective ECG Impression: Intervals [place] Rate: 70 P: 66 ME: 162 QRS: 42 QRSD: 72 T: 19 QT: 402 QTc: 434 Interpretive Statements Normal sinus rhythm Low voltage QRS Imaging CT scan - head: Radiologist's impression: No acute intracranial pathology. Dictated by: Clint Bolaños M.D. on 08/23/2024 at 16:02 Chest x-ray: Radiologist's impression: No acute cardiopulmonary abnormality is seen. Dictated by: Clint Bolaños M.D. on 08/23/2024 at 13:37 CT scan - abdomen: Radiologist's impression: IMPRESSION: Proximal 4 mm right ureteral calculus results in moderate right hydronephrosis. August 18. Labs 08/23/24 12:49 08/23/24 12:49 Labs: Laboratory Results - last 24 hr 08/23/24 08/23/24 08/23/24 12:49 16:10 16:11 WBC 8.7 RBC 3.82 L Hgb 11.8 L Hct 34.6 L MCV 90.6 MCH 30.8 MCHC 34.0 RDW 13.6 Plt Count 172 Neut % (Auto) 65.9 Lymph % (Auto) 23.2 L [place] % (Auto) 9.3 Eos % (Auto) 1.3 L Baso % (Auto) 0.3 Neut # (Auto) 5700 Lymph # (Auto) 2000 [place] # (Auto) 800 Eos # (Auto) 100 Baso # (Auto) 0 PT 11.4 INR 1.0 APTT 31 Sodium 137 Potassium 4.5 Chloride 106 Carbon Dioxide 25 BUN 29 H Creatinine 2.60 H Estimated GFR 20 L BUN/Creatinine Ratio 11.2 Glucose 114 H Calcium 8.4 Magnesium 2.0 Total Bilirubin 0.4 AST 27 ALT 18 Alkaline Phosphatase 55 Total Creatine Kinase 104 Troponin I < 0.012 Total Protein 7.2 Albumin 4.0 Globulin 3.2 Albumin/Globulin Ratio 1.3 Urine RBC 5-10/hpf H Urine WBC 10-30/hpf H Ur Squamous Epith Cells 1-5 /hpf Calcium Oxalate Crystal Occasional H Urine Bacteria Many (>30) H Urine Yeast 0-1/hpf Ur Culture Indicated? Specimen cultured Vol Urine Centrifuged 10ml (spun) U Opiates 300ng/mL cut Positive H Ur Oxycodone Screen Positive H Urine Methadone Screen Negative Ur Barbiturates Screen Negative U Tricyclic Antidepress Negative Ur Phencyclidine Scrn Negative Ur Amphetamines Screen Negative U Methamphetamines Scrn Negative Ur MDMA Scrn (Ecstasy) Negative U Benzodiazepines Scrn Negative Urine Cocaine Screen Negative U Marijuana (THC) Screen Negative Urine pH Normal Urine Specific [place] Normal Ur Creatinine Normal SARS-CoV-2 (PCR) Negative Influenza A (RT-PCR) Flu a negative Influenza B (RT-PCR) Flu b negative RSV (PCR) Negative Assessment & Plan Assessment & Plan narrative: 1. NABEEL, present on admission and active. 2. UTI, present on admission and active. 3. Obstructing nephrolithiasis, present on admission and possibly active. 4. Myasthenia gravis (distantly and on no current medications), not clearly active. 5. HTN, present on admission and stable. 6. Chronic pain and opiate dependence, on 100 mg of morphine a day. Present on admission and active. 7. Obstructive sleep apnea on chronic CPAP, present on admission and active. 8. Obesity class 1 with BMI of 33.9, present on admission and active. PLAN: -IV ceftriaxone. -monitor blood and urine cultures. -renal ultrasound is pending. If she is obstructed she may require stenting over the next 12-24 hours. -hold blood pressure medications and monitor blood pressure. -IV Dilaudid for pain control, we will need to reduce her morphine while her renal function is altered. She did take her full 100 mg today so we can reassess this in the morning after her repeat renal functions are available. -she states this does not feel like her myasthenia, however acute infection and the concurrent use of Cipro both can increase her risk of myasthenia. Therefore we will monitor vital capacity and MIP over the next 12-24 hours. Anticipate 1 midnight of hospital care, observation status as supported. She is full resuscitation. She lives in [place] with her , he was proxy decision maker. Time-Based Coding :: 35 min spent with patient and on the chart (including review of chart, obtaining history, exam, reviewing outside data, placing orders, documenting exam and treatment plan, and counseling patient) on 08/23. Quality MIPS - Admit I confirm the patient?s Advance Care Plan is present, Code status is documented, Surrogate decision maker is in patient?s record [If Yes, STOP here]: Yes The patient?s Advance Care plan is not present because I confirmed today that the patient does not wish or was not able to name a surrogate decision maker or provide an Advance Care Plan.: Yes
[2024-08-23] MEDS: SODIUM CHLORIDE 0.9% 1,000 ML 100 ML IV (18:40)
[2024-08-23] MEDS: HYDROMORPHONE 0.5 MG INJ IV ×2 (18:42→21:04)
--- NOTE | 2024-08-23 18:50 | PC.NURSE ---
Day shift: Pt in room from ED at approx 1845. Was seen by Dr Argueta. VS ok. RA 99%. Spouse in room on admit. Pt is TAZLINA. Spouse may go home and get Pt's CPAP. RT needs to be made aware of CPAP need. Able to transfer from stretcher with minimal direction. Oriented to room and call light. Call light in reach and bed alarm is on. Agrees to not get OOB w/o help from staff.
[2024-08-23] MEDS: HEPARIN 5,000 UNIT/ML VIAL 5000 UNIT SUBCUT (21:05)
[2024-08-23] MEDS: OXYCODONE IR 5 MG TABLET PO (21:06)
[2024-08-24] VITALS (14 sets, daily range): BP systolic 93–150; BP diastolic 45–78; PULSE 55–68; RESP 8–18; TEMP 36.1–37.5; O2SAT 94–100; BMI 33.9
--- NOTE | 2024-08-24 | DI.RAD.S_ITS ---
PROCEDURE: FL PYELOGRAM RETROGRADE COMPARISON: Merged With [facility], , US RENAL COMPLETE, 08/23/2024, 20:10. INDICATIONS: CYSTO FINDINGS: Fluoroscopic images demonstrating a dilated kidney with placement of ureterovesicular stent. IMPRESSION: Hydronephrosis with ureterovesicular stent.. Dictated by: Leticia Mann M.D. on 08/24/2024 at 12:57 Approved by: Leticia Mann M.D. on 08/24/2024 at 13:00
[2024-08-24] MEDS: OXYCODONE IR 5 MG TABLET PO ×2 (02:59→07:12)
[2024-08-24] MEDS: HYDROMORPHONE 0.5 MG INJ IV ×6 (02:59→22:29)
--- NOTE | 2024-08-24 03:38 | PC.NURSE ---
Patient slept well after Dilaudid IVP and Oxycodone PO administered at beginning of the shift, IV fluid infusing at 100ml/hr, tried to void without success, bladder scan done with 181 Ml max amount of urine noted per bladder scanner, denies bladder pressure or discomfort, bladder soft to palpation with no pain.
[2024-08-24 05:11] LABS: Add Manual Diff / Slide Review NO; Basophils Absolute Auto 0 /uL (0-100); Basophils Percent Auto 0.5 % (0-2); Eosinophils Absolute Auto 100 /uL (0-450); Eosinophils Percent Auto 1.7 % (2-4); Hematocrit 35.5 % (36-46); Lymphocytes Absolute Auto 1900 /uL (1100-4500); Lymphocytes Percent Auto 23.1 % (25-40); Mean Corpuscular HGB Conc 33.6 % (30-36); Mean Corpuscular Hemoglobin 30.7 PG (26-34); Mean Corpuscular Volume 91.3 fL (80-100); Monocytes Absolute Auto 1000 /uL (0-900); Monocytes Percent Auto 11.6 % (3-14); Neutrophils Absolute Auto 5300 /uL (1500-7000); Neutrophils Percent Auto 63.1 % (50-75); Platelet Count 151 X10^3/uL (150-400); Red Blood Cell Count 3.89 X10^6/uL (4.0-5.2); Red Cell Distribution Width 13.9 % (11.6-14.8); White Blood Cell Count 8.4 X10^3/uL (4.5-11.0)
[2024-08-24 05:30] LABS: BUN Creatinine Ratio 11.6 (6-22); Blood Urea Nitrogen 28 mg/dL (7-17); Calcium 8.2 mg/dL (8.4-10.2); Carbon Dioxide 22 mmol/L (22-32); Chloride 107 mmol/L (98-107); Estimated Glomerular Filt Rate 22 mL/min (>60); Glucose 85 mg/dL (80-110); HEMOLYSIS < 15 (0-50); Potassium 4.3 mmol/L (3.4-5.1); Sodium 138 mmol/L (137-145)
[2024-08-24] MEDS: SODIUM CHLORIDE 0.9% 1,000 ML 100 ML IV ×2 (05:43→21:03)
[2024-08-24] MEDS: HEPARIN 5,000 UNIT/ML VIAL 5000 UNIT SUBCUT (08:22)
--- NOTE | 2024-08-24 10:54 | P.CONS_ITS ---
History of Present Illness Consult details Date Patient Seen: 08/24/24 Time Patient Seen: 10:54 Chief complaint: right flank pain Narrative: 63 y/o F w/ h/o nephrolithiasis who was diagnosed w/ a 4mm right UPJ calculus in Mar and never returned for her repeat imaging after electing for continued medical expulsion therapy. She developed worsening right flank pain w/ increased urinary frequency in early August 2024 and presented to ER for further evaluation. This was notable for a WBC of 8, sCr of 1.11, a UA not concerning for infection w/ a subsequent negative UCx and a CT KUB that noted a 4mm calculus w/in the proximal right ureter resultant in upstream moderate hydroureteronephrosis and questionable other small nephroliths w/in right collecting system. Her case was discussed w/ [facility] Urologist who recommended outpatient antibiotics and close follow-up. She then returned to the ER on 23 Aug 2024 for evaluation of worsening right flank pain and increased fatigue. Her evaluation was now notable for a WBC of 8.7, sCr of 2.6 and a questionably infected UA. Her RBUS was notable for moderate to severe right hydroureteronephrosis and she was admitted overnight for antibiotics and observation. Urology was consulted regarding a possible right ureteral stent placement. Meds Home Medications and Allergies Home Medications Medication Instructions Recorded Confirmed Type aspirin 81 mg tablet,delayed 81 mg PO DAILY 07/28/23 08/24/24 History release celecoxib 200 mg capsule 200 mg PO BID 07/28/23 08/24/24 History gabapentin 600 mg tablet 600 mg PO DAILY 07/28/23 08/24/24 History baclofen 10 mg tablet 10 mg PO BID 08/01/23 08/24/24 History sertraline 100 mg tablet 100 mg PO DAILY 08/01/23 08/24/24 History albuterol sulfate 90 mcg/actuation 1 inh inhalation Q4-6H PRN 09/08/23 08/24/24 History breath activated powder inhaler Shortness Of Breath Or Wheezing atorvastatin 10 mg tablet 40 mg PO DAILY 09/08/23 08/24/24 History topiramate 25 mg tablet (Topamax) 25 mg PO DAILY 09/08/23 08/24/24 History cholecalciferol (vitamin D3) 10 10 mcg PO DAILY 10/04/23 08/24/24 History mcg (400 unit) capsule morphine 100 mg capsule,extended 100 mg PO DAILY 10/04/23 08/24/24 History release pellets multivitamin (Daily Multi-Vitamin 1 tab PO DAILY 10/04/23 08/24/24 History tablet) primidone 50 mg tablet 50 mg PO BEDTIME 03/02/24 08/24/24 History tamsulosin 0.4 mg capsule 0.8 mg (2 x 0.4 mg) PO QPM #180 07/31/24 08/24/24 Rx caps Allergies Allergy/AdvReac Type Severity Reaction Status Date / Time Penicillins Allergy Rash Verified 08/18/24 10:59 Review of Systems Review of Systems Narrative: CONSTITUTIONAL: Denies weight loss, fevers, chills. HEENT: Denies change in vision, hearing. RESP: Denies SOB, cough. CV: Denies palpations, CP. GI: Denies abdominal pain, nausea, vomiting, diarrhea. MSK: Denies myalgia, joint pain. SKIN: Denies rash, pruritus. NEURO: Denies headache, syncope. PSYCH: Denies recent change in mood, anxiety, depression. Exam Vital Signs (past 8 hours): - 08/24/24 03:30 08/24/24 08:00 08/24/24 09:00 Temperature 98 F 98.0 F Pulse Rate 61 68 Respiratory Rate 15 Blood Pressure 146/61 H 133/53 L Pulse Oximetry 94 98 Oxygen Flow Rate 0 Oxygen Delivery Method Room Air Oxygen Flow Rate 0 Narrative Exam Narrative: GEN: Alert and oriented X3. No acute distress. Well-nourished. EYES: PERRLA, EOMI. HENT: Moist mucus membranes, no scleral icterus, normal neck ROM. RESP: Unlabored breathing, equal rise and fall of chest bilaterally, no cyanosis appreciated. CV: No peripheral edema, unremarkable heart rate. ABD: Soft, non-tender, non-distended, no palpable masses. EXT: No edema, clubbing or cyanosis. SKIN: No rashes or lesions. NEURO: No focal neurologic deficits, CN II-XII grossly intact. PSYCH: Cooperative, appropriate mood and affect. Objective Labs 08/24/24 04:13 08/24/24 04:13 Labs: Laboratory Results - last 24 hr 08/23/24 08/23/24 08/23/24 12:49 16:10 16:11 WBC 8.7 RBC 3.82 L Hgb 11.8 L Hct 34.6 L MCV 90.6 MCH 30.8 MCHC 34.0 RDW 13.6 Plt Count 172 Neut % (Auto) 65.9 Lymph % (Auto) 23.2 L [place] % (Auto) 9.3 Eos % (Auto) 1.3 L Baso % (Auto) 0.3 Neut # (Auto) 5700 Lymph # (Auto) 2000 [place] # (Auto) 800 Eos # (Auto) 100 Baso # (Auto) 0 PT 11.4 INR 1.0 APTT 31 Sodium 137 Potassium 4.5 Chloride 106 Carbon Dioxide 25 BUN 29 H Creatinine 2.60 H Estimated GFR 20 L BUN/Creatinine Ratio 11.2 Glucose 114 H Calcium 8.4 Magnesium 2.0 Total Bilirubin 0.4 AST 27 ALT 18 Alkaline Phosphatase 55 Total Creatine Kinase 104 Troponin I < 0.012 Total Protein 7.2 Albumin 4.0 Globulin 3.2 Albumin/Globulin Ratio 1.3 Urine RBC 5-10/hpf H Urine WBC 10-30/hpf H Ur Squamous Epith Cells 1-5 /hpf Calcium Oxalate Crystal Occasional H Urine Bacteria Many (>30) H Urine Yeast 0-1/hpf Ur Culture Indicated? Specimen cultured Vol Urine Centrifuged 10ml (spun) U Opiates 300ng/mL cut Positive H Ur Oxycodone Screen Positive H Urine Methadone Screen Negative Ur Barbiturates Screen Negative U Tricyclic Antidepress Negative Ur Phencyclidine Scrn Negative Ur Amphetamines Screen Negative U Methamphetamines Scrn Negative Ur MDMA Scrn (Ecstasy) Negative U Benzodiazepines Scrn Negative Urine Cocaine Screen Negative U Marijuana (THC) Screen Negative Urine pH Normal Urine Specific [place] Normal Ur Creatinine Normal SARS-CoV-2 (PCR) Negative Influenza A (RT-PCR) Flu a negative Influenza B (RT-PCR) Flu b negative RSV (PCR) Negative 08/24/24 04:13 WBC 8.4 RBC 3.89 L Hgb 12.0 Hct 35.5 L MCV 91.3 MCH 30.7 MCHC 33.6 RDW 13.9 Plt Count 151 Neut % (Auto) 63.1 Lymph % (Auto) 23.1 L [place] % (Auto) 11.6 Eos % (Auto) 1.7 L Baso % (Auto) 0.5 Neut # (Auto) 5300 Lymph # (Auto) 1900 [place] # (Auto) 1000 H Eos # (Auto) 100 Baso # (Auto) 0 PT INR APTT Sodium 138 Potassium 4.3 Chloride 107 Carbon Dioxide 22 BUN 28 H Creatinine 2.41 H Estimated GFR 22 L BUN/Creatinine Ratio 11.6 Glucose 85 Calcium 8.2 L Magnesium Total Bilirubin AST ALT Alkaline Phosphatase Total Creatine Kinase Troponin I Total Protein Albumin Globulin Albumin/Globulin Ratio Urine RBC Urine WBC Ur Squamous Epith Cells Calcium Oxalate Crystal Urine Bacteria Urine Yeast Ur Culture Indicated? 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 Renal colic on right side Nephrolithiasis Right ureteral calculus delivery delivered Neurological disease High blood pressure Depression Arthritis Surgical History Hx of thymectomy (1974) History of bladder suspension procedure (1997) History of knee replacement History of cholecystectomy Family History Mother Blood disease Hearing impairment Hyperlipidemia Hypertension Migraine Son Cancer Father Coronary artery disease Hearing impairment Hypertension Social History marital status: number of children: 3 household members: spouse Tobacco & Substance Use Smoking Status: Current every day smoker Tobacco: How many years used: 40 alcohol intake: never Diet and Exercise caffeine: Yes Type(s) of exercise: none Assessment & Plan Assessment and plan (1) Right ureteral calculus: Status: Acute Plan: 63 y/o F w/ h/o nephrolithiasis who is admitted for management of a 4mm right proximal ureterolith in the setting of acute renal failure and questionable UTI. Discussed treatment options to include continued medical expulsion therapy (not recommended) vs cystoscopy with right ureteral stent placement. Discussed risks of the procedure to include pain, bleeding, infection, injury to urethra/bladder/ureter, inability to access the ureter requiring discussion with Interventional Radiology regarding a possible ureteral stent placement in an antegrade fashion vs a possible nephroureteral stent and/or percutaneous nephrostomy tube, urinary tract infection, need for emergent open repair of bladder and/or ureter. Informed consent was obtained. She will need definitive stone management in the future after she recovers. (2) Acute kidney injury: Status: Acute Plan: Please see plan above. Appreciate assistance of hospitalist team w/ the management of this patient. Time-Based Coding :: [TOTAL MINUTES] spent with patient and on the chart (including review of chart, obtaining history, exam, reviewing outside data, placing orders, documenting exam and treatment plan, and counseling patient) on [DATE]. PROFEE Charge Codes Inpatient or Observation consultation: 13899
[2024-08-24] MEDS: iopamidoL 30 ML VIAL 20 ML INJ (11:45)
--- NOTE | 2024-08-24 11:45 | SUR.OPER ---
Lithotomy on padded OR bed, head on pillow, arms secured on padded arm boards at <90 degrees abduction. Legs secured in padded yellow fins stirrups.
--- NOTE | 2024-08-24 11:53 | PM.OP.1 ---
Procedure & Clinicians Procedure: Cystoscopy Right ureteral stent placement Intraoperative interpretation of fluoroscopic images, total time < 1 hour Same procedure as scheduled: Yes Indications: 63 y/o F w/ h/o nephrolithiasis who is admitted for management of a 4mm right proximal ureterolith in the setting of acute renal failure and questionable UTI. Surgeon: Biju Sung Click Yes if Unassisted: Yes Anesthesia Type: General Operative Notes Findings: Right moderate hydroureteronephrosis proximal to aforementioned right proximal ureterolith, cloudy urine within bladder consistent with a urinary tract infection Closure Type: not applicable Specimen(s): none sent Estimated Blood Loss (mL): 2 Blood products transfused: none Procedure in detail: Patient was identified in the preoperative holding area and consent confirmed. She was then brought to the operating room where general anesthesia was induced.? She was then placed in the low lithotomy position. She was then prepped and draped in the usual sterile fashion. A surgical timeout was conducted and all were in agreement. Access to the bladder was obtained via a 21Fr cystoscope.? Cloudy urine was immediately noted within the bladder.? The right ureteral orifice was easily visualized and a 0.035 sensor tip ureteral guidewire was advanced through the 5Fr ureteral catheter and into the right renal collecting system.? The ureteral guidewire was removed and a retrograde pyelogram was performed which noted moderate right hydronephrosis.? The ureteral guidewire was readvanced through the ureteral catheter and into the right renal pelvis.? The ureteral catheter was then removed.? A 6Fr multi-length JJ ureteral stent without strings was then advanced over the ureteral guidewire and into the right renal collecting system.? Upon removal of the ureteral guidewire, a good curl was appreciated within the right renal pelvis upon fluoroscopy and visually within the bladder.? The bladder was then drained and the cystoscope was removed.? Anesthesia was reversed, she was extubated in the OR and transferred to the PACU in stable condition for recovery. Complications: none Post-operative Condition: stable Disposition: Acute Care Plan for aftercare: Transfer back to acute care for further management via the hospitalist. Will need definitive right ureteral stone management after she recovers.
--- NOTE | 2024-08-24 12:20 | PM.PN.IH.1 ---
Subjective Subjective Date Patient Seen: 08/24/24 Time Patient Seen: : Interval history: Narrative: Patient was a 63-year-old female with a history of asthma, chronic pain, depression, and a recent diagnosis of a kidney stone on August 18. The stone was nonobstructing, she believes she may have passed a last Tuesday with increased pain which then improved and hematuria. She was started on Cipro and had a referral to Urology. The patient now presents with dizziness, global weakness, and fatigue. The patient was found to have evidence of NABEEL with a creatinine of 2.6 in the ED, a normal head CT, and urine tract infection by urine dip. She was started on IV fluids and ceftriaxone in the emergency department. She has been on Cipro for the last several days. She was a distant history of myasthenia gravis and a thymectomy at age 13. She would 2 relapses which primarily expressed as facial weakness. She does have a chronic and subacute droopy left eye which her notes has been ongoing for years. She was had intervention for kidney stones in the past twice. These were calcium oxalate. Her notes that she does not drink enough water. Her symptoms did improve Tuesday and she thought she passed the stone, however after IV fluids in the ER today she was increased right-sided flank pain. A urine culture from August 18 was negative. Urine dip today is positive implying the possibility of a new infection. CT of the abdomen on August 18 indicated a 4 mm right ureter calculus with moderate right hydronephrosis. A renal ultrasound was ordered to rule out obstruction of ureter in the emergency department. This is pending. NIH is 0, and she was afebrile with stable vital signs and a normal lactic acid. Subjective: Renal ultrasound shows moderate to severe right hydronephrosis. She has ongoing severe right flank pain. Case reviewed with Dr. Biju Sung and urgent ureteral stent placement is planned due to persistent obstructing right ureteral stone causing septic pyelonephritis. This is discussed with the patient, her , and Urology at bedside. Exam Vital Signs (past 8 hours): - 08/24/24 08:00 08/24/24 09:00 08/24/24 11:14 Temperature 98.0 F 99 F Pulse Rate 68 61 Respiratory Rate 15 16 Blood Pressure 133/53 L 150/78 H Pulse Oximetry 98 96 Oxygen Delivery Method Room Air Oxygen Flow Rate 0 08/24/24 12:05 08/24/24 12:10 08/24/24 12:14 Temperature 99.5 F Pulse Rate 60 64 692 H Respiratory Rate 12 14 11 L Blood Pressure 93/48 L 112/55 L 108/45 L Pulse Oximetry 97 100 98 Oxygen Delivery Method Room Air Room Air Room Air Oxygen Flow Rate Oxygen Delivery Method Room Air Oxygen Flow Rate 0 Narrative Exam Narrative: NAD, alert and oriented, fluent speech, calm. Oropharynx unremarkable, no droop, mucous membranes pink and moist. Neck supple, midline trachea, no adenopathy. Lungs clear, normal rate and effort. Heart regular, no murmur gallop or rub. Abdomen is soft, non distended and non tender. Right flank tender to percussion. Extremities are free of edema. Skin is free of rash or lesions. Judgment appears to be normal. Objective ECG Impression: Intervals [place] Rate: 70 P: 66 NE: 162 QRS: 42 QRSD: 72 T: 19 QT: 402 QTc: 434 Interpretive Statements Normal sinus rhythm Low voltage QRS Imaging CT scan - head: Radiologist's impression: No acute intracranial pathology. 08/23/2024 Chest x-ray: Radiologist's impression: No acute cardiopulmonary abnormality is seen. 08/23/2024 CT scan - abdomen: Radiologist's impression: Proximal 4 mm right ureteral calculus results in moderate right hydronephrosis. 08/18/2024 Renal US: Radiologist's impression: 1. Moderate to severe right-sided hydronephrosis and proximal hydroureter. No left-sided hydronephrosis. No solid appearing renal lesion. 2. Normal appearing urinary bladder. 3. Hepatomegaly and severe hepatic steatosis. 08/23/2024 Labs 08/24/24 04:13 08/24/24 04:13 Labs: Laboratory Results - last 24 hr 08/23/24 08/23/24 08/23/24 12:49 16:10 16:11 WBC 8.7 RBC 3.82 L Hgb 11.8 L Hct 34.6 L MCV 90.6 MCH 30.8 MCHC 34.0 RDW 13.6 Plt Count 172 Neut % (Auto) 65.9 Lymph % (Auto) 23.2 L [place] % (Auto) 9.3 Eos % (Auto) 1.3 L Baso % (Auto) 0.3 Neut # (Auto) 5700 Lymph # (Auto) 2000 [place] # (Auto) 800 Eos # (Auto) 100 Baso # (Auto) 0 PT 11.4 INR 1.0 APTT 31 Sodium 137 Potassium 4.5 Chloride 106 Carbon Dioxide 25 BUN 29 H Creatinine 2.60 H Estimated GFR 20 L BUN/Creatinine Ratio 11.2 Glucose 114 H Calcium 8.4 Magnesium 2.0 Total Bilirubin 0.4 AST 27 ALT 18 Alkaline Phosphatase 55 Total Creatine Kinase 104 Troponin I < 0.012 Total Protein 7.2 Albumin 4.0 Globulin 3.2 Albumin/Globulin Ratio 1.3 Urine RBC 5-10/hpf H Urine WBC 10-30/hpf H Ur Squamous Epith Cells 1-5 /hpf Calcium Oxalate Crystal Occasional H Urine Bacteria Many (>30) H Urine Yeast 0-1/hpf Ur Culture Indicated? Specimen cultured Vol Urine Centrifuged 10ml (spun) U Opiates 300ng/mL cut Positive H Ur Oxycodone Screen Positive H Urine Methadone Screen Negative Ur Barbiturates Screen Negative U Tricyclic Antidepress Negative Ur Phencyclidine Scrn Negative Ur Amphetamines Screen Negative U Methamphetamines Scrn Negative Ur MDMA Scrn (Ecstasy) Negative U Benzodiazepines Scrn Negative Urine Cocaine Screen Negative U Marijuana (THC) Screen Negative Urine pH Normal Urine Specific [place] Normal Ur Creatinine Normal SARS-CoV-2 (PCR) Negative Influenza A (RT-PCR) Flu a negative Influenza B (RT-PCR) Flu b negative RSV (PCR) Negative 08/24/24 04:13 WBC 8.4 RBC 3.89 L Hgb 12.0 Hct 35.5 L MCV 91.3 MCH 30.7 MCHC 33.6 RDW 13.9 Plt Count 151 Neut % (Auto) 63.1 Lymph % (Auto) 23.1 L [place] % (Auto) 11.6 Eos % (Auto) 1.7 L Baso % (Auto) 0.5 Neut # (Auto) 5300 Lymph # (Auto) 1900 [place] # (Auto) 1000 H Eos # (Auto) 100 Baso # (Auto) 0 PT INR APTT Sodium 138 Potassium 4.3 Chloride 107 Carbon Dioxide 22 BUN 28 H Creatinine 2.41 H Estimated GFR 22 L BUN/Creatinine Ratio 11.6 Glucose 85 Calcium 8.2 L Magnesium Total Bilirubin AST ALT Alkaline Phosphatase Total Creatine Kinase Troponin I Total Protein Albumin Globulin Albumin/Globulin Ratio Urine RBC Urine WBC Ur Squamous Epith Cells Calcium Oxalate Crystal Urine Bacteria Urine Yeast Ur Culture Indicated? 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 Renal colic on right side Nephrolithiasis Right ureteral calculus delivery delivered Neurological disease High blood pressure Depression Arthritis Surgical History Hx of thymectomy (1974) History of bladder suspension procedure (1997) History of knee replacement History of cholecystectomy Family History Mother Blood disease Hearing impairment Hyperlipidemia Hypertension Migraine Son Cancer Father Coronary artery disease Hearing impairment Hypertension Social History marital status: number of children: 3 household members: spouse Smoking Status: Current every day smoker Tobacco: How many years used: 40 alcohol intake: never caffeine: Yes Type(s) of exercise: none Assessment & Plan Assessment & Plan narrative: 1. NABEEL, present on admission and active. 2. UTI, present on admission and active. 3. Obstructing nephrolithiasis, present on admission and possibly active. Case reviewed with Dr. Sung at bedside with patient. 4. Myasthenia gravis (distantly and on no current medications), not clearly active. 5. HTN, present on admission and stable. 6. Chronic pain and opiate dependence, on 100 mg of morphine a day. Present on admission and active. 7. Obstructive sleep apnea on chronic CPAP, present on admission and active. 8. Obesity class 1 with BMI of 33.9, present on admission and active. PLAN: -urgent ureteral stenting due to septic pyelonephritis today -IV ceftriaxone. -monitor blood and urine cultures. -hold blood pressure medications and monitor blood pressure. -IV Dilaudid for pain control, we will need to reduce her morphine while her renal function is altered. She did take her full 100 mg today so we can reassess this in the morning after her repeat renal functions are available. -she states this does not feel like her myasthenia, however acute infection and the concurrent use of Cipro both can increase her risk of myasthenia. Cipro was stopped. Therefore we will monitor vital capacity and MIP over the next 12-24 hours. Anticipate 2 midnights of hospital care, inpatient status as supported. She is full resuscitation. She lives in [place] with her , he is the proxy decision maker. PROFEE Relationship Consultant Document charge(s): No Charge Codes Subsequent inpatient/observation care: [id number]
[2024-08-24] MEDS: cefTRIAXone 1,000 MG in SODIUM CHLORIDE 0.9% 100 ML 200 MG IV (13:07)
--- NOTE | 2024-08-24 13:43 | SLP.IPNOTE ---
Speech orders cancelled per Dr. Gilliam. Pt is NPO for tests all day and can't be assessed for swallow at this time. ST recommends re-referral for speech therapy if swallow difficulties are of concern and Pt is no longer NPO.
--- NOTE | 2024-08-24 14:00 | CM.DANOTE ---
DCP Assessment Note: Pt is a 63yo female, resident of [place], is admitted for NABEEL, UTI and is s/p Pt lives in a house with her , Leonides and their dog, Odilon. Pt's Primary Care Provider is Dr. Stanton Mas and insurance is Medicare. Reviewed chart and discussed with multidisciplinary team pt's medical status and initial discharge needs. DCP met w/patient at bedside; introduced self and role. Patient was found in bed, just returned from surgery, cooperative with assessment. Present in the room were patient's family members: and daughter, Jody (ph# [phone]). It is confirmed that pt is independent at baseline and there is a preference to dc home with family when cleared. Pt reports no previous hx of SNF Rehab or Home health, declines need for referral in the community at this time. Plan: Anticipating dc home with family possibly 08/25 or when medically cleared. CM team will follow closely for coordination of discharge plans. Gabby Hamm [facility] Discharge Planning/Care Management CM Discharge Assessment Start: 08/24/24 13:59 Freq: Status: Active Protocol: Document 08/24/24 13:59 MW (Rec: 08/24/24 14:00 MW [id number]) Discharge Planning Assessment Assigned Decal Maker JEYSON Pierre DPOA/Assigned Designee Name Varsha Coyle Contact Information [phone] Advance Directives? No History Provided By Patient,Family Member,Medical Record Has Patient been admitted in last 30 No days? Prior Living Arrangements House Comment [place] Household Members spouse Type of transporation used prior to Drives own vehicle admit Independent with ADL's Yes Is patient alert and oriented? Yes Caregiver for Another No DME Already Rented / Owned Nebulizer Comment CPAP Barriers to Discharge No Discharge Plan Home Referrals Initiated None needed Whiteboard Updated in Patient Room with No name and ext. # of Decal Maker Review Status In Process Please Provide Date Initial DC 08/24/24 Assessment Was Performed Next Review Type Continued Stay Review
[2024-08-24] MEDS: TAMSULOSIN 0.4 MG CAPSULE 0.8 MG PO (16:59)
[2024-08-24] MEDS: ATORVASTATIN 20 MG TABLET 40 MG PO (21:03)
[2024-08-24] MEDS: PRIMIDONE 50 MG TABLET PO (21:04)
[2024-08-24] MEDS: BACLOFEN 10 MG TABLET PO (21:04)
--- NOTE | 2024-08-24 23:42 | RT ---
Patient on room air, NIF done @ 2300. -60 w/ great effort
[2024-08-25 01:41] VITALS: BP 126/56; PULSE 54; RESP 18; TEMP 36; O2SAT 100
[2024-08-25] MEDS: HYDROMORPHONE 0.5 MG INJ 1 MG IV (04:43)
[2024-08-25] MEDS: SODIUM CHLORIDE 0.9% 1,000 ML 100 ML IV (05:56)
--- NOTE | 2024-08-25 07:59 | P.PN_ITS ---
Subjective Subjective Date Patient Seen: 08/25/24 Time Patient Seen: 08: Interval history: Narrative: Patient was a 63-year-old female with a history of asthma, chronic pain, depression, and a recent diagnosis of a kidney stone on August 18. The stone was nonobstructing, she believes she may have passed a last Tuesday with increased pain which then improved and hematuria. She was started on Cipro and had a referral to Urology. The patient now presents with dizziness, global weakness, and fatigue. The patient was found to have evidence of NABEEL with a creatinine of 2.6 in the ED, a normal head CT, and urine tract infection by urine dip. She was started on IV fluids and ceftriaxone in the emergency department. She has been on Cipro for the last several days. She was a distant history of myasthenia gravis and a thymectomy at age 13. She would 2 relapses which primarily expressed as facial weakness. She does have a chronic and subacute droopy left eye which her notes has been ongoing for years. She was had intervention for kidney stones in the past twice. These were calcium oxalate. Her notes that she does not drink enough water. Her symptoms did improve Tuesday and she thought she passed the stone, however after IV fluids in the ER today she was increased right-sided flank pain. A urine culture from August 18 was negative. Urine dip today is positive implying the possibility of a new infection. CT of the abdomen on August 18 indicated a 4 mm right ureter calculus with moderate right hydronephrosis. A renal ultrasound was ordered to rule out obstruction of ureter in the emergency department. This is pending. NIH is 0, and she was afebrile with stable vital signs and a normal lactic acid. Subjective: Renal ultrasound shows moderate to severe right hydronephrosis, s/p right ureteral stent placement yesterday. She reports Exam Vital Signs (past 8 hours): - 08/25/24 01:41 Temperature 96.8 F L Pulse Rate 54 L Respiratory Rate 18 Blood Pressure 126/56 L Pulse Oximetry 100 Oxygen Flow Rate 0 Oxygen Delivery Method Room Air,CPAP Oxygen Flow Rate 0 Narrative Exam Narrative: NAD, alert and oriented, fluent speech, calm. Oropharynx unremarkable, no droop, mucous membranes pink and moist. Neck supple, midline trachea, no adenopathy. Lungs clear, normal rate and effort. Heart regular, no murmur gallop or rub. Abdomen is soft, non distended and non tender. Right flank tender to percussion. Extremities are free of edema. Skin is free of rash or lesions. Judgment appears to be normal. Objective ECG Impression: Intervals [place] Rate: 70 P: 66 [place]: 162 QRS: 42 QRSD: 72 T: 19 QT: 402 QTc: 434 Interpretive Statements Normal sinus rhythm Low voltage QRS Imaging CT scan - head: Radiologist's impression: No acute intracranial pathology. 08/23/2024 Chest x-ray: Radiologist's impression: No acute cardiopulmonary abnormality is seen. 08/23/2024 CT scan - abdomen: Radiologist's impression: Proximal 4 mm right ureteral calculus results in moderate right hydronephrosis. 08/18/2024 Renal US: Radiologist's impression: 1. Moderate to severe right-sided hydronephrosis and proximal hydroureter. No left-sided hydronephrosis. No solid appearing renal lesion. 2. Normal appearing urinary bladder. 3. Hepatomegaly and severe hepatic steatosis. 08/23/2024 Labs 08/24/24 04:13 08/24/24 04:13 Labs: Laboratory Results - last 24 hr 08/23/24 08/23/24 08/23/24 12:49 16:10 16:11 WBC 8.7 RBC 3.82 L Hgb 11.8 L Hct 34.6 L MCV 90.6 MCH 30.8 MCHC 34.0 RDW 13.6 Plt Count 172 Neut % (Auto) 65.9 Lymph % (Auto) 23.2 L [place] % (Auto) 9.3 Eos % (Auto) 1.3 L Baso % (Auto) 0.3 Neut # (Auto) 5700 Lymph # (Auto) 2000 [place] # (Auto) 800 Eos # (Auto) 100 Baso # (Auto) 0 PT 11.4 INR 1.0 APTT 31 Sodium 137 Potassium 4.5 Chloride 106 Carbon Dioxide 25 BUN 29 H Creatinine 2.60 H Estimated GFR 20 L BUN/Creatinine Ratio 11.2 Glucose 114 H Calcium 8.4 Magnesium 2.0 Total Bilirubin 0.4 AST 27 ALT 18 Alkaline Phosphatase 55 Total Creatine Kinase 104 Troponin I < 0.012 Total Protein 7.2 Albumin 4.0 Globulin 3.2 Albumin/Globulin Ratio 1.3 Urine RBC 5-10/hpf H Urine WBC 10-30/hpf H Ur Squamous Epith Cells 1-5 /hpf Calcium Oxalate Crystal Occasional H Urine Bacteria Many (>30) H Urine Yeast 0-1/hpf Ur Culture Indicated? Specimen cultured Vol Urine Centrifuged 10ml (spun) U Opiates 300ng/mL cut Positive H Ur Oxycodone Screen Positive H Urine Methadone Screen Negative Ur Barbiturates Screen Negative U Tricyclic Antidepress Negative Ur Phencyclidine Scrn Negative Ur Amphetamines Screen Negative U Methamphetamines Scrn Negative Ur MDMA Scrn (Ecstasy) Negative U Benzodiazepines Scrn Negative Urine Cocaine Screen Negative U Marijuana (THC) Screen Negative Urine pH Normal Urine Specific [place] Normal Ur Creatinine Normal SARS-CoV-2 (PCR) Negative Influenza A (RT-PCR) Flu a negative Influenza B (RT-PCR) Flu b negative RSV (PCR) Negative 08/24/24 04:13 WBC 8.4 RBC 3.89 L Hgb 12.0 Hct 35.5 L MCV 91.3 MCH 30.7 MCHC 33.6 RDW 13.9 Plt Count 151 Neut % (Auto) 63.1 Lymph % (Auto) 23.1 L [place] % (Auto) 11.6 Eos % (Auto) 1.7 L Baso % (Auto) 0.5 Neut # (Auto) 5300 Lymph # (Auto) 1900 [place] # (Auto) 1000 H Eos # (Auto) 100 Baso # (Auto) 0 PT INR APTT Sodium 138 Potassium 4.3 Chloride 107 Carbon Dioxide 22 BUN 28 H Creatinine 2.41 H Estimated GFR 22 L BUN/Creatinine Ratio 11.6 Glucose 85 Calcium 8.2 L Magnesium Total Bilirubin AST ALT Alkaline Phosphatase Total Creatine Kinase Troponin I Total Protein Albumin Globulin Albumin/Globulin Ratio Urine RBC Urine WBC Ur Squamous Epith Cells Calcium Oxalate Crystal Urine Bacteria Urine Yeast Ur Culture Indicated? 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 Renal colic on right side Nephrolithiasis Right ureteral calculus delivery delivered Neurological disease High blood pressure Depression Arthritis Surgical History Hx of thymectomy (1974) History of bladder suspension procedure (1997) History of knee replacement History of cholecystectomy Family History Mother Blood disease Hearing impairment Hyperlipidemia Hypertension Migraine Son Cancer Father Coronary artery disease Hearing impairment Hypertension Social History marital status: number of children: 3 household members: spouse Smoking Status: Current every day smoker Tobacco: How many years used: 40 alcohol intake: never caffeine: Yes Type(s) of exercise: none Assessment & Plan Assessment & Plan narrative: 1. NABEEL, present on admission and active. 2. UTI, present on admission and active, culture negative but likely higher tract infection s/p ureteral stent decompression 08/25.. 3. Obstructing nephrolithiasis, present on admission and possibly active. Case reviewed with Dr. Sung at bedside with patient. 4. Myasthenia gravis (distantly and on no current medications), not clearly active. 5. HTN, present on admission and stable. 6. Chronic pain and opiate dependence, on 100 mg of morphine a day. Present on admission and active. 7. Obstructive sleep apnea on chronic CPAP, present on admission and active. 8. Obesity class 1 with BMI of 33.9, present on admission and active. PLAN: -IV ceftriaxone empirically, culture negative -hold blood pressure medications and monitor blood pressure. -IV Dilaudid for pain control, we will need to reduce her morphine while her renal function is altered. She did take her full 100 mg today so we can reassess this in the morning after her repeat renal functions are available. -she states this does not feel like her myasthenia, however acute infection and the concurrent use of Cipro both can increase her risk of myasthenia. Cipro was stopped. Therefore we will monitor vital capacity and MIP over the next 12-24 hours. Anticipate 2 midnights of hospital care, inpatient status as supported. She is full resuscitation. She lives in [place] with her , he is the proxy decision maker. Time-Based Coding :: [TOTAL MINUTES] spent with patient and on the chart (including review of chart, obtaining history, exam, reviewing outside data, placing orders, documenting exam and treatment plan, and counseling patient) on [DATE].
[2024-08-25] MEDS: SODIUM CHLORIDE 0.9% FLUSH 10 ML IV (08:15)
[2024-08-25] MEDS: TOPIRAMATE 25 MG TABLET PO (08:15)
[2024-08-25] MEDS: MULTIVITAMIN 1 TABLET 1 TAB PO (08:15)
[2024-08-25] MEDS: SERTRALINE 50 MG TABLET 100 MG PO (08:15)
[2024-08-25] MEDS: GABAPENTIN 600 MG TABLET PO (08:15)
[2024-08-25] MEDS: CHOLECALCIFEROL (VITAMIN D3) 400 UNIT TABLET PO (08:15)
[2024-08-25] MEDS: MORPHINE ER 15 MG TABLET 90 MG PO (08:15)
[2024-08-25] MEDS: BACLOFEN 10 MG TABLET PO (08:15)
[2024-08-25] MEDS: ASPIRIN EC 81 MG TABLET PO (08:15)
[2024-08-25 08:46] LABS: Add Manual Diff / Slide Review NO; Basophils Absolute Auto 100 /uL (0-100); Basophils Percent Auto 1.2 % (0-2); Eosinophils Absolute Auto 0 /uL (0-450); Eosinophils Percent Auto 0.1 % (2-4); Hematocrit 37.8 % (36-46); Lymphocytes Absolute Auto 2100 /uL (1100-4500); Lymphocytes Percent Auto 25.1 % (25-40); Mean Corpuscular HGB Conc 34.3 % (30-36); Mean Corpuscular Hemoglobin 30.9 PG (26-34); Mean Corpuscular Volume 89.9 fL (80-100); Monocytes Absolute Auto 700 /uL (0-900); Monocytes Percent Auto 8.2 % (3-14); Neutrophils Absolute Auto 5600 /uL (1500-7000); Neutrophils Percent Auto 65.4 % (50-75); Platelet Count 143 X10^3/uL (150-400); Red Cell Distribution Width 13.5 % (11.6-14.8); White Blood Cell Count 8.5 X10^3/uL (4.5-11.0)
[2024-08-25 08:59] LABS: BUN Creatinine Ratio 20.4 (6-22); Blood Urea Nitrogen 29 mg/dL (7-17); Calcium 8.3 mg/dL (8.4-10.2); Carbon Dioxide 19 mmol/L (22-32); Chloride 108 mmol/L (98-107); Estimated Glomerular Filt Rate 41 mL/min (>60); Glucose 94 mg/dL (80-110); HEMOLYSIS 43 (0-50); Potassium 4.3 mmol/L (3.4-5.1); Sodium 137 mmol/L (137-145)
[2024-08-25 09:00] VITALS: BP 131/51; PULSE 77; RESP 18; TEMP 36.3; O2SAT 98
--- NOTE | 2024-08-25 09:34 | EKG_ITS ---
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
--- NOTE | 2024-08-25 11:49 | PM.DS.IH.1 ---
History of Present Illness History of Present Illness Date Patient Seen: 08/25/24 Time Patient Seen: 09:15 Date of Onset of Symptoms: 08/23/24 Chief complaint: right flank pain Narrative: Patient was a 63-year-old female with a history of asthma, chronic pain, depression, and a recent diagnosis of a kidney stone on August 18. The stone was nonobstructing, she believes she may have passed a last Tuesday with increased pain which then improved and hematuria. She was started on Cipro and had a referral to Urology. The patient now presents with dizziness, global weakness, and fatigue. The patient was found to have evidence of NABEEL with a creatinine of 2.6 in the ED, a normal head CT, and urine tract infection by urine dip. She was started on IV fluids and ceftriaxone in the emergency department. She has been on Cipro for the last several days. She was a distant history of myasthenia gravis and a thymectomy at age 13. She would 2 relapses which primarily expressed as facial weakness. She does have a chronic and subacute droopy left eye which her notes has been ongoing for years. She was had intervention for kidney stones in the past twice. These were calcium oxalate. Her notes that she does not drink enough water. Her symptoms did improve Tuesday and she thought she passed the stone, however after IV fluids in the ER today she was increased right-sided flank pain. A urine culture from August 18 was negative. Urine dip today is positive implying the possibility of a new infection. CT of the abdomen on August 18 indicated a 4 mm right ureter calculus with moderate right hydronephrosis. A renal ultrasound was ordered to rule out obstruction of ureter in the emergency department. This is pending. NIH is 0, and she was afebrile with stable vital signs and a normal lactic acid. Discharge Providers Provider Date of admission: 08/23/24 17:47 Discharge Date: 08/25/24 Primary care physician: Stanton Mas MD Consults: 08/23/24 14:58 Consult to Speech Therapy Evaluate & Treat Comment: Physician Instructions: Evaluate and treat 08/24/24 09:10 Consult to Physician Routine Comment: Consulting Provider: [place] Reason for consultation: right hydronephrosis/stent Has provider been notified: Yes Discharge provider: Dewayne Gilliam MD Summary Hospital Course Discharge Diagnosis: 1. Obstructive right ureterolithiasis, status post right ureteral stenting 08/24/2024. 1. NABEEL due to 1., improved status post stenting 2. UTI, presumed upper tract, culture negative. 4. Myasthenia gravis (distantly and on no current medications), not clearly active. 5. Essential hypertension. 6. Chronic pain and opiate dependence. 7. Obstructive sleep apnea on chronic CPAP. 8. Obesity. Hospital Course: The patient was admitted and administered broad-spectrum IV antibiotics, IV hydration, and urology consulted for urgent ureteral stenting due to the suspected likelihood of septic pyelonephritis. She felt dramatically better following stenting and creatinine improved from 2.60 mg/dL to 1.42 mg/dL at discharge. Her usual morphine was withheld due to impaired renal function initially but then resumed at discharge. She was feeling back to baseline and planning outpatient follow-up through her urologist and primary care provider. A 10 day course of empiric antibiotics is prescribed given possibility of upper tract infection with negative lower tract cultures noted. No other issues arose. Status at Discharge Cognitive/behavioral status at discharge: oriented Functional status at discharge: independent ambulation Overall status at discharge: patient is back to baseline Time Spent with Patient Time spent: Greater than 30 minutes Exam Vital Signs (past 8 hours): - 08/25/24 07:00 08/25/24 09:00 Temperature 97.4 F L Pulse Rate 77 Respiratory Rate 18 Blood Pressure 131/51 L Pulse Oximetry 98 Oxygen Delivery Method Room Air CPAP Oxygen Flow Rate 0 Oxygen Delivery Method Room Air,CPAP Oxygen Flow Rate 0 Narrative Exam Narrative: NAD, alert and oriented, fluent speech, calm. Oropharynx unremarkable, no droop, mucous membranes pink and moist. Neck supple, midline trachea, no adenopathy. Lungs clear, normal rate and effort. Heart regular, no murmur gallop or rub. Abdomen is soft, non distended and non tender. Right flank nontender. Extremities are free of edema. Skin is free of rash or lesions. Judgment appears to be normal. Objective ECG Impression: Normal sinus rhythm at 78 beats per minute Low voltage QRS Imaging CT scan - head: Radiologist's impression: No acute intracranial pathology. 08/23/2024 Chest x-ray: Radiologist's impression: No acute cardiopulmonary abnormality is seen. 08/23/2024 CT scan - abdomen: Radiologist's impression: Proximal 4 mm right ureteral calculus results in moderate right hydronephrosis. 08/18/2024 Renal US: Radiologist's impression: 1. Moderate to severe right-sided hydronephrosis and proximal hydroureter. No left-sided hydronephrosis. No solid appearing renal lesion. 2. Normal appearing urinary bladder. 3. Hepatomegaly and severe hepatic steatosis. 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 Arthritis delivery delivered Depression High blood pressure History of nephrolithiasis Left nephrolithiasis Myasthenia gravis Nephrolithiasis Neurological disease Renal colic on right side Right ureteral calculus S/P extracorporeal shock wave therapy (09/09/23) Surgical History History of bladder suspension procedure (1997) History of cholecystectomy History of knee replacement Hx of thymectomy (1974) Family History Mother Blood disease Hearing impairment Hyperlipidemia Hypertension Migraine Son Cancer Father Coronary artery disease Hearing impairment Hypertension Social History marital status: number of children: 3 household members: spouse Smoking Status: Current every day smoker Tobacco: How many years used: 40 alcohol intake: never caffeine: Yes Type(s) of exercise: none Discharge Plan Discharge Plan Patient Disposition: Home Provider Discharge Comment: Followup with urology as directed; followup with Dr. Stanton Mas 1 week Discharge orders & Medications Prescriptions: New cefuroxime axetil 500 mg tablet 500 mg PO BID Qty: 20 0RF Continued tamsulosin 0.4 mg capsule 0.8 mg PO QPM Qty: 180 3RF sertraline 100 mg Tablet 100 mg PO DAILY baclofen 10 mg tablet 10 mg PO BID morphine 100 mg capsule,extend.release pellets 100 mg PO DAILY cholecalciferol (vitamin D3) 10 mcg (400 unit) capsule 10 mcg PO DAILY multivitamin [Daily Multi-Vitamin] Tablet 1 tab PO DAILY celecoxib 200 mg capsule 200 mg PO BID gabapentin 600 mg tablet 600 mg PO DAILY aspirin 81 mg tablet,delayed release (DR/EC) 81 mg PO DAILY atorvastatin 10 mg tablet 40 mg PO DAILY topiramate [Topamax] 25 mg tablet 25 mg PO DAILY albuterol sulfate 90 mcg/actuation aerosol powdr breath activated 1 inh inhalation Q4-6H PRN (Reason: Shortness Of Breath Or Wheezing) primidone 50 mg tablet 50 mg PO BEDTIME Follow up/Referrals: Stanton Mas MD [Primary Care Provider] - Visit Report/Discharge Packet Stand Alone Forms: Patient Portal/API, Stroke Signs & Symptoms Discharge Data Primary Care Provider: Stanton Mas Quality MIPS - Admit I confirm the patient?s Advance Care Plan is present, Code status is documented, Surrogate decision maker is in patient?s record [If Yes, STOP here]: Yes MIPS - Meds 'Current medications' to include all prescriptions, jmbi-yji-rojvmbk products, herbals, cannabis/cannabidiol products, and vitamin/mineral/dietary (nutritional) supplements. I have utilized all available resources to obtain, update, or review the patient?s current medications. [If Yes, STOP here]: Yes MIPS - DC The patient has a history of heart transplant or Left Ventricular Assist Device (LVAD). If yes, STOP here.: No The patient has current or prior documentation of left ventricular ejection fraction (LVEF) less than or equal to 40%, or moderate or severely depressed left ventricular systolic function.: No A. The patient was prescribed or already taking an Angiotensin-Converting Enzyme (NEL) Inhibitor, or Angiotensin Receptor Mirtha (ARB).: No B. The patient was prescribed or already taking a beta-mirtha. [If Yes to Both A & B, STOP here]: No Patient not prescribed/taking NEL or ARB, no reason given.: No Patient not prescribed/taking beta-mirtha, no reason given.: No PROFEE Charge Codes Discharge inpatient/observation: [id number]
--- NOTE | 2024-08-25 15:06 | CM.DPC ---
DCP Discharge Home Per MD, pt's labs have improved and medically stable to d/c home today on PO abx and no identified barriers to discharge. Per Rn, d/c instructions provided and supportive Dtr bedside to provide transport home today and no concerns noted. Jazmín Arshad MSW
== END 2024-08-25 10:59 | disposition home or self-care (01) | DRG 854 ==
LOC: ED 17:41 → AC 18:15
PROVIDERS: Urology; Admitting Provider Hospitalist; Emergency Provider Emergency Medicine; PCP Internal Medicine; Referring Provider Emergency Medicine; Visit Provider Hospitalist
PROC: 0T768DZ Dilation of Right Ureter with Intraluminal Device, Via Natural or Artificial Opening Endoscopic (ICD-10-PCS; principal; 2024-08-24 11:00)
DX: A41.9 Sepsis, unspecified organism (principal); F11.20 Opioid dependence, uncomplicated; N13.6 Pyonephrosis; N17.9 Acute kidney failure, unspecified; G70.00 Myasthenia gravis without (acute) exacerbation; I10 Essential (primary) hypertension; G89.29 Other chronic pain; G47.33 Obstructive sleep apnea (adult) (pediatric); E66.811 Obesity, class 1; R29.810 Facial weakness; F17.210 Nicotine dependence, cigarettes, uncomplicated; Z87.442 Personal history of urinary calculi; Z90.89 Acquired absence of other organs; Z68.33 Body mass index [BMI] 33.0-33.9, adult
CPT/HCPCS: 0241U; 36415; 51798; 70450; 71045; 74420; 76770; 80048; 80053; 80305; 81003; 81015; 82550; 83735; 84484; 85025; 85610; 85730; 87086; 93005; 96361; 96365; 99285; 99406; C2617; J0696; J1100; J1171; J1644; J2250; J2405; J2704; J3010; Q9967

== ENCOUNTER → 2024-09-07 13:44 | Outpatient (CLI) | payer MEDICARE, OTHER, SELFPAY ==
[2024-08-23 20:30] VITALS: BMI 33.9
--- NOTE | 2024-09-07 13:46 | DI.CT.S_ITS ---
PROCEDURE: CT KIDNEY URETER BLADDER (KUB) INDICATIONS: 63 y/o F w/ 4mm right UPJ calculus, eval for passage. TECHNIQUE: Axial sections were acquired from the lung bases to the pubic symphysis. Coronal and sagittal reformats were performed. For radiation dose reduction, the following was used: automated exposure control, adjustment of mA and/or kV according to patient size. COMPARISON: [facility], RF, [place] PYELOGRAM RETROGRADE, 08/24/2024, 11:48. [facility], CT, CT ABDOMEN PELVIS WO CON, 08/18/2024, 12:59. FINDINGS: Image quality: Diagnostic. Lower Chest: No significant findings. URINARY: Right Kidney: No stones but there is moderate right-sided hydronephrosis. A double pigtail ureteral stent on the right is in normal position both superiorly and inferiorly. Right Ureter: No hydroureter. Left Kidney: No stones or hydronephrosis. Left Ureter: No hydroureter. Bladder: Normal wall thickness. No stones. ABDOMEN: Liver: No contour-deforming solid mass. Gallbladder: Previously resected. Biliary ducts: No biliary dilation. Pancreas: No ductal dilation. Spleen: Size is within normal limits. Adrenal Glands: No adrenal nodules. Stomach and Bowel: Normal colonic caliber, without significant wall thickening. Peritoneum: No abnormal intraperitoneal fluid. No free air. Ventral Wall: No hernia. Abdominal Nodes: No enlarged retroperitoneal or mesenteric lymph nodes. Vessels: Aorta and inferior vena cava are normal in size. PELVIS: Pelvic Organs: Unremarkable. Pelvic Nodes: Unremarkable. Miscellaneous: No inguinal hernias are seen. Bones: Unremarkable. IMPRESSION: Right-sided double pigtail ureteral stent positioning appears normal above and below. However, moderate hydronephrosis persists on the right. This may indicate prior episodic right-sided outflow obstruction, and a very small previously documented far distal right ureteral stone is no longer identified. Dictated by: Amor Higgins M.D. on 09/07/2024 at 15:40 Approved by: Amor Higgins M.D. on 09/07/2024 at 15:43
== END ==
LOC: CT 13:45
PROVIDERS: PCP Internal Medicine; Referring Provider Urology; Visit Provider Urology
DX: N20.1 Calculus of ureter (principal); N13.30 Unspecified hydronephrosis; Z96.0 Presence of urogenital implants
CPT/HCPCS: 74176

== ENCOUNTER 2024-10-15 09:14 | Day surgery (SDC) | payer MEDICARE, OTHER, SELFPAY ==
[2024-08-23 20:30] VITALS: BMI 33.9
[2024-09-21 10:43] VITALS: BMI 33.5
[2024-10-15] VITALS (7 sets, daily range): BP systolic 128–156; BP diastolic 60–90; PULSE 10–88; RESP 11–18; TEMP 36.1–36.4; O2SAT 95–98; BMI 33.5
--- NOTE | 2024-10-15 | DI.RAD.S_ITS ---
PROCEDURE: XR ABDOMEN 1V INDICATIONS: RIGHT STENT PLACEMENT TECHNIQUE: 2 intra-operative images acquired by the Urology service. COMPARISON: [facility], CR, XR ABDOMEN 1V, 08/01/2023, 10:53. FINDINGS: Intraoperative fluoroscopic images of abdomen shows contrast opacification of markedly distended right renal collecting system and right renal pelvis with placement of a right-sided ureteral stent. IMPRESSION: Fluoro guidance was provided intraoperatively for right-sided ureteral stent placement performed by ordering physician. Dictated by: Arnulfo Gomez M.D. on 10/15/2024 at 20:39 Approved by: Arnulfo Gomez M.D. on 10/15/2024 at 20:40
[2024-10-15] MEDS: ACETAMINOPHEN 325 MG TABLET 975 MG PO (09:27)
[2024-10-15] MEDS: LACTATED RINGERS 1,000 ML 21 ML IV (09:27)
--- NOTE | 2024-10-15 11:07 | P.HP_ITS ---
History of Present Illness History of Present Illness Date Patient Seen: 10/15/24 Time Patient Seen: 11:07 Chief complaint: Right ureteral stone management Narrative: 64 y/o F returns to OR for management of her newly diagnosed right ureteral stone and her urinary habits. She was noted to have worsening right flank pain w/ dysuria in August of 2024 and was diagnosed w/ a 4 mm calculus w/in her right proximal ureter w/ resultant upstream moderate hydroureteronephrosis and questionable other small nephroliths w/in her right renal collecting system. This was managed acutely with a cystoscopy and right ureteral stent placement. She returns today for a scheduled cystoscopy, right ureteroscopy, laser lithotripsy and right ureteral stent exchange. Regarding her h/o nephrolithiasis, she underwent a two-stage ESWL that was completed in September of 2023. She otherwise has never passed any kidney stones or had any other Urologic procedures. She had a Litholink performed in Jul that was notable for: total urine output of 1.5 L, elevated urinary oxalate levels, decreased urinary citrate levels, normal urinary uric acid and calcium levels, increased urinary sodium levels. Regarding her urinary habits, she admits to a weak urinary stream, urinary urgency (leaks significantly if not w/in the restroom w/in 4 minutes), and nocturia once per night. She states that her urinary stream trickles and that she often has to shift on the toilet to empty her bladder. These symptoms are all new since her ESWL in September of 2023. She otherwise denies any sensation of incomplete bladder emptying, urinary frequency or urinary hesitancy. She has been taking Tamsulosin 0.4mg daily since the aforementioned procedure and feels that it does benefit her symptoms (this was originally started by Dr. Leger). Her Uroflow/PVR today was notable for a VV of 352 cc, Qmax of 9.8 cc/s, Qavg of 4.2 cc/s and a PVR of 96 cc. Her curve was otherwise relatively flat and intermittent (not quite staccato pattern). She also admits to having a full Urologic evaluation at [facility] in 2016 to include a Uroflow/PVR and a UDS. She was told that she retains a little bit of urine and did pelvic floor physical therapy with minimal improvement in her symptoms. She does not remember any suspicious findings from her UDS. She will work on getting her records from [facility]. She also admits to having a bowel movement every third day. This is normal for her. She has been seen in Urology clinic multiple times and advised to start taking Miralax and titrate to achieve a soft daily bowel movement. She admits that it is difficult for her to remember to take this medication. 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 Renal colic on right side Nephrolithiasis Right ureteral calculus delivery delivered Neurological disease High blood pressure Depression Arthritis Surgical History S/P cervical spinal fusion S/P cystoscopy with ureteral stent placement (08/23/24) Hx of thymectomy (1974) History of bladder suspension procedure (1997) History of knee replacement History of cholecystectomy Family History Mother Blood disease Hearing impairment Hyperlipidemia Hypertension Migraine Son Cancer Father Coronary artery disease Hearing impairment Hypertension Social History marital status: number of children: 3 household members: spouse Smoking Status: Current every day smoker Tobacco: How many years used: 40 alcohol intake: never caffeine: Yes Type(s) of exercise: none Meds Home Medications and Allergies Home Medications Medication Instructions Recorded Confirmed Type aspirin 81 mg tablet,delayed 81 mg PO DAILY 07/28/23 10/15/24 History release celecoxib 200 mg capsule 200 mg PO BID 07/28/23 10/15/24 History gabapentin 600 mg tablet 600 mg PO DAILY 07/28/23 10/15/24 History baclofen 10 mg tablet 10 mg PO BID 08/01/23 10/15/24 History sertraline 100 mg tablet 100 mg PO DAILY 08/01/23 10/15/24 History albuterol sulfate 90 mcg/actuation 1 inh inhalation Q4-6H PRN 09/08/23 10/15/24 History breath activated powder inhaler Shortness Of Breath Or Wheezing atorvastatin 10 mg tablet 40 mg PO DAILY 09/08/23 10/15/24 History cholecalciferol (vitamin D3) 10 10 mcg PO DAILY 10/04/23 10/15/24 History mcg (400 unit) capsule morphine 100 mg capsule,extended 100 mg PO DAILY 10/04/23 10/15/24 History release pellets multivitamin (Daily Multi-Vitamin 1 tab PO DAILY 10/04/23 09/11/24 History tablet) primidone 50 mg tablet 50 mg PO BEDTIME 03/02/24 10/15/24 History oxycodone-acetaminophen 10 mg-325 1 tab PO Q8H PRN Pain (Scale Score 09/11/24 10/15/24 History mg tablet 4-6) tamsulosin 0.4 mg capsule 0.4 mg PO QPM 09/11/24 10/15/24 History terbinafine HCl 250 mg tablet 250 mg PO DAILY 09/11/24 10/15/24 History levofloxacin 500 mg tablet 500 mg PO DAILY #4 tabs 10/01/24 10/15/24 Rx tolterodine 2 mg capsule,extended 2 mg PO DAILY #30 caps 10/01/24 10/15/24 Rx release 24 hr alprazolam 0.25 mg tablet 0.5 mg PO BID 10/15/24 10/15/24 History Allergies Allergy/AdvReac Type Severity Reaction Status Date / Time Penicillins Allergy Rash Verified 10/15/24 09:32 Review of Systems Review of Systems Narrative: CONSTITUTIONAL: Denies weight loss, fevers, chills. HEENT: Denies change in vision, hearing. RESP: Denies SOB, cough. CV: Denies palpations, CP. GI: Denies abdominal pain, nausea, vomiting, diarrhea. : Denies dysuria, hematuria, inability to void. MSK: Denies myalgia, joint pain. SKIN: Denies rash, pruritus. NEURO: Denies headache, syncope. PSYCH: Denies recent change in mood, anxiety, depression. Exam Vital Signs (past 8 hours): - 10/15/24 10:05 Temperature 97 F L Pulse Rate 75 Respiratory Rate 16 Blood Pressure 156/76 H Pulse Oximetry 98 Oxygen Delivery Method Room Air Oxygen Delivery Method Room Air Narrative Exam Narrative: GEN: Alert and oriented X3. No acute distress. Well-nourished. EYES: PERRLA, EOMI. HENT: Moist mucus membranes, no scleral icterus, normal neck ROM. RESP: Unlabored breathing, equal rise and fall of chest bilaterally, no cyanosis appreciated. CV: No peripheral edema, unremarkable heart rate. ABD: Soft, non-tender, non-distended, no palpable masses. EXT: No edema, clubbing or cyanosis. SKIN: No rashes or lesions. NEURO: No focal neurologic deficits, CN II-XII grossly intact. PSYCH: Cooperative, appropriate mood and affect. Assessment & Plan Assessment and plan (1) Right ureteral calculus: Status: Acute Plan: 64 y/o F noted to have a 4mm right proximal ureterolith w/ questionable small right nephroliths in the setting of a UTI in August of 2024 that was managed acutely w/ a cystoscopy and right ureteral stent placement. Discussed the need for definitive stone management via a cystoscopy, right ureteroscopy, laser lithotripsy and right ureteral stent exchange. Discussed risks of the procedure to include pain, bleeding, infection, injury to urethra/bladder/ureter, inability to access the ureter requiring discussion with Interventional Radiology regarding a possible ureteral stent placement in an antegrade fashion vs a possible nephroureteral stent and/or percutaneous nephrostomy tube, urinary tract infection, inability to remove all of the stone in one setting, need for emergent open repair of bladder and/or ureter, need for multiple ureteroscopic interventions necessary to render the patient stone free. Informed consent was obtained today. Time-Based Coding :: [TOTAL MINUTES] spent with patient and on the chart (including review of chart, obtaining history, exam, reviewing outside data, placing orders, documenting exam and treatment plan, and counseling patient) on [DATE]. PROFEE Wrapper Operator Document charge(s): Yes Charge Codes Initial inpatient/observation care: [id number]
[2024-10-15] MEDS: levoFLOXacin 500 MG/100 ML PIGGYBACK 100 MG IV (11:33)
--- NOTE | 2024-10-15 11:36 | SUR.OPER ---
Lithotomy on padded OR bed, head on pillow, arms secured on padded arm boards at <90 degrees abduction. Legs secured in padded yellow fins stirrups.
[2024-10-15] MEDS: iopamidoL 30 ML VIAL INJ (11:47)
[2024-10-15] MEDS: PHENAZOPYRIDINE 100 MG TABLET 200 MG PO (12:52)
--- NOTE | 2024-10-15 12:57 | PM.OP.1 ---
Operative Date/Time/Diagnoses Date of procedure: 10/15/24 Pre-op diagnosis: Right ureteral stone Post-op diagnosis: same Procedure & Clinicians Procedure: Cystoscopy Right retrograde ureteropyelogram Right ureteroscopy Right ureteral stent exchange Intraoperative interpretation of fluoroscopic images, total time < 1 hour Same procedure as scheduled: Yes Indications: 64 y/o F noted to have a 4mm right proximal ureterolith w/ questionable small right nephroliths in the setting of a UTI in August of 2024 that was managed acutely w/ a cystoscopy and right ureteral stent placement. Discussed the need for definitive stone management via a cystoscopy, right ureteroscopy, laser lithotripsy and right ureteral stent exchange. Surgeon: Biju Sung Click Yes if Unassisted: Yes Anesthesia Type: General Operative Notes Findings: Small right nephrolith, small right ureteral stone Closure Type: not applicable Specimen(s): other (right ureteral stone) Estimated Blood Loss (mL): 2 Blood products transfused: none Procedure in detail: Procedures: 1) Cystoscopy 2) Right retrograde ureteropyelogram 3) Right ureteroscopy 4) Right ureteral stent exchange 5) Intraoperative interpretation of fluoroscopic images, < 1 hour, all images saved to PACS Indication: Patient was identified in the preoperative holding area and consent confirmed. She was then brought to the operating room where general anesthesia was induced.? She was placed in the low lithotomy position. She was then prepped and draped in the usual sterile fashion. A surgical timeout was conducted and all were in agreement. ?Access to the bladder was obtained via a 30 degree cystoscope.? Complete cystoscopy was then performed and no concerning bladder masses or lesions were appreciated.? Bilateral ureteral orifices were easily identified and noted to be orthotopic in nature.? The previously placed right ureteral stent was easily visualized and externalized using the stent grasper.? A 0.035 sensor tip ureteral guidewire was advanced through the stent and into the right renal pelvis.? A 12/14Fr ureteral access sheath was then advanced over the ureteral guidewire and into the proximal right ureter.? The ureteral guidewire and inner obturator were then removed.? The flexible ureteroscope was then advanced through the ureteral access sheath and into the right renal collecting system.? Complete pyeloscopy was then performed and a small stone was visualized in the right lower pole calyx.? This was removed via the stone basket and sent for chemical analysis.? A retrograde pyelogram was then performed which noted no filling defects concerning for residual stone.? The ureteral guidewire was then readvanced through the ureteroscope and into the right renal pelvis.? The ureter was then directly visualized upon removal of the ureteroscope and ureteral access sheath and noted to have another small stone that was also removed via the stone basket.? The cystoscope was then backloaded over the ureteral guidewire and advanced into the bladder.? A 6Fr multi-length ureteral stent with strings was then advanced over the ureteral guidewire.? Upon removal of the guidewire, a good curl was noted within the right renal pelvis upon fluoroscopy and visually within the bladder.? The bladder was then drained and the cystoscope was removed.? Anesthesia was reversed, she was extubated in the OR and transferred to the PACU in stable condition for recovery. Complications: none Post-operative Condition: stable Disposition: PACU Plan for aftercare: Discharge home from PACU. Will return to Urology clinic in 3 months for a RBUS and stone analysis review.
[2024-10-15] MEDS: HYDROMORPHONE 1 MG INJ IV ×2 (13:23→13:35)
[2024-10-15] MEDS: OXYCODONE IR 5 MG TABLET PO (13:23)
[2024-10-15] MEDS: ONDANSETRON 4 MG/2 ML INJ IV (13:24)
[2024-10-15] MEDS: OXYBUTYNIN 5 MG TABLET 10 MG PO (13:52)
[2024-10-23 15:08] LABS: Ca oxalate dihydrate 100 % (.); Size 3x3 mm (.)
== END 2024-10-15 14:07 | disposition home or self-care (01) ==
PROVIDERS: PCP Preventive Medicine Public Health & General Preventive Medicine; Referring Provider Urology; Visit Provider Urology
PROC: 0TF68ZZ Fragmentation in Right Ureter, Via Natural or Artificial Opening Endoscopic (ICD-10-PCS; CPT 52353; principal; 2024-10-15 10:45)
DX: N20.1 Calculus of ureter (principal); N20.2 Calculus of kidney with calculus of ureter
CPT/HCPCS: 52352; 52332; 74018; 74420; 76000; 82365; C2617; J1100; J1171; J1956; J2250; J2405; J2704; J3010; Q9967

== ENCOUNTER 2024-10-19 13:30 | Emergency (ER) | payer MEDICARE, OTHER, SELFPAY ==
[2024-08-23 20:30] VITALS: BMI 33.9
[2024-10-19] VITALS (25 sets, daily range): BP systolic 145–195; BP diastolic 65–106; PULSE 56–89; RESP 7–24; TEMP 36.6; O2SAT 95–99; BMI 33.9
--- NOTE | 2024-10-19 13:44 | DI.RAD.S_ITS ---
PROCEDURE: XR CHEST 1V INDICATIONS: chest pain TECHNIQUE: One view of the chest was acquired. COMPARISON: [facility], CR, XR CHEST 1V, 08/23/2024, 13:03. FINDINGS: Surgical changes and devices: Cervical fusion hardware, midline sternotomy Lungs and pleura: Lungs are clear. No pleural effusions or pneumothorax. Mediastinum: Mediastinal contours appear normal. Heart size is normal. Bones and chest wall: No suspicious bony lesions. Overlying soft tissues appear unremarkable. IMPRESSION: No acute cardiopulmonary abnormality is seen. Dictated by: Car Huerta M.D. on 10/19/2024 at 14:36 Approved by: Car Huerta M.D. on 10/19/2024 at 14:36
--- NOTE | 2024-10-19 13:44 | EKG_ITS ---
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
[2024-10-19 14:09] LABS: Add Manual Diff / Slide Review NO; Basophils Absolute Auto 100 /uL (0-100); Basophils Percent Auto 0.9 % (0-2); Eosinophils Absolute Auto 100 /uL (0-450); Eosinophils Percent Auto 2.2 % (2-4); Hematocrit 39.4 % (36-46); Hemoglobin 13.6 g/dL (12.0-16.0); Lymphocytes Absolute Auto 2100 /uL (1100-4500); Lymphocytes Percent Auto 32.3 % (25-40); Mean Corpuscular HGB Conc 34.5 % (30-36); Mean Corpuscular Hemoglobin 31.3 PG (26-34); Mean Corpuscular Volume 90.6 fL (80-100); Monocytes Absolute Auto 500 /uL (0-900); Monocytes Percent Auto 7.8 % (3-14); Neutrophils Absolute Auto 3700 /uL (1500-7000); Neutrophils Percent Auto 56.8 % (50-75); Platelet Count 192 X10^3/uL (150-400); Red Blood Cell Count 4.35 X10^6/uL (4.0-5.2); Red Cell Distribution Width 13.3 % (11.6-14.8); White Blood Cell Count 6.4 X10^3/uL (4.5-11.0)
[2024-10-19 14:15] LABS: Prothrombin Time 11.5 SECONDS (9.4-12.5)
[2024-10-19 14:18] LABS: PTT Partial Thromboplastin Tim 32 SECONDS (25.1-36.5)
[2024-10-19 14:19] LABS: Alanine Aminotransferase 17 IU/L (<35); Albumin 4.4 g/dL (3.5-5.0); Albumin Globulin Ratio 1.3 (1.0-2.8); Alkaline Phosphatase 55 U/L (38-126); Aspartate Aminotransferase 24 IU/L (14-36); BUN Creatinine Ratio 17.1 (6-22); Bilirubin Total 0.6 mg/dL (0.2-1.3); Blood Urea Nitrogen 20 mg/dL (7-17); Calcium 9.1 mg/dL (8.4-10.2); Carbon Dioxide 30 mmol/L (22-32); Chloride 104 mmol/L (98-107); Creatine Kinase 39 U/L (30-135); Estimated Glomerular Filt Rate 51 mL/min (>60); Globulin 3.4 g/dL (1.7-4.1); Glucose 134 mg/dL (70-99); HEMOLYSIS < 15 (0-50); Lipase 21 U/L (23-300); Sodium 139 mmol/L (137-145); Total Protein 7.8 g/dL (6.3-8.2)
[2024-10-19 14:31] LABS: NT-proBNP (BNP-Adult 18+) 327 pg/mL (<125); Troponin I < 0.012 ng/mL (0.01-0.034)
--- NOTE | 2024-10-19 18:48 | ED.NEUROSD ---
HPI - Neuro Symptoms/Deficit General Chief Complaint: Neuro Symptoms/Deficit Stated Complaint: lightheaded/dizzy post kidney stent procedure 10/15 Time Seen by Provider: 10/19/24 18:39 Source: patient Mode of arrival: Ambulatory History of Present Illness HPI Narrative: 63-year-old female history of high blood pressure depression chronic pain and kidney stones recently seen on August 18 here in the ER with a kidney stone 4 mm status post kidney stent placement and removal by the urologist this past Tuesday started feeling lightheaded dizzy and inability to focus. Patient is swelling in the right lower back where the stent was placed but otherwise denies any nausea, vomiting, diarrhea, constipation, blood in the stool urine, chest pain, shortness breath, cough, runny nose, sore throat, difficulty swallowing, speaking, weakness on 1 side. Other than what is stated 14 point review of system is negative On Anticoagulants: No Related Data Home Medications Medication Instructions Recorded Confirmed aspirin 81 mg tablet,delayed 81 mg PO DAILY 07/28/23 10/15/24 release celecoxib 200 mg capsule 200 mg PO BID 07/28/23 10/15/24 gabapentin 600 mg tablet 600 mg PO DAILY 07/28/23 10/15/24 baclofen 10 mg tablet 10 mg PO BID 08/01/23 10/15/24 sertraline 100 mg tablet 100 mg PO DAILY 08/01/23 10/15/24 albuterol sulfate 90 mcg/actuation 1 inh inhalation Q4-6H PRN 09/08/23 10/15/24 breath activated powder inhaler Shortness Of Breath Or Wheezing atorvastatin 10 mg tablet 40 mg PO DAILY 09/08/23 10/15/24 cholecalciferol (vitamin D3) 10 10 mcg PO DAILY 10/04/23 10/15/24 mcg (400 unit) capsule morphine 100 mg capsule,extended 100 mg PO DAILY 10/04/23 10/15/24 release pellets multivitamin (Daily Multi-Vitamin 1 tab PO DAILY 10/04/23 09/11/24 tablet) primidone 50 mg tablet 50 mg PO BEDTIME 03/02/24 10/15/24 oxycodone-acetaminophen 10 mg-325 1 tab PO Q8H PRN Pain (Scale Score 09/11/24 10/15/24 mg tablet 4-6) tamsulosin 0.4 mg capsule 0.4 mg PO QPM 09/11/24 10/15/24 terbinafine HCl 250 mg tablet 250 mg PO DAILY 09/11/24 10/15/24 alprazolam 0.25 mg tablet 0.5 mg PO BID 10/15/24 10/15/24 Previous Rx's Medication Instructions Recorded levofloxacin 500 mg tablet 500 mg PO DAILY #4 tabs 10/01/24 tolterodine 2 mg capsule,extended 2 mg PO DAILY #30 caps 10/01/24 release 24 hr oxycodone 5 mg tablet 5 mg PO TID PRN pain (scale score 10/15/24 7-10) #7 tabs Allergies Allergy/AdvReac Type Severity Reaction Status Date / Time Penicillins Allergy Rash Verified 10/19/24 13:36 Review of Systems Review of Systems ROS Unobtainable: All systems reviewed & are unremarkable except as noted in HPI and below Hematologic/Lymphatic On Anticoagulants: No Patient History Medical History S/P extracorporeal shock wave therapy (10/14/23) S/P extracorporeal shock wave therapy (09/09/23) History of nephrolithiasis Left nephrolithiasis Myasthenia gravis 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 Renal colic on right side Nephrolithiasis Right ureteral calculus delivery delivered Neurological disease High blood pressure Depression Arthritis Surgical History S/P cervical spinal fusion S/P cystoscopy with ureteral stent placement (08/23/24) Hx of thymectomy (1974) History of bladder suspension procedure (1997) History of knee replacement History of cholecystectomy Family History Mother Blood disease Hearing impairment Hyperlipidemia Hypertension Migraine Son Cancer Father Coronary artery disease Hearing impairment Hypertension Social History marital status: number of children: 3 household members: spouse Smoking Status: Current every day smoker Tobacco: How many years used: 40 alcohol intake: never caffeine: Yes Type(s) of exercise: none Smoking Status: Current every day smoker tobacco type: cigarettes alcohol intake frequency: holidays/special occasions only Exam Narrative Exam Narrative: GENERAL: [81] year old patient appears stated age. Well-developed patient, in mild distress. HEAD: Atraumatic. Normocephalic. EYES: Pupils equal round and reactive. Extraocular motions intact. No scleral icterus. No injection or drainage. ENT: Nose without bleeding, purulent drainage. Throat without erythema, tonsillar hypertrophy or exudate. Airway patent. NECK: Trachea midline. Non tender CARDIOVASCULAR: Regular rate and rhythm without murmurs, gallops, or rubs. RESPIRATORY: Clear to auscultation. Breath sounds equal bilaterally. No wheezes, rales, or rhonchi. GASTROINTESTINAL: Abdomen soft, non-tender, nondistended. EXTREMITIES: No edema or joint tenderness. BACK: Nontender without deformity or crepitance. No flank tenderness. NEURO: GCS 15 nonfocal neuro exam AOx4. Neg romberg SKIN: No rash or erythema of visible areas Initial Vital Signs Initial Vital Signs: Vital Signs Temperature 97.9 F 10/19/24 13:36 Pulse Rate 77 10/19/24 13:36 Respiratory Rate 16 10/19/24 13:36 Blood Pressure 149/69 H 10/19/24 13:36 Pulse Oximetry 97 10/19/24 13:36 Oxygen Delivery Method Room Air 10/19/24 13:36 Course Orders Ordered: ED Orders 10/19/24 13:44 XR chest 1V Stat EKG-12 Lead Stat 10/19/24 13:59 Complete Blood Count AUTO DIFF Stat Comprehensive Metabolic Panel Stat Lipase Stat Magnesium Stat NT-proBNP (BNP-Adult 18+) Stat PTT Partial Thromboplastin Yrn Stat Prothrombin Time INR Stat Troponin & CK Cardiac Panel Stat 10/19/24 18:55 CT head/brain wo con Stat 10/19/24 20:19 Urine Microscopic Stat Discontinued Medications Aspirin (Aspirin 81 Mg Chew Tab) 324 mg PO NOW ONE Stop: 10/19/24 13:45 Lactated Ringer's (Lactated Ringers) 500 mls @ 1,000 mls/hr IV BOLUS ONE Stop: 10/19/24 19:21 Last Infusion: 10/19/24 20:21 Dose: Infused Documented By: Admin: 10/19/24 19:02 Dose: 1,000 mls/hr Documented By: Vital Signs Vital signs: Vital Signs - 8 hr 10/19/24 13:36 10/19/24 15:27 10/19/24 15:30 Temperature 97.9 F Pulse Rate 77 62 61 Respiratory Rate 16 Blood Pressure 149/69 H Pulse Oximetry 97 97 Oxygen Delivery Method Room Air 10/19/24 15:32 10/19/24 16:00 10/19/24 16:01 Temperature Pulse Rate 60 63 64 Respiratory Rate 20 14 Blood Pressure 155/71 H Pulse Oximetry 98 98 97 Oxygen Delivery Method Room Air 10/19/24 16:01 10/19/24 16:30 10/19/24 16:31 Temperature Pulse Rate Respiratory Rate 15 Blood Pressure 158/76 H Pulse Oximetry 95 95 Oxygen Delivery Method 10/19/24 16:31 10/19/24 17:00 10/19/24 17:00 Temperature Pulse Rate 63 Respiratory Rate 15 Blood Pressure 145/66 H 145/65 H Pulse Oximetry 96 Oxygen Delivery Method 10/19/24 17:30 10/19/24 17:31 10/19/24 17:52 Temperature Pulse Rate 68 64 62 Respiratory Rate 24 19 19 Blood Pressure 146/106 H 161/86 H Pulse Oximetry 96 98 Oxygen Delivery Method 10/19/24 18:00 10/19/24 18:30 10/19/24 18:35 Temperature Pulse Rate 57 L 64 60 Respiratory Rate 16 23 12 Blood Pressure 163/71 H 195/82 H Pulse Oximetry 97 96 98 Oxygen Delivery Method 10/19/24 19:00 10/19/24 19:24 10/19/24 19:30 Temperature Pulse Rate 61 59 L 59 L Respiratory Rate 15 16 7 L Blood Pressure 180/81 H Pulse Oximetry 97 97 Oxygen Delivery Method 10/19/24 19:40 10/19/24 19:40 10/19/24 20:00 Temperature Pulse Rate 60 59 L Respiratory Rate 15 20 Blood Pressure 163/76 H Pulse Oximetry 97 99 Oxygen Delivery Method 10/19/24 20:02 10/19/24 20:02 10/19/24 20:04 Temperature Pulse Rate 58 L Respiratory Rate 13 Blood Pressure 195/86 H 195/87 H Pulse Oximetry 98 Oxygen Delivery Method MDM - Neuro Symptoms/Deficit Lab Data 10/19/24 13:59 10/19/24 13:59 Labs: Lab Results 10/19/24 10/19/24 Range/Units 13:59 20:19 WBC 6.4 (4.5-11.0) X10^3/uL RBC 4.35 (4.0-5.2) X10^6/uL Hgb 13.6 (12.0-16.0) g/dL Hct 39.4 (36-46) % MCV 90.6 (80-100) fL MCH 31.3 (26-34) PG MCHC 34.5 (30-36) % RDW 13.3 (11.6-14.8) % Plt Count 192 (150-400) X10^3/uL Neut % (Auto) 56.8 (50-75) % Lymph % (Auto) 32.3 (25-40) % [place] % (Auto) 7.8 (3-14) % Eos % (Auto) 2.2 (2-4) % Baso % (Auto) 0.9 (0-2) % Neut # (Auto) 3700 (8101-9366) /uL Lymph # (Auto) 2100 (1233-1570) /uL [place] # (Auto) 500 (0-900) /uL Eos # (Auto) 100 (0-450) /uL Baso # (Auto) 100 (0-100) /uL PT 11.5 (9.4-12.5) SECONDS INR 1.0 (0.9-1.3) APTT 32 (25.1-36.5) SECONDS Sodium 139 (137-145) mmol/L Potassium 4.0 (3.4-5.1) mmol/L Chloride 104 (98-107) mmol/L Carbon Dioxide 30 (22-32) mmol/L BUN 20 H (7-17) mg/dL Creatinine 1.17 H (0.52-1.04) mg/dL Estimated GFR 51 L (>60) mL/min BUN/Creatinine Ratio 17.1 (6-22) Glucose 134 H (70-99) mg/dL Calcium 9.1 (8.4-10.2) mg/dL Magnesium 2.0 (1.6-2.3) mg/dL Total Bilirubin 0.6 (0.2-1.3) mg/dL AST 24 (14-36) IU/L ALT 17 (<35) IU/L Alkaline Phosphatase 55 (38-126) U/L Total Creatine Kinase 39 (30-135) U/L Troponin I < 0.012 (0.01-0.034) ng/mL NT-Pro-B Natriuret Pep 327 H (<125) pg/mL Total Protein 7.8 (6.3-8.2) g/dL Albumin 4.4 (3.5-5.0) g/dL Globulin 3.4 (1.7-4.1) g/dL Albumin/Globulin Ratio 1.3 (1.0-2.8) Lipase 21 L (23-300) U/L Urine RBC 5-10/hpf H (0-5/HPF) Urine WBC 1-5/hpf (0-5/HPF) Ur Squamous Epith Cells 1-5 /hpf (0-5/HPF) Urine Bacteria Few (2-10) H (None) Ur Culture Indicated? Cult not indicated Vol Urine Centrifuged 10ml (spun) Urine Dip Bedside Urine Glucose Negative Bedside Urine Bilirubin - Negative Bedside Urine Ketone - Negative Urine Specific [place] 1.010 Bedside Urine Occult Blood +++ Bedside Urine pH 6.0 Bedside Urine Protein - Negative Bedside Urine Urobilinogen - Negative Bedside Urine Nitrite - Negative Bedside Urine Leukocytes - Negative Esterase Imaging Data Chest x-ray: Radiologist's Impression: [place] [address] XRay Report Signed Patient: Terri Rowley MR#: [id number] : 1960 Acct:[id number] Age/Sex: 64 / F Date of Service: 10/19/24 Loc: ED Accession Number: [id number] Procedure: XR chest 1V Ordering Provider: Madeline hSarp D.O. PROCEDURE: XR CHEST 1V INDICATIONS: chest pain TECHNIQUE: One view of the chest was acquired. COMPARISON: [facility], , XR CHEST 1V, 08/23/2024, 13:03. FINDINGS: Surgical changes and devices: Cervical fusion hardware, midline sternotomy Lungs and pleura: Lungs are clear. No pleural effusions or pneumothorax. Mediastinum: Mediastinal contours appear normal. Heart size is normal. Bones and chest wall: No suspicious bony lesions. Overlying soft tissues appear unremarkable. IMPRESSION: No acute cardiopulmonary abnormality is seen. Dictated by: Car Huerta M.D. on 10/19/2024 at 14:36 Approved by: Car Huerta M.D. on 10/19/2024 at 14:36 CT scan - head: Radiologist's Impression: [address] [address] [address] Scan Report Signed Patient: Terri Rowley MR#: [id number] : 1960 Acct:[id number] Age/Sex: 64 / F Date of Service: 10/19/24 Loc: ED Accession Number: [id number] Procedure: CT head/brain wo con Ordering Provider: Kyle Arguello D.O. PROCEDURE: CT HEAD/BRAIN WO CON INDICATIONS: dizziness TECHNIQUE: Noncontrast 4.5 mm thick angled axial sections acquired from the foramen magnum to the vertex, with coronal and sagittal reformats. For radiation dose reduction, the following was used: automated exposure control, adjustment of mA and/or kV according to patient size. COMPARISON: [facility], CT, CT HEAD/BRAIN WO CON, 08/23/2024, 15:40. FINDINGS: Image quality: Streak artifact can be seen through the skull base. CSF spaces: Basal cisterns are patent. No extra-axial fluid collections. The ventricles are symmetric in size and shape. Brain: No intracranial bleeds or mass effect. There is cerebral volume loss, with resultant ventricular and sulcal prominence. There are periventricular and deep white matter chronic small vessel ischemic changes. There is intracranial internal carotid artery atherosclerosis. Skull and face: Calvarium and visualized facial bones appear intact, without suspicious lesions. Incidental note is made of hyperostosis frontalis. This is not considered to be pathologic in a woman of this age. Sinuses: Visualized sinuses and mastoids are clear. IMPRESSION: No imaging explanation is found for this patient's presenting symptoms. Unremarkable intracranial study for age, similar to prior. To the limits of this noncontrast study, no findings of intracranial masses or mass effect can be seen. Dictated by: Scott Rizo M.D. on 10/19/2024 at 18:09 Approved by: Scott Rizo M.D. on 10/19/2024 at 18:10 ECG Data Interpretation: NSR HR 71 GA 156 QRS [address]-t wave change Unchanged from 08/25/24 MDM Narrative Medical decision making narrative: All lab work vital signs nurse triage note medication list previous ER visits in all imaging modalities reviewed patient given 1 L of lactated ringer bolus. Patient feels better on reexamination. Differential diagnosis include mass CVA, tumor, vertigo, subdural, pneumonia, UTI, electrolyte derangement, viral etiology. Keep hydrated and return with new or worsening symptoms. Discharge Plan Departure Patient Disposition: Home Clinical Impression: Dizziness Instructions: DI for Dizziness-Nonvertigo Activity Restrictions/Additional Instructions: Return with new or worsening symptoms. Follow up with PCP on Tuesday if no improvement in symptoms and Urology at your next scheduled appointment. Keep hydrated Prescriptions: No Action tolterodine 2 mg capsule,extended release 24hr 2 mg PO DAILY Qty: 30 0RF levofloxacin 500 mg tablet 500 mg PO DAILY Qty: 4 0RF Rx Instructions: take one tab on the morning of , , and 16 October sertraline 100 mg Tablet 100 mg PO DAILY baclofen 10 mg tablet 10 mg PO BID alprazolam 0.25 mg tablet 0.5 mg PO BID oxycodone 5 mg tablet 5 mg PO TID PRN (Reason: pain (scale score 7-10)) Qty: 7 0RF morphine 100 mg capsule,extend.release pellets 100 mg PO DAILY cholecalciferol (vitamin D3) 10 mcg (400 unit) capsule 10 mcg PO DAILY multivitamin [Daily Multi-Vitamin] Tablet 1 tab PO DAILY tamsulosin 0.4 mg capsule 0.4 mg PO QPM terbinafine HCl 250 mg tablet 250 mg PO DAILY oxycodone-acetaminophen 10-325 mg tablet 1 tab PO Q8H PRN (Reason: Pain (Scale Score 4-6)) celecoxib 200 mg capsule 200 mg PO BID gabapentin 600 mg tablet 600 mg PO DAILY aspirin 81 mg tablet,delayed release (DR/EC) 81 mg PO DAILY atorvastatin 10 mg tablet 40 mg PO DAILY albuterol sulfate 90 mcg/actuation aerosol powdr breath activated 1 inh inhalation Q4-6H PRN (Reason: Shortness Of Breath Or Wheezing) primidone 50 mg tablet 50 mg PO BEDTIME Referrals: Lavelle Dowd MD [Primary Care Provider] - Stand Alone Forms: Patient Portal/API/Survey
--- NOTE | 2024-10-19 18:55 | DI.CT.S_ITS ---
PROCEDURE: CT HEAD/BRAIN WO CON INDICATIONS: dizziness TECHNIQUE: Noncontrast 4.5 mm thick angled axial sections acquired from the foramen magnum to the vertex, with coronal and sagittal reformats. For radiation dose reduction, the following was used: automated exposure control, adjustment of mA and/or kV according to patient size. COMPARISON: [facility], CT, CT HEAD/BRAIN WO CON, 08/23/2024, 15:40. FINDINGS: Image quality: Streak artifact can be seen through the skull base. CSF spaces: Basal cisterns are patent. No extra-axial fluid collections. The ventricles are symmetric in size and shape. Brain: No intracranial bleeds or mass effect. There is cerebral volume loss, with resultant ventricular and sulcal prominence. There are periventricular and deep white matter chronic small vessel ischemic changes. There is intracranial internal carotid artery atherosclerosis. Skull and face: Calvarium and visualized facial bones appear intact, without suspicious lesions. Incidental note is made of hyperostosis frontalis. This is not considered to be pathologic in a woman of this age. Sinuses: Visualized sinuses and mastoids are clear. IMPRESSION: No imaging explanation is found for this patient's presenting symptoms. Unremarkable intracranial study for age, similar to prior. To the limits of this noncontrast study, no findings of intracranial masses or mass effect can be seen. Dictated by: Scott Rizo M.D. on 10/19/2024 at 18:09 Approved by: Scott Rizo M.D. on 10/19/2024 at 18:10
[2024-10-19] MEDS: LACTATED RINGERS 500 ML 1000 ML IV (19:02)
[2024-10-19 20:29] LABS: Bacteria Urine Few (2-10); Culture Indicated Urine Cult Not Indicated; RBC Urine 5-10/HPF (0-5/HPF); Squamous Epithelial Cell Urine 1-5 /HPF (0-5/HPF); Urine Volume 10mL (spun); WBC Urine 1-5/HPF (0-5/HPF)
== END 2024-10-19 21:22 | disposition home or self-care (01) ==
PROVIDERS: Emergency Medicine; Emergency Provider Family Medicine; PCP Preventive Medicine Public Health & General Preventive Medicine
DX: R42 Dizziness and giddiness (principal); R22.2 Localized swelling, mass and lump, trunk; Z86.79 Personal history of other diseases of the circulatory system; Z98.890 Other specified postprocedural states
CPT/HCPCS: 70450; 71045; 80053; 81003; 81015; 82550; 83690; 83735; 83880; 84484; 85025; 85610; 85730; 93005; 96360; 99284

== ENCOUNTER 2024-12-16 09:59 | Emergency (ER) | payer MEDICARE, OTHER, SELFPAY ==
[2024-08-23 20:30] VITALS: BMI 33.9
[2024-12-16] VITALS (15 sets, daily range): BP systolic 110–140; BP diastolic 53–64; PULSE 62–87; RESP 13–24; TEMP 37.1; O2SAT 88–98; BMI 35.6
--- NOTE | 2024-12-16 10:15 | EKG_ITS ---
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
--- NOTE | 2024-12-16 10:15 | DI.RAD.S_ITS ---
PROCEDURE: XR CHEST 1V INDICATIONS: cough TECHNIQUE: One view of the chest was acquired. COMPARISON: [facility], CR, XR CHEST 1V, 10/19/2024, 13:58. [facility], CR, XR CHEST 1V, 08/23/2024, 13:03. FINDINGS AND IMPRESSION: Elevation of the right hemidiaphragm again seen. On this single view study, no airspace consolidation or pleural effusion is identified. Sternotomy wires and cervical postsurgical changes. Normal heart size. Dictated by: Jovon Hanley M.D. on 12/16/2024 at 9:27 Approved by: Jovon Hanley M.D. on 12/16/2024 at 9:28
--- NOTE | 2024-12-16 10:16 | ED.GENADULT ---
HPI - General Adult General Chief complaint: Shortness of Breath/Dyspnea Stated complaint: sick t-8, cough, chest pain, hot/cold sweats Time Seen by Provider: 12/16/24 10:14 History of Present Illness HPI narrative: 64-year-old woman with a history of hyperlipidemia, chronic neck pain on chronic morphine, depression, anxiety and continuing to smoke a pack-a-day of cigarettes presents with a cough with fevers and chills waxing and waning over the last 8 days. Cough is becoming more productive she complains of a stuffy nose, her chest hurting secondary to her cough significant head pain. No nausea vomiting or diarrhea. Has not noticed palpitations Related Data Home Medications ?Medication ?Instructions ?Recorded ?Confirmed aspirin 81 mg tablet,delayed 81 mg PO DAILY 07/28/23 12/16/24 release celecoxib 200 mg capsule 200 mg PO BID 07/28/23 12/16/24 gabapentin 600 mg tablet 600 mg PO DAILY 07/28/23 12/16/24 baclofen 10 mg tablet 10 mg PO BID 08/01/23 12/16/24 sertraline 100 mg tablet 100 mg PO DAILY 08/01/23 12/16/24 albuterol sulfate 90 mcg/actuation 1 inh inhalation Q4-6H PRN 09/08/23 12/16/24 breath activated powder inhaler Shortness Of Breath Or Wheezing atorvastatin 10 mg tablet 40 mg PO DAILY 09/08/23 12/16/24 morphine 100 mg capsule,extended 100 mg PO DAILY 10/04/23 12/16/24 release pellets multivitamin (Daily Multi-Vitamin 1 tab PO DAILY 10/04/23 12/16/24 tablet) primidone 50 mg tablet 50 mg PO BEDTIME 03/02/24 12/16/24 oxycodone-acetaminophen 10 mg-325 1 tab PO Q8H PRN Pain (Scale Score 09/11/24 12/16/24 mg tablet 4-6) tamsulosin 0.4 mg capsule 0.4 mg PO QPM 09/11/24 12/16/24 terbinafine HCl 250 mg tablet 250 mg PO DAILY 09/11/24 12/16/24 Previous Rx's ?Medication ?Instructions ?Recorded benzonatate 200 mg capsule 200 mg PO BID-TID PRN cough #14 12/16/24 caps cephalexin 500 mg capsule 500 mg PO TID #30 caps 12/16/24 doxycycline hyclate 100 mg tablet 100 mg PO BID #20 tabs 12/16/24 prednisone 20 mg tablet 40 mg (2 x 20 mg) PO DAILY #10 tabs 12/16/24 Allergies Allergy/AdvReac Type Severity Reaction Status Date / Time Penicillins Allergy Rash Verified 12/16/24 10:20 Review of Systems Review of Systems Narrative: Pertinent positive and negative findings as per HPI Patient History Medical History S/P extracorporeal shock wave therapy (10/14/23) S/P extracorporeal shock wave therapy (09/09/23) History of nephrolithiasis Left nephrolithiasis Myasthenia gravis 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 Renal colic on right side Nephrolithiasis Right ureteral calculus delivery delivered Neurological disease High blood pressure Depression Arthritis Surgical History S/P cervical spinal fusion S/P cystoscopy with ureteral stent placement (08/23/24) Hx of thymectomy (1974) History of bladder suspension procedure (1997) History of knee replacement History of cholecystectomy Family History Mother Blood disease Hearing impairment Hyperlipidemia Hypertension Migraine Son Cancer Father Coronary artery disease Hearing impairment Hypertension Social History marital status: number of children: 3 household members: spouse Smoking Status: Current every day smoker Tobacco: How many years used: 40 alcohol intake: never caffeine: Yes Type(s) of exercise: none tobacco type: cigarettes alcohol intake frequency: holidays/special occasions only Exam Initial Vital Signs Initial Vital Signs: Vital Signs Temperature 98.7 F 12/16/24 10:10 Pulse Rate 84 12/16/24 10:10 Respiratory Rate 15 12/16/24 10:10 Blood Pressure 140/64 12/16/24 10:10 Pulse Oximetry 95 12/16/24 10:10 Oxygen Delivery Method Room Air 12/16/24 10:10 General: Appears uncomfortable, significant productive cough, able to speak in 4-5 word sentences, no retractions Respiratory: Lungs minimal wheeze but significant rhonchi through the entire right lung field Cardiac: Regular rate and rhythm no murmurs no bruits Abdomen: Soft, nontender, no rebound or guarding, no flank pain Skin: Warm and dry, no rashes Neurologic: Grossly neurologically intact with no obvious asymmetries or abnormalities Extremities: No trauma, well perfused Psych: Cooperative, appropriate insight and affect Course Orders Ordered: ED Orders 12/16/24 10:15 XR chest 1V Stat Sputum Culture Stat Urinalysis and Microscopic Stat EKG-12 Lead Stat 12/16/24 10:41 Blood Culture Stat Complete Blood Count AUTO DIFF Stat Comprehensive Metabolic Panel Stat Lactate (Lactic Acid) Stat Lipase Stat Magnesium Stat NT-proBNP (BNP-Adult 18+) Stat Troponin I Stat Discontinued Medications Albuterol/Ipratropium (Albuterol/Ipratropium 3 Ml Ampul) 3 ml INH NOW ONE Stop: 12/16/24 10:15 Last Admin: 12/16/24 10:23 Dose: 3 ml Documented By: DARCIE Sodium Chloride (Normal Saline 0.9%) 1,000 mls @ 1,000 mls/hr IV BOLUS ONE Stop: 12/16/24 11:15 Last Infusion: 12/16/24 11:56 Dose: Infused Documented By: Admin: 12/16/24 10:47 Dose: 1,000 mls/hr Documented By: NEEL Vital Signs Vital signs: Vital Signs - 8 hr 12/16/24 10:10 12/16/24 10:10 12/16/24 10:10 Temperature 98.7 F Pulse Rate 84 85 Respiratory Rate 15 Blood Pressure 140/64 140/64 Pulse Oximetry 95 91 Oxygen Delivery Method Room Air Oxygen Flow Rate 12/16/24 10:24 12/16/24 10:30 12/16/24 10:30 Temperature Pulse Rate 87 75 Respiratory Rate 18 20 Blood Pressure 110/53 L Pulse Oximetry 96 97 Oxygen Delivery Method Room Air Oxygen Flow Rate 12/16/24 11:00 12/16/24 11:10 12/16/24 11:10 Temperature Pulse Rate 82 80 Respiratory Rate 20 19 Blood Pressure 114/56 L Pulse Oximetry 98 92 Oxygen Delivery Method Room Air Oxygen Flow Rate 12/16/24 11:30 12/16/24 12:00 12/16/24 12:09 Temperature Pulse Rate 74 68 Respiratory Rate 14 16 Blood Pressure Pulse Oximetry 92 88 L 93 Oxygen Delivery Method Room Air High Flow Nasal Cannula Oxygen Flow Rate 2 Medical Decision Making Lab Data 12/16/24 10:41 12/16/24 10:41 Labs: Lab Results 12/16/24 Range/Units 10:41 WBC 12.1 H (4.5-11.0) X10^3/uL RBC 4.18 (4.0-5.2) X10^6/uL Hgb 13.0 (12.0-16.0) g/dL Hct 37.5 (36-46) % MCV 89.6 (80-100) fL MCH 31.1 (26-34) PG MCHC 34.7 (30-36) % RDW 13.5 (11.6-14.8) % Plt Count 177 (150-400) X10^3/uL Neut % (Auto) 76.4 H (50-75) % Lymph % (Auto) 13.8 L (25-40) % [place] % (Auto) 9.1 (3-14) % Eos % (Auto) 0.2 L (2-4) % Baso % (Auto) 0.5 (0-2) % Neut # (Auto) 9200 H (3366-1983) /uL Lymph # (Auto) 1700 (0041-9659) /uL [place] # (Auto) 1100 H (0-900) /uL Eos # (Auto) 0 (0-450) /uL Baso # (Auto) 100 (0-100) /uL Sodium 135 L (137-145) mmol/L Potassium 3.6 (3.4-5.1) mmol/L Chloride 102 (98-107) mmol/L Carbon Dioxide 23 (22-32) mmol/L BUN 17 (7-17) mg/dL Creatinine 0.93 (0.52-1.04) mg/dL Estimated GFR > 60 (>60) mL/min BUN/Creatinine Ratio 18.3 (6-22) Glucose 144 H (70-99) mg/dL Lactate 1.3 (0.7-2.1) mmol/L Calcium 9.1 (8.4-10.2) mg/dL Magnesium 2.0 (1.6-2.3) mg/dL Total Bilirubin 1.0 (0.2-1.3) mg/dL AST 22 (14-36) IU/L ALT 16 (<35) IU/L Alkaline Phosphatase 73 (38-126) U/L Troponin I < 0.012 (0.01-0.034) ng/mL NT-Pro-B Natriuret Pep 334 H (<125) pg/mL Total Protein 8.0 (6.3-8.2) g/dL Albumin 4.2 (3.5-5.0) g/dL Globulin 3.8 (1.7-4.1) g/dL Albumin/Globulin Ratio 1.1 (1.0-2.8) Lipase 19 L (23-300) U/L MDM Narrative Medical decision making narrative: CC: Fever and cough Complicating co-morbidities: Continued pack-a-day smoker, hyperlipidemia, chronic pain Data collected from: patient Medical records reviewed: Patient hospital summary from August 25, 2024 with a kidney stone and acute kidney injury is reviewed. Differential considered: Bacterial pneumonia, sepsis, viral pneumonia, acute asthma exacerbation, heart failure, Exam documented above, pertinent findings include: Patient is coughing violently with sputum that is deep yellow and smelly being produced. Significant rhonchi through entire right side, no wheezing appreciated she is not tachycardic nor hypotensive. Remainder of exam is benign Lab Test results independently reviewed as above. Pertinent findings: CBC shows White count is 12.1 Chemistries show normal renal function Troponin is undetectable BNP is minimally elevated Lipase is low Independently reviewed EKG: Sinus rhythm at a rate of 81 without acute ischemic changes Imaging studies independently reviewed: Chest x-ray on independent review does suggest a developing middle or lower lobe right-sided infiltrate. Radiologist reads it as unremarkable Treatments: IV ceftriaxone, azithromycin Discussion: 64-year-old woman with 6 days of cough increasingly productive, on physical exam she clearly has a right-sided pneumonia. Chest x-ray looks like she is beginning to develop an infiltrate on that side. There was no signs of sepsis, no signs of heart failure or acute coronary syndrome, sputum culture and Gram stain is pending. She responded to the DuoNeb treatment so will choose to also treat her for an asthma exacerbation despite the fact that ?I do not have asthma I just smoke a pack a day?. She is ambulatory, oxygenation is 95% on room air, she is not hypotensive nor tachycardic. She does not need any further workup and is safe for discharge home we will plan on doxycycline and cephalexin treatment for 10 days. We will ask her to return if symptoms are not improved Discharge Plan Departure Patient Disposition: Home Clinical Impression: Pneumonia involving right lung Qualifiers: Pneumonia type: due to unspecified organism Lung location: unspecified part of lung Qualified Code(s): J18.9 - Pneumonia, unspecified organism Asthma exacerbation Qualifiers: Asthma severity: mild Asthma persistence: intermittent Qualified Code(s): J45.21 - Mild intermittent asthma with (acute) exacerbation Instructions: DI for Pneumonia -- Adult Activity Restrictions/Additional Instructions: Thank you for coming in today You are developing a bacterial pneumonia, you are given antibiotics in the emergency department do need to continue 10 additional days of both doxycycline and cephalexin. I am going to give you a prescription for 5 days of prednisone to help with inflammation Please use your albuterol inhaler 2 puffs up to every 4 hours as needed for shortness of breath or simply cough that will not stop Also going to give you a prescription for Tessalon Perles, as you are already on narcotic and still have significant cough it is something to add to try and help suppress the cough so you are able to get some sleep If you find that you are getting worse or develop any new symptoms, please feel free to return to the emergency department for further evaluation. Anything you can do to stop smoking is always going to help Prescriptions: New cephalexin 500 mg capsule 500 mg PO TID Qty: 30 0RF benzonatate 200 mg capsule 200 mg PO BID-TID PRN (Reason: cough) Qty: 14 0RF prednisone 20 mg tablet 40 mg PO DAILY Qty: 10 0RF doxycycline hyclate 100 mg tablet 100 mg PO BID Qty: 20 0RF No Action sertraline 100 mg Tablet 100 mg PO DAILY baclofen 10 mg tablet 10 mg PO BID morphine 100 mg capsule,extend.release pellets 100 mg PO DAILY multivitamin [Daily Multi-Vitamin] Tablet 1 tab PO DAILY tamsulosin 0.4 mg capsule 0.4 mg PO QPM terbinafine HCl 250 mg tablet 250 mg PO DAILY oxycodone-acetaminophen 10-325 mg tablet 1 tab PO Q8H PRN (Reason: Pain (Scale Score 4-6)) celecoxib 200 mg capsule 200 mg PO BID gabapentin 600 mg tablet 600 mg PO DAILY aspirin 81 mg tablet,delayed release (DR/EC) 81 mg PO DAILY atorvastatin 10 mg tablet 40 mg PO DAILY albuterol sulfate 90 mcg/actuation aerosol powdr breath activated 1 inh inhalation Q4-6H PRN (Reason: Shortness Of Breath Or Wheezing) primidone 50 mg tablet 50 mg PO BEDTIME Referrals: Lavelle Dowd MD [Primary Care Provider, Family Practice] Stand Alone Forms: Patient Portal/API
[2024-12-16] MEDS: ALBUTEROL/IPRATROPIUM 3 ML AMPUL INH (10:23)
[2024-12-16] MEDS: SODIUM CHLORIDE 0.9% 1,000 ML 1000 ML IV (10:47)
[2024-12-16 10:57] LABS: Add Manual Diff / Slide Review NO; Basophils Absolute Auto 100 /uL (0-100); Basophils Percent Auto 0.5 % (0-2); Eosinophils Absolute Auto 0 /uL (0-450); Eosinophils Percent Auto 0.2 % (2-4); Hematocrit 37.5 % (36-46); Lymphocytes Absolute Auto 1700 /uL (1100-4500); Lymphocytes Percent Auto 13.8 % (25-40); Mean Corpuscular HGB Conc 34.7 % (30-36); Mean Corpuscular Hemoglobin 31.1 PG (26-34); Mean Corpuscular Volume 89.6 fL (80-100); Monocytes Absolute Auto 1100 /uL (0-900); Monocytes Percent Auto 9.1 % (3-14); Neutrophils Absolute Auto 9200 /uL (1500-7000); Neutrophils Percent Auto 76.4 % (50-75); Platelet Count 177 X10^3/uL (150-400); Red Blood Cell Count 4.18 X10^6/uL (4.0-5.2); Red Cell Distribution Width 13.5 % (11.6-14.8); White Blood Cell Count 12.1 X10^3/uL (4.5-11.0)
[2024-12-16 11:08] LABS: Lactate (Lactic Acid) 1.3 mmol/L (0.7-2.1)
[2024-12-16 11:10] LABS: Alanine Aminotransferase 16 IU/L (<35); Albumin 4.2 g/dL (3.5-5.0); Albumin Globulin Ratio 1.1 (1.0-2.8); Alkaline Phosphatase 73 U/L (38-126); Aspartate Aminotransferase 22 IU/L (14-36); BUN Creatinine Ratio 18.3 (6-22); Blood Urea Nitrogen 17 mg/dL (7-17); Calcium 9.1 mg/dL (8.4-10.2); Carbon Dioxide 23 mmol/L (22-32); Chloride 102 mmol/L (98-107); Estimated Glomerular Filt Rate > 60 mL/min (>60); Globulin 3.8 g/dL (1.7-4.1); Glucose 144 mg/dL (70-99); HEMOLYSIS < 15 (0-50); Potassium 3.6 mmol/L (3.4-5.1); Sodium 135 mmol/L (137-145)
[2024-12-16 11:11] LABS: Lipase 19 U/L (23-300)
[2024-12-16 11:22] LABS: NT-proBNP (BNP-Adult 18+) 334 pg/mL (<125); Troponin I < 0.012 ng/mL (0.01-0.034)
[2024-12-16] MEDS: BENZONATATE 100 MG CAPSULE PO (12:34)
[2024-12-16] MEDS: cefTRIAXone 2,000 MG in SODIUM CHLORIDE 0.9% 100 ML 200 MG IV (12:34)
[2024-12-16] MEDS: methylPREDNISolone 125 MG/2 ML VIAL IV (12:34)
[2024-12-16] MEDS: AZITHROMYCIN 500 MG in DEXTROSE 5% IN WATER 250 ML 250 MG IV (13:03)
== END 2024-12-16 14:40 | disposition home or self-care (01) ==
PROVIDERS: Emergency Provider Emergency Medicine; PCP Preventive Medicine Public Health & General Preventive Medicine
DX: J18.9 Pneumonia, unspecified organism (principal); J45.21 Mild intermittent asthma with (acute) exacerbation; R07.9 Chest pain, unspecified; R51.9 Headache, unspecified; F17.210 Nicotine dependence, cigarettes, uncomplicated
CPT/HCPCS: 36415; 71045; 80053; 83605; 83690; 83735; 83880; 84484; 85025; 87040; 87070; 87077; 87185; 87205; 93005; 93010; 94640; 96361; 96365; 96367; 96375; 99284; J0696; J2919

== ENCOUNTER 2024-12-25 17:44 | Emergency (ER) | payer MEDICARE, OTHER, SELFPAY ==
[2024-08-23 20:30] VITALS: BMI 33.9
--- NOTE | 2024-12-25 18:00 | DI.RAD.S_ITS ---
PROCEDURE: XR CHEST 1V INDICATIONS: Chest Pain TECHNIQUE: One view of the chest was acquired. COMPARISON: [facility], CR, XR CHEST 1V, 12/16/2024, 10:10. FINDINGS: Surgical changes and devices: Cervical fusion hardware, midline sternotomy wires Lungs and pleura: Lungs are clear. No pleural effusions or pneumothorax. Mediastinum: Mediastinal contours appear normal. Heart size is normal. Bones and chest wall: No suspicious bony lesions. Overlying soft tissues appear unremarkable. IMPRESSION: No acute cardiopulmonary abnormality is seen. Dictated by: Car Huerta M.D. on 12/25/2024 at 18:42 Approved by: Car Huerta M.D. on 12/25/2024 at 18:42
[2024-12-25] MEDS: ASPIRIN 81 MG CHEW TAB 324 MG PO (18:04)
--- NOTE | 2024-12-25 18:05 | EKG_ITS ---
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
[2024-12-25 18:13] VITALS: BP 139/63; PULSE 68; RESP 13; TEMP 36.5; O2SAT 96; BMI 34.8
[2024-12-25 18:29] LABS: Add Manual Diff / Slide Review NO; Hematocrit 42.0 % (36-46); Hemoglobin 14.1 g/dL (12.0-16.0); Lymphocytes Absolute Auto 4200 /uL (1100-4500); Mean Corpuscular HGB Conc 33.5 % (30-36); Mean Corpuscular Hemoglobin 30.4 PG (26-34); Mean Corpuscular Volume 90.7 fL (80-100); Platelet Count 232 X10^3/uL (150-400)
[2024-12-25 18:37] LABS: INR 0.9 (0.9-1.3); Prothrombin Time 10.6 SECONDS (9.4-12.5)
[2024-12-25 18:40] LABS: PTT Partial Thromboplastin Tim 24 SECONDS (25.1-36.5)
[2024-12-25 18:42] LABS: Alanine Aminotransferase 22 IU/L (<35); Albumin 4.2 g/dL (3.5-5.0); Albumin Globulin Ratio 1.3 (1.0-2.8); Alkaline Phosphatase 71 U/L (38-126); Blood Urea Nitrogen 30 mg/dL (7-17); Calcium 8.5 mg/dL (8.4-10.2); Carbon Dioxide 26 mmol/L (22-32); Chloride 102 mmol/L (98-107); Creatine Kinase 36 U/L (30-135); Estimated Glomerular Filt Rate 53 mL/min (>60); Globulin 3.3 g/dL (1.7-4.1); Glucose 97 mg/dL (70-99); HEMOLYSIS < 15 (0-50); Lipase 36 U/L (23-300); Magnesium 2.1 mg/dL (1.6-2.3); Potassium 3.4 mmol/L (3.4-5.1); Sodium 136 mmol/L (137-145); Total Protein 7.5 g/dL (6.3-8.2)
[2024-12-25 18:54] LABS: NT-proBNP (BNP-Adult 18+) 121 pg/mL (<125); Troponin I < 0.012 ng/mL (0.01-0.034)
[2024-12-25 19:52] VITALS: BP 120/58; PULSE 64; TEMP 36.7; O2SAT 98
[2024-12-25 21:00] LABS: Troponin I < 0.012 ng/mL (0.01-0.034)
--- NOTE | 2024-12-25 22:52 | ED.CHESTPAIN ---
HPI - Chest Pain General Chief Complaint: Chest Pain Stated Complaint: Chest pain Time Seen by Provider: 12/25/24 22:52 Source: patient Mode of arrival: Ambulatory Limitations: no limitations History of Present Illness HPI narrative: Patient is a 64-year-old female with a past medical history of asthma hyperlipidemia, chronic neck pain on morphine, anxiety depression, presenting from home for evaluation of chest pain, cranial to patient she started complaining of chest pain to the left side of her chest and neck, to note she is taking antibiotics for pneumonia. She denies any shortness of breath denies any other symptoms such as headache visual disturbances fever chills nausea vomiting abdominal pain or any other GI/ symptoms at this time. Related Data Home Medications ?Medication ?Instructions ?Recorded ?Confirmed aspirin 81 mg tablet,delayed 81 mg PO DAILY 07/28/23 12/16/24 release celecoxib 200 mg capsule 200 mg PO BID 07/28/23 12/16/24 gabapentin 600 mg tablet 600 mg PO DAILY 07/28/23 12/16/24 baclofen 10 mg tablet 10 mg PO BID 08/01/23 12/16/24 sertraline 100 mg tablet 100 mg PO DAILY 08/01/23 12/16/24 albuterol sulfate 90 mcg/actuation 1 inh inhalation Q4-6H PRN 09/08/23 12/16/24 breath activated powder inhaler Shortness Of Breath Or Wheezing atorvastatin 10 mg tablet 40 mg PO DAILY 09/08/23 12/16/24 morphine 100 mg capsule,extended 100 mg PO DAILY 10/04/23 12/16/24 release pellets multivitamin (Daily Multi-Vitamin 1 tab PO DAILY 10/04/23 12/16/24 tablet) primidone 50 mg tablet 50 mg PO BEDTIME 03/02/24 12/16/24 oxycodone-acetaminophen 10 mg-325 1 tab PO Q8H PRN Pain (Scale Score 09/11/24 12/16/24 mg tablet 4-6) tamsulosin 0.4 mg capsule 0.4 mg PO QPM 09/11/24 12/16/24 terbinafine HCl 250 mg tablet 250 mg PO DAILY 09/11/24 12/16/24 Previous Rx's ?Medication ?Instructions ?Recorded benzonatate 200 mg capsule 200 mg PO BID-TID PRN cough #14 12/16/24 caps cephalexin 500 mg capsule 500 mg PO TID #30 caps 12/16/24 doxycycline hyclate 100 mg tablet 100 mg PO BID #20 tabs 12/16/24 prednisone 20 mg tablet 40 mg (2 x 20 mg) PO DAILY #10 tabs 12/16/24 cyclobenzaprine 10 mg tablet 10 mg PO BEDTIME PRN muscle spasm 12/25/24 1 week #7 tabs Allergies Allergy/AdvReac Type Severity Reaction Status Date / Time Penicillins Allergy Rash Verified 12/16/24 10:20 Review of Systems Review of Systems Narrative: General: Denies fever, chills, weight loss HEENT: Denies headache, eye drainage, eye irritation, head trauma, sore throat, voice change Cardiovascular: Positive chest pain, denies palpitations, tachycardia Respiratory: Denies any shortness of breath, cough, wheeze, stridor GI/: Denies any abdominal pain, nausea, vomiting, diarrhea, bright red blood per rectum, melanotic stools, urinary frequency, urinary retention, dysuria, hematuria MSK: Denies any joint pain, muscle pains, swelling Skin: Denies any rashes, lesions, discoloration Neuro: Denies any headache, lightheadedness, dizziness, fainting, weakness Psych: Denies SI/HI Patient History Medical History S/P extracorporeal shock wave therapy (10/14/23) S/P extracorporeal shock wave therapy (09/09/23) History of nephrolithiasis Left nephrolithiasis Myasthenia gravis 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 Renal colic on right side Nephrolithiasis Right ureteral calculus delivery delivered Neurological disease High blood pressure Depression Arthritis Surgical History S/P cervical spinal fusion S/P cystoscopy with ureteral stent placement (08/23/24) Hx of thymectomy (1974) History of bladder suspension procedure (1997) History of knee replacement History of cholecystectomy Family History Mother Blood disease Hearing impairment Hyperlipidemia Hypertension Migraine Son Cancer Father Coronary artery disease Hearing impairment Hypertension Social History marital status: number of children: 3 household members: spouse Smoking Status: Current every day smoker Tobacco: How many years used: 40 alcohol intake: never caffeine: Yes Type(s) of exercise: none Smoking Status: Current every day smoker tobacco type: cigarettes alcohol intake frequency: holidays/special occasions only Exam Narrative Exam Narrative: General: Cooperative, well-developed, not in acute distress HEENT: Normocephalic, atraumatic, PERRLA, normal sclera, eyelids normal Neck: Active full range of motion, atraumatic Chest: Normal to inspection, negative crepitus, no overlying erythema ecchymosis Respiratory: Normal respiratory effort, not in acute respiratory distress, clear to auscultation bilaterally negative cough, wheeze, tachypnea, rhonchi, rales Cardiology: Regular rate rhythm negative gallop, murmur, rubs GI/: No tenderness to palpation, soft, non rigid, normal to inspection, exam deferred MSK: Full active range of motion in all 4 extremities, atraumatic, no tenderness to palpation of any bony prominences Skin: No rashes or lesions noted Neuro: Alert awake oriented x3, moves all 4 extremities spontaneously, cranial nerves intact, able to answer all questions appropriately follows commands appropriately Psych: Cooperative, negative suicidal or homicidal ideations Initial Vital Signs Initial Vital Signs: Vital Signs Temperature 97.7 F 12/25/24 18:13 Pulse Rate 68 12/25/24 18:13 Respiratory Rate 13 12/25/24 18:13 Blood Pressure 139/63 12/25/24 18:13 Pulse Oximetry 96 12/25/24 18:13 Oxygen Delivery Method Room Air 12/25/24 18:13 Course Orders Ordered: ED Orders 12/25/24 18:00 XR chest 1V Stat EKG-12 Lead Stat 12/25/24 18:12 Complete Blood Count AUTO DIFF Stat Comprehensive Metabolic Panel Stat Lipase Stat Magnesium Stat NT-proBNP (BNP-Adult 18+) Stat PTT Partial Thromboplastin Yrn Stat Prothrombin Time INR Stat Troponin & CK Cardiac Panel Stat 12/25/24 20:27 Trop I [Troponin I] Stat Discontinued Medications Aspirin (Aspirin 81 Mg Chew Tab) 324 mg PO NOW ONE Stop: 12/25/24 18:00 Last Admin: 12/25/24 18:04 Dose: 324 mg Documented By: KB Vital Signs Vital signs: Vital Signs - 8 hr 12/25/24 18:13 12/25/24 19:52 Temperature 97.7 F 98.1 F Pulse Rate 68 64 Respiratory Rate 13 Blood Pressure 139/63 120/58 L Pulse Oximetry 96 98 Oxygen Delivery Method Room Air Room Air MDM - Chest Pain Differential Diagnosis Differential diagnosis: Likely stable angina, unstable angina pectoris, atypical chest pain, st elevation myocardial infarction, costochondritis, chest pain and other (Electrolyte abnormality, pneumonia) Lab Data 12/25/24 18:12 12/25/24 18:12 Labs: Lab Results 12/25/24 12/25/24 Range/Units 18:12 20:27 WBC 12.4 H (4.5-11.0) X10^3/uL RBC 4.62 (4.0-5.2) X10^6/uL Hgb 14.1 (12.0-16.0) g/dL Hct 42.0 (36-46) % MCV 90.7 (80-100) fL MCH 30.4 (26-34) PG MCHC 33.5 (30-36) % RDW 13.8 (11.6-14.8) % Plt Count 232 (150-400) X10^3/uL Neut % (Auto) 54.9 (50-75) % Lymph % (Auto) 33.4 (25-40) % [place] % (Auto) 9.1 (3-14) % Eos % (Auto) 1.3 L (2-4) % Baso % (Auto) 1.3 (0-2) % Neut # (Auto) 6800 (8141-7540) /uL Lymph # (Auto) 4200 (1920-1757) /uL [place] # (Auto) 1100 H (0-900) /uL Eos # (Auto) 200 (0-450) /uL Baso # (Auto) 200 H (0-100) /uL PT 10.6 (9.4-12.5) SECONDS INR 0.9 (0.9-1.3) APTT 24 L (25.1-36.5) SECONDS Sodium 136 L (137-145) mmol/L Potassium 3.4 (3.4-5.1) mmol/L Chloride 102 (98-107) mmol/L Carbon Dioxide 26 (22-32) mmol/L BUN 30 H (7-17) mg/dL Creatinine 1.15 H (0.52-1.04) mg/dL Estimated GFR 53 L (>60) mL/min BUN/Creatinine Ratio 26.1 H (6-22) Glucose 97 (70-99) mg/dL Calcium 8.5 (8.4-10.2) mg/dL Magnesium 2.1 (1.6-2.3) mg/dL Total Bilirubin 0.5 (0.2-1.3) mg/dL AST 26 (14-36) IU/L ALT 22 (<35) IU/L Alkaline Phosphatase 71 (38-126) U/L Total Creatine Kinase 36 (30-135) U/L Troponin I < 0.012 < 0.012 (0.01-0.034) ng/mL NT-Pro-B Natriuret Pep 121 (<125) pg/mL Total Protein 7.5 (6.3-8.2) g/dL Albumin 4.2 (3.5-5.0) g/dL Globulin 3.3 (1.7-4.1) g/dL Albumin/Globulin Ratio 1.3 (1.0-2.8) Lipase 36 D (23-300) U/L Imaging Data Chest x-ray: Radiologist's Impression: [address] [address] XRay Report Signed Patient: Terri Rowley MR#: [id number] : 1960 Acct:[id number] Age/Sex: 64 / F Date of Service: 12/25/24 Loc: ED Accession Number: [id number] Procedure: XR chest 1V Ordering Provider: Concha Jasso MD PROCEDURE: XR CHEST 1V INDICATIONS: Chest Pain TECHNIQUE: One view of the chest was acquired. COMPARISON: [facility], , XR CHEST 1V, 12/16/2024, 10:10. FINDINGS: Surgical changes and devices: Cervical fusion hardware, midline sternotomy wires Lungs and pleura: Lungs are clear. No pleural effusions or pneumothorax. Mediastinum: Mediastinal contours appear normal. Heart size is normal. Bones and chest wall: No suspicious bony lesions. Overlying soft tissues appear unremarkable. IMPRESSION: No acute cardiopulmonary abnormality is seen. ECG Data Interpretation: EKG interpreted ED physician sinus 69 beats per minute QTC [address] changes no STEMI MDM Narrative Medical decision making narrative: 64-year-old female with a past medical history of hyperlipidemia, asthma, comes into the ED from home for evaluation of chest pain, states it started earlier today at around noon, nonexertional, stating that she is not having any chest pain currently, to note patient does state that she has been treated for pneumonia he is currently on antibiotics as well as steroids, states that she has been compliant with these medications but is still having some intermittent coughing, chest x-ray without any signs of acute cardiopulmonary abnormality, EKG nonischemic in nature, patient with a heart score of 3, patient had negative troponins x2, symptoms more likely MSK in nature given patient with respiratory issues preceding the pain, patient will be sent home with symptomatic relief instructed to follow up with primary care and cardiology outpatient setting. Patient verbalized understanding of this and agrees to being discharged home with outpatient follow up Discharge Plan Departure Patient Disposition: Home Clinical Impression: Chest pain Instructions: DI for Chest Pain Activity Restrictions/Additional Instructions: Please follow up with primary care and Cardiology Please read the discharge instructions sheet carefully and bring all papers to all doctor follow-up visits, as it may contain information that your doctor may want to see. Disease processes change and evolve, if your symptoms worsen or if you develop any new symptoms that are concerning to you please return for evaluation. Your evaluation today does not show any evidence of any life-threatening/serious illnesses requiring admission to the hospital or surgery. Please follow-up with your doctor for re-evaluation in approximately 1 day. Seek immediate medical attention for any worrisome symptoms. *If you do not have a primary care provider please contact the [facility] Resource line at [phone]. They will ask some questions about your medical history and help get you set up with a doctor in the community. Prescriptions: New cyclobenzaprine 10 mg tablet 10 mg PO BEDTIME PRN (Reason: muscle spasm) 7 Days Qty: 7 0RF No Action sertraline 100 mg Tablet 100 mg PO DAILY baclofen 10 mg tablet 10 mg PO BID cephalexin 500 mg capsule 500 mg PO TID Qty: 30 0RF benzonatate 200 mg capsule 200 mg PO BID-TID PRN (Reason: cough) Qty: 14 0RF prednisone 20 mg tablet 40 mg PO DAILY Qty: 10 0RF doxycycline hyclate 100 mg tablet 100 mg PO BID Qty: 20 0RF morphine 100 mg capsule,extend.release pellets 100 mg PO DAILY multivitamin [Daily Multi-Vitamin] Tablet 1 tab PO DAILY tamsulosin 0.4 mg capsule 0.4 mg PO QPM terbinafine HCl 250 mg tablet 250 mg PO DAILY oxycodone-acetaminophen 10-325 mg tablet 1 tab PO Q8H PRN (Reason: Pain (Scale Score 4-6)) celecoxib 200 mg capsule 200 mg PO BID gabapentin 600 mg tablet 600 mg PO DAILY aspirin 81 mg tablet,delayed release (DR/EC) 81 mg PO DAILY atorvastatin 10 mg tablet 40 mg PO DAILY albuterol sulfate 90 mcg/actuation aerosol powdr breath activated 1 inh inhalation Q4-6H PRN (Reason: Shortness Of Breath Or Wheezing) primidone 50 mg tablet 50 mg PO BEDTIME Referrals: Lavelle Dowd MD [Primary Care Provider, Family Practice] Ayaz Gomez MD [Physician, Cardiology] Stand Alone Forms: Patient Portal/API
[2024-12-25 23:28] VITALS: BP 150/64; PULSE 61; RESP 18; O2SAT 97
== END 2024-12-25 23:28 | disposition home or self-care (01) ==
PROVIDERS: Emergency Medicine; Emergency Provider Student in an Organized Health Care Education/Training Program; PCP Preventive Medicine Public Health & General Preventive Medicine
DX: R07.9 Chest pain, unspecified (principal)
CPT/HCPCS: 36415; 71045; 80053; 82550; 83690; 83735; 83880; 84484; 85025; 85610; 85730; 93005; 93010; 99283; 99284

== ENCOUNTER → 2025-01-16 08:26 | Outpatient (CLI) | payer MEDICARE, OTHER, SELFPAY ==
[2024-08-23 20:30] VITALS: BMI 33.9
--- NOTE | 2025-01-16 08:27 | DI.US.S_ITS ---
PROCEDURE: US RENAL COMPLETE INDICATIONS: POST RIGHT URETEROSCOPY. ?HYDRONEPHROSIS. TECHNIQUE: Real-time scanning was performed of the kidneys and bladder, with image documentation. COMPARISON: Located Within [facility], , RENAL COMPLETE, 08/23/2024, 20:10. FINDINGS: Kidneys: Kidneys are normal in size. Right kidney measures 10.3 cm long; left kidney measures 11.3 cm long. Right renal cortical thickness is 1.6 cm; left renal cortical thickness is 1.6 cm. There is no hydronephrosis. Multiple punctate scattered echogenic foci are noted in left renal parenchyma. No suspicious solid mass lesions. Bladder: Pre-void bladder volume is 211 mL. Post-void residual is 14 mL. Pre- void images demonstrate no intraluminal masses or stones. On pre-void images, bilateral ureteral jets are noted with color Doppler interrogation. (Of note, ureteral jets may not be detectable in up to 25% of cases due to insufficient differences in specific gravity between ureteral and bladder urine). Miscellaneous: No free pelvic fluid. IMPRESSION: 1. Punctate calcifications seen scattered in left renal parenchyma likely represent nonobstructing stones versus vascular calcifications. No hydronephrosis. No solid appearing renal lesion. 2. No gross abnormality is seen in urinary bladder. Small amount of postvoid residual. Dictated by: Arnulfo Gomez M.D. on 01/16/2025 at 9:51 Approved by: Arnulfo Gomez M.D. on 01/16/2025 at 9:53
== END ==
PROVIDERS: PCP Preventive Medicine Public Health & General Preventive Medicine; Referring Provider Urology; Visit Provider Urology
DX: N20.1 Calculus of ureter (principal)
CPT/HCPCS: 76770

== ENCOUNTER → 2025-05-28 13:20 | Outpatient (CLI) | payer MEDICARE, OTHER, SELFPAY ==
[2024-08-23 20:30] VITALS: BMI 33.9
--- NOTE | 2025-05-28 13:21 | DI.US.S_ITS ---
PROCEDURE: US EXTREMITY NONVASC LOWER RT INDICATIONS: Achilles tendinitis TECHNIQUE: Real-time scanning was performed of the right Achilles tendon , with image documentation. COMPARISON: None. FINDINGS: Right Achilles tendon appears grossly intact and no tenosynovitis is seen. There is a small amount of fluid noted adjacent to the lateral malleolus measuring 5.0 x 0.7 x 2.2 cm. No mass or lymphadenopathy is seen. IMPRESSION: 1. Achilles tendon appearing grossly normal in thickness and appears intact. 2. Fluid collection around the tip of the lateral malleolus. If pain persists, consider cross-sectional imaging such as MRI. Dictated by: David Cunningham [facility] Interpreted: Arnulfo Gomez MD on 05/28/2025 at 15:17 Approved by: Arnulfo Gomez M.D. on 05/28/2025 at 15:56
== END ==
PROVIDERS: PCP Preventive Medicine Public Health & General Preventive Medicine; Referring Provider Physician Assistant; Visit Provider Physician Assistant
DX: M76.61 Achilles tendinitis, right leg (principal)
CPT/HCPCS: 76882